=== PATIENT | female | born 1970 | race Caucasian/White ===

== ENCOUNTER 2017-03-18 12:31 | Day surgery (SDC) | payer MEDICARE ==
[~2017-03-18] VITALS: Ht 157.5 cm; Wt 59.1 kg
--- NOTE | ~2017-03-18 | OP ---
PATIENT NAME: SAMPSON SALGADO MEDICAL RECORD: [id number] :70 [facility] AD[facility] DATE: SURGEON: MEI ORTEGA MD DATE OF OPERATION: 03/18/2017 PROCEDURE: Colonoscopy with biopsy. REFERRING PHYSICIAN: Mis Rivera. INDICATIONS: Ms. Salgado is a pleasant 46-year-old woman who has had symptoms of alternating diarrhea, constipation with lower abdominal cramping pain, sometimes relieved by bowel movement. She has not had a colonoscopy in the past. She had an EGD on 10/24/2015 ([place] with findings showing mild gastritis), gastric biopsies were negative for H. pylori, duodenal biopsy showed no significant histopathologic abnormality, and esophageal biopsy showed no significant histopathologic abnormality. She presents for outpatient colonoscopy. PREMEDICATIONS: Total IV anesthesia (history of asthma/COPD), propofol 350 mg. INSTRUMENT: [employer] video colonoscope pediatric. PROCEDURE AND FINDINGS: After receiving informed consent, Ms. Salgado was placed in left lateral decubitus position and sedated as per anesthesia. After achieving adequate level of sedation, digital rectal exam was performed that showed no external hemorrhoidal tags, fissures or fistulas, normal sphincter tone, no palpable rectal masses. The colonoscope was introduced per rectally and advanced to the cecum without difficulty. The cecum, IC valve, and appendiceal orifice were identified. As the colonoscope was withdrawn, careful inspection was made of the lakhani of the colon. Overall mucosa had normal vascular and fold pattern. There was minimal patchy erythema in the ascending colon. Biopsies were obtained to rule out microscopic colitis. There was a small amount of liquid stool present in the colon which was collected for study. In the mid rectum were 2 diminutive polyps adjacent to each other that were cold biopsied. Retroflexion of rectum showed no internal hemorrhoids. A fair to good prep was present. Ms. Salgado tolerated the procedure well, no immediate complications. Withdrawal time was 13 minutes. ASSESSMENT: 1. Minimal nonspecific erythema involving the ascending colon may be prep related, rule out microscopic colitis. 2. Two diminutive rectal polyps status post cold biopsy. 3. Suspect irritable bowel syndrome. RECOMMENDATIONS: 1. Follow up histopathology. 2. NuLev 0.125 mg on the tongue q.4-6 hours p.r.n. abdominal cramping pain. 3. Benefiber or Metamucil daily. 4. Surveillance colonoscopy in 5 years. TRANSINT:[id number] Voice Confirmation ID: [id number] DOCUMENT ID: [id number] OPERATIVE REPORT [id number] NAOMI,MEI REYNA MD CC: [id number] DICTATION DATE: 03/18/17 1444 CNC LATHE PROGRAMMER: 03/18/17 1551 [facility] 03/18/17 [place] [id number]
[2017-03-18] MEDS ORDERED: LUNESTA2 M1 PO (13:20)
[2017-03-18] MEDS ORDERED: BUSPAR5 MG PO (13:22)
[2017-03-18] MEDS ORDERED: XELJANZ 11 MG (13:22)
[2017-03-18] MEDS ORDERED: ADVAIR 100/501 DISK INH (13:23)
[2017-03-18] MEDS ORDERED: LYRICA150 MG PO (13:24)
[2017-03-18] MEDS ORDERED: EFFEXOR XR150 MG (13:24)
[2017-03-18] MEDS ORDERED: EFFEXOR XR75 MG PO (13:24)
[2017-03-18] MEDS ORDERED: ZANAFLEX4 MG PO (13:25)
[2017-03-18] MEDS ORDERED: SINGULAIR10 MG PO (13:25)
[2017-03-18] MEDS ORDERED: OXYCODONE-ACETAMINOP (13:26)
[2017-03-18] MEDS ORDERED: [UNRECOGNIZED DRUG - REMARK] (13:27)
[2017-03-18] MEDS ORDERED: MIRALAX17 GM PO (13:28)
[2017-03-18 13:32] VITALS: BP 104/62; Ht 157.5 cm; Wt 59.1 kg
[2017-03-18 13:58] LABS: BASOPHILS 0.3 % (0-2); EOSINOPHILS 1.3 % (0-7); HEMATOCRIT 37.9 % (36.0-48.0); IMMATURE GRANULOCYTES 0.2 % (0-5); LYMPHOCYTES 29.7 % (15-50); MCH 31.6 pg (26.0-34.0); MCHC 34.3 g/dL (31.0-37.0); MEAN PLATELET VOLUME 9.3 fL (7.4-10.4); MONOCYTES 9.6 % (2-11); NEUTROPHILS 58.9 % (40-80); PLATELET COUNT 328 10x3/uL (130-400); RBC 4.12 10x6/uL (4.00-5.40); WBC 6.3 10x3/uL (4.8-10.8)
[2017-03-18 14:11] LABS: CALC OSMOLALITY 279 mosm/kg (275-300); CHLORIDE - SERUM 104 mmol/L (98-107); CREATININE - SERUM 0.7 mg/dL (0.6-1.3); GLUCOSE 87 mg/dL (74-106); POTASSIUM - SERUM 3.7 mmol/L (3.5-5.1); SODIUM 141 mmol/L (136-145); UREA NITROGEN 12 mg/dL (7-18); eGFR NON AFRICAN AMERICAN > 90 mL/min (90-120)
== END 2017-03-18 15:50 | disposition home or self-care (01) ==
LOC: D.OPS 12:31
PROVIDERS: Anesthesiology
DX: K62.1 Rectal polyp (principal); L53.8 Other specified erythematous conditions; Z01.812 Encounter for preprocedural laboratory examination

== ENCOUNTER → 2017-05-11 09:05 | Outpatient (CLI) | payer MEDICARE ==
[2017-03-18 13:32] VITALS: BMI 23.8
[~2017-05-11 09:05] MED LIST: ADVAIR 100/501 DISK INH; BUSPAR5 MG PO; EFFEXOR XR150 MG; EFFEXOR XR75 MG PO; LUNESTA2 M1 PO; LYRICA150 MG PO; MIRALAX17 GM PO; OXYCODONE-ACETAMINOP; SINGULAIR10 MG PO; XELJANZ 11 MG; ZANAFLEX4 MG PO; [UNRECOGNIZED DRUG - REMARK]
== END | disposition home or self-care (01) ==
LOC: D.US 09:05
DX: R10.11 Right upper quadrant pain (principal)

== ENCOUNTER 2017-07-28 05:35 | Day surgery (SDC) | payer MEDICARE, MEDICAID ==
[2017-07-27 08:17] LABS: HEMATOCRIT 40.5 % (36.0-48.0); HEMOGLOBIN 14.1 g/dL (12-16); MCH 32.3 pg (26.0-34.0); MCHC 34.8 g/dL (31.0-37.0); MCV 92.9 fL (80.0-100.0); MEAN PLATELET VOLUME 9.2 fL (7.4-10.4); RBC 4.36 10x6/uL (4.00-5.40); RDW 12.7 % (11.5-14.5); WBC 12.7 10x3/uL (4.8-10.8)
[~2017-07-28] VITALS: Ht 157.5 cm; Wt 66.7 kg
--- NOTE | ~2017-07-28 | OP ---
PATIENT NAME: SAMPSON SALGADO MEDICAL RECORD: [id number] :70 [facility] ADMISSION DATE: SURGEON: LISSA ABRAMS DPM DATE OF OPERATION: 07/28/2017 PREOPERATIVE DIAGNOSES: 1. Painful hardware, right foot. 2. Arthritis, right first metatarsophalangeal joint. POSTOPERATIVE DIAGNOSES: 1. Painful hardware, right foot. 2. Arthritis, right first metatarsophalangeal joint. PROCEDURES: 1. Removal of hardware, right foot. 2. Fusion, right first metatarsophalangeal joint. ANESTHESIA: Preoperative popliteal block per the anesthesia department with intraoperative general anesthesia. HEMOSTASIS: Right ankle tourniquet at 250 mmHg. PREOPERATIVE DETAILS: The patient was taken to the OR, placed on the operating table in a supine position. This was followed by induction of general anesthesia. The right extremity was then prepped and draped in usual aseptic technique followed by exsanguination of extremity and inflation of tourniquet. PROCEDURE #1: Removal of hardware, right foot. A 15-blade was used to create an incision over the dorsal aspect of the first ray extending to the base of proximal phalanx of the hallux. The incision was deepened down through subcutaneous tissue where a linear periosteal incision was made. The plate was visualized and the plate and the screws were removed. At this time, attention was directed to the first metatarsophalangeal joint. PROCEDURE #2: Fusion, right first metatarsophalangeal joint. The right first MPJ was freed with a McGlamry scoop elevator. There was noted to be significant destruction of the cartilaginous surface with previous partial removal from surgery. At this time, the joint surface of the head of the first metatarsal and base of proximal phalanx were prepared removing all cartilaginous surface. There was noted to be a large cyst in the central aspect of the first met head which was packed with Vitoss bone substitute. At this time, temporary fixation was used to hold the first MPJ in the proper position at which time, a 5-hole plate with 1 hole going through the plate and across the fusion site was placed in an excellent rigid internal fixation technique with excellent alignment of the hallux. The wound was flushed. The deep tissue was closed with 2-0 Vicryl, the subcutaneous tissue with 4-0 Rapide, and the skin was closed with 4-0 Rapide in a subcuticular technique followed by Dermabond. Adaptic, 4 x 4, and Conform were used to dress the wound followed by application of modified Becker compression dressing. Tourniquet was deflated. POSTOPERATIVE DETAILS: The patient tolerated the procedure well and left the OR with vital signs stable and vascular status at preoperative levels. The patient was transported to recovery per anesthesia in stable condition. TRANSINT:[id number] Voice Confirmation ID: [id number] DOCUMENT ID: [id number] OPERATIVE REPORT [id number] SAMPSON SALGADO MCKAY DPM at 0920 CC: [id number] DICTATION DATE: 07/28/17 1033 GLOBAL LOGISTICS ANALYST: 07/28/17 1109 [facility] 07/28/17 [place] [id number] [place] [address]
[~2017-07-28 05:35] MED LIST changes: +ATIVAN1 MG PO; +CYCLOBENZAPRINE10 MG PO; +NICORELIEF4 MG PO; +VENTOLIN HFA18 GM INH
[2017-07-28 06:24] VITALS: BP 106/73; Ht 157.5 cm; Wt 66.7 kg
== END 2017-07-28 12:08 | disposition home or self-care (01) ==
LOC: D.OPS 05:35 → D.PAN 07:40 → D.OPS 08:00
PROVIDERS: Anesthesiology
DX: T84.84XA Pain due to internal orthopedic prosthetic devices, implants and grafts, initial encounter (principal); M19.071 Primary osteoarthritis, right ankle and foot; Z01.812 Encounter for preprocedural laboratory examination

== ENCOUNTER → 2017-09-13 15:26 | Outpatient (CLI) | payer MEDICARE, MEDICAID ==
[2017-07-28 06:24] VITALS: BMI 26.9
[~2017-09-13 15:26] MED LIST changes: -EFFEXOR XR150 MG; +EFFEXOR XR150 MG PO; +FUROSEMIDE20 MG PO; +HYDROCODONE-APA1 TAB PO; +K-TAB10 MEQ PO; +PROTONIX40 MG PO; +ZOFRAN4 MG PO
== END | disposition home or self-care (01) ==
LOC: D.CT 15:26
DX: R10.9 Unspecified abdominal pain (principal)

== ENCOUNTER 2017-10-08 10:10 | Observation (INO) | payer MEDICARE, MEDICAID ==
[~2017-10-08] VITALS: Ht 157.5 cm; Wt 72.1 kg
--- NOTE | ~2017-10-08 | EC ---
PATIENT:SAMPSON SALGADO DATE OF SERVICE: 10/08/17 SEX: F MEDICAL RECORD: [id number] DATE OF : 70 LOCATION:D.M2 D.210 AGE OF PATIENT: 47 ADMISSION DATE: 10/08/17 REFERRING PHYSICIAN: INTERPRETING PHYSICIAN: KERRI TUBBS MD ECHOCARDIOGRAM REPORT ECHO CHARGES 4 ECHO COMPLETE Date: 10/08/17 CLINICAL DIAGNOSIS: CP/EDEMA ECHOCARDIOGRAPHIC MEASUREMENTS (adult normal given) AC root (d.<3.7cm) 3.0 cm LV Septum d (<1.2 cm> 1.2 cm Valve Excursion 1.6 cm LV Septum (systole) 1.8 cm Left Atria (s.<4.0cm> 3.5 cm LVPW d(<1.2cm) 1.1 cm RV (d.<2.3cm) 2.3 cm LVPW (sytole) 2.0 cm LV diastole(<5.6CM) 4.2 cm MV E-F(>70mm/sec) cm LV systole 2.1 cm LVOT Diameter 1.6 cm MV exc.(>10mm) cm Est.ejection fraction (50-75%) % DOPPLER: LVIT cm/sec A 77.0 cm/sec E 100 cm/sec LA cm/sec RVSP 33.2 mmHg LVOT 135 cm/sec AOP1/2T m/s Asc. Ao 149 cm/sec RVOT 69.0 cm/sec RA cm/sec PA 103 cm/sec AV Gradient Peak 8.9 mmHg AV Mean 4.3 mmHg AV Area 1.4 cm MV Gradient Peak 5.4 mmHg MV Mean 2.2 mmHg MV Area cm COMMENTS: Core Stripper: Steven CUBAOE Aircraft Engine Assembler: 1 Dr. Tubbs TAPE# PACS Pericardial Effusion N DATE OF SERVICE: 10/09/2017 FINDINGS: 1. Left ventricular chamber size is within normal limits. Left ventricular systolic function is normal. Overall ejection fraction estimated at 60%. 2. Left atrium, right atrium, and right ventricular chamber sizes are within normal limits. 3. Valvular structures have normal structure and motion. 4. Doppler interrogation reveals mild mitral regurgitation, mild tricuspid regurgitation. No other valvular insufficiency or stenosis. Pulmonary systolic ECHOCARDIOGRAM REPORT [id number] SAMPSON SALGADOLENE pressure is estimated at 33 mmHg. 5. No evidence of pericardial effusion or left ventricular thrombus. TRANSINT:[id number] Voice Confirmation ID: [id number] DOCUMENT ID: [id number] KERRI TUBBS MD at 1950 CC: [id number] DICTATION DATE: 10/09/17 0955 WOOD MILLING MACHINE OPERATOR: 10/09/17 1043 [facility] [place] 10/09/17 [place] [id number] [place] [id number]
--- NOTE | ~2017-10-08 | CN ---
PATIENT NAME:SAMPSON SALGADO MEDICAL RECORD: [id number] : 70 LOCATION:D.M2 D.2103 ADMIT DATE: 10/08/17 ACCOUNT: [id number] CONSULTING PHYSICIAN: KERRI BERNAL MD REFERRING PHYSICIAN: CHARO MEDINA DO DATE OF CONSULTATION: 10/08/2017 CARDIOLOGY CONSULT ADMITTING DIAGNOSES: 1. Chest pain, atypical. 2. Smoking. 3. COPD. 4. Shortness of breath. HISTORY OF PRESENT ILLNESS: Ms. Salgado presents with episodes of chest pain. It is a sharp stabbing chest pain that is mostly under her left breast, somewhat down to her axillary area of her left arm and some under her breast. It is a stabbing, sharp type pain definitely positional, worse when she is lying down and improves when she sits up. Her only other complaint is progressive shortness of breath over the past few months. PHYSICAL EXAMINATION: GENERAL APPEARANCE: Well-nourished, well-developed, appears stated age. Level of distress, comfortable. PSYCHIATRIC: Mental status, alert, normal affect. Orientation, oriented to time, place and person. EYES: Lids and conjunctiva, noninjected. No discharge, no pallor. ENT: Lips, teeth, gums, normal dentition. Oropharynx, no cyanosis, no pallor. NECK: Carotid arteries, bilateral normal upstroke, no bruits, no thrills. JUGULAR VEINS: No jugular venous pressure or distention. CERVICAL LYMPH NODES: Nontender, nonenlarged. THYROID: Not enlarged. Nontender. No nodules. LUNGS: Respiratory effort, unlabored. CHEST: Normal curvature. No thoracic deformity. No chest wall tenderness. Percussion, resonant. Auscultation, clear. No wheezes, no rales, no rhonchi. CARDIOVASCULAR: Precordial exam, nondisplaced. No heaves or pericardial thrills. Rate and rhythm, regular. Heart sounds, normal S1, normal S2. No S3, no gallop, no rub. Systolic murmur, not heard. Diastolic murmur, not heard. EXTREMITIES: No cyanosis, no edema. Peripheral pulses, full and equal in all extremities, except as noted. No bruits appreciated. ABDOMEN: Soft, nondistended. Normal aorta. No bruit. Nontender. No masses. Liver, nontender, no hepatomegaly. Spleen, nontender, no splenomegaly. MUSCULOSKELETAL: No joint tenderness. No joint swelling. No erythema. NEUROLOGICAL: Normal gait, normal strength, normal tone. SKIN: Warm and dry. EKG is with no ST-T abnormalities. Troponin is normal. OVERALL IMPRESSION: Very atypical from a cardiac standpoint, this is most likely musculoskeletal and/or pulmonary in nature. At this time, it does not appear that we will get an echocardiogram secondary to shortness of breath, no other cardiac workup or treatment is necessary. TRANSINT:[id number] Voice Confirmation ID: [id number] DOCUMENT ID: [id number] CONSULT REPORT [id number] SAMPSON SALGADO, KERRI IGLESIAS at 1843 CC: [id number] DICTATION DATE: 10/08/17 1236 CHECK WRITER SALESPERSON: 10/08/17 1243 ADM IN [place] [id number] [place] [id number]
--- NOTE | ~2017-10-08 | DS ---
PATIENT:SAMPSON SALGADO :70 MEDICAL RECORD: [id number] DISCHARGE SUMMARY ADMISSION DATE: 10/08/17 DISCHARGE DATE: 10/09/17 DATE OF ADMISSION: 10/08/2017 DATE OF DISCHARGE: 10/09/2017 ADMISSION DIAGNOSES: Atypical chest pain, edema, elevated D-dimer, shortness of breath. DISCHARGE DIAGNOSES: Atypical chest pain, edema resolved, elevated D-dimer recurrent, shortness of breath with history of chronic obstructive pulmonary disease/asthma. CONSULTS: Cardiology, Arvind Tubbs MD PROCEDURES: CTA of the chest, PE protocol and bilateral lower extremity ultrasound, both of which were negative. Cardiac enzymes were normal. HOSPITAL COURSE: The patient was admitted to the clinic by Dr. Lloyd with edema. She was diuresed. Cardiology consulted. Echocardiogram obtained, which was negative. The patient cleared by cardiology. Cardiac enzymes negative. The patient is feeling much better, edema completely resolved after diuresis. CTA of the chest and lower extremity ultrasound was negative. The patient was discharged home in stable and improved condition. DISCHARGE MEDICATIONS: Per med rec. The patient is anxious to go home. PHYSICAL EXAMINATION: VITAL SIGNS ON DISCHARGE: Temperature 98.2, blood pressure 113/82, heart rate 75, respirations 18, O2 sats 97% on room air. GENERAL: The patient is alert, oriented, no acute distress. HEART: Regular rate and rhythm. LUNGS: Clear to auscultation bilaterally. Breathing is nonlabored. ABDOMEN: Soft. EXTREMITIES: Present times 4. No edema. NEUROLOGIC: Intact. The patient will follow up with Dr. Lloyd next week. See chart for further details. TRANSINT:[id number] Voice Confirmation ID: [id number] DOCUMENT ID: [id number] BAR LUIS DO at 1325 CC: [id number] DICTATION DATE: 10/09/17 1228 FIRE EXTINGUISHER CHARGER: 10/09/17 1306 [facility] [place] 10/09/17 [place] [id number]
[~2017-10-08 10:10] MED LIST changes: -FUROSEMIDE20 MG PO; -HYDROCODONE-APA1 TAB PO; -K-TAB10 MEQ PO; -PROTONIX40 MG PO; -ZOFRAN4 MG PO
[2017-10-08] MEDS ORDERED: HYDROCODONE-APA1 TAB PO (10:40)
[2017-10-08] MEDS ORDERED: K-TAB10 MEQ PO (10:42)
[2017-10-08] MEDS ORDERED: FUROSEMIDE20 MG PO (10:42)
[2017-10-08] MEDS ORDERED: PROTONIX40 MG PO (10:43)
[2017-10-08] MEDS ORDERED: ZOFRAN4 MG PO (10:44)
[2017-10-08 10:50] VITALS: BP 135/85; BMI 29.1
[2017-10-08 11:30] LABS: BASOPHILS 0.3 % (0-2); EOSINOPHILS 1.7 % (0-7); HEMATOCRIT 35.4 % (36.0-48.0); HEMOGLOBIN 12.3 g/dL (12-16); IMMATURE GRANULOCYTES 0.3 % (0-5); LYMPHOCYTES 24.8 % (15-50); MCH 32.5 pg (26.0-34.0); MCHC 34.7 g/dL (31.0-37.0); MCV 93.4 fL (80.0-100.0); MEAN PLATELET VOLUME 8.4 fL (7.4-10.4); MONOCYTES 6.9 % (2-11); PLATELET COUNT 307 10x3/uL (130-400); RBC 3.79 10x6/uL (4.00-5.40); RDW 13.1 % (11.5-14.5); WBC 6.9 10x3/uL (4.8-10.8)
[2017-10-08 11:50] LABS: ALBUMIN 3.2 g/dL (3.4-5.0); ALKALINE PHOSPHATASE 112 U/L (46-116); ALT (SGPT) 32 U/L (10-68); BILIRUBIN - TOTAL 0.19 mg/dL (0.2-1.3); CALC OSMOLALITY 278 mosm/kg (275-300); CALCIUM 8.5 mg/dL (8.5-10.1); CARBON DIOXIDE 28.4 mmol/L (21.0-32.0); CHLORIDE - SERUM 104 mmol/L (98-107); CREATININE - SERUM 0.8 mg/dL (0.6-1.3); GLUCOSE 88 mg/dL (74-106); POTASSIUM - SERUM 3.4 mmol/L (3.5-5.1); PROTEIN - SERUM 6.8 g/dL (6.4-8.2); SODIUM 141 mmol/L (136-145); UREA NITROGEN 9 mg/dL (7-18); eGFR NON AFRICAN AMERICAN 81 mL/min (90-120)
[2017-10-08 11:59] LABS: CKMB 2.5 U/L (0.0-3.6); CREATINE KINASE 154 UL (21-215); MAGNESIUM - SERUM 2.1 mg/dL (1.8-2.4)
[2017-10-08 12:00] LABS: TROPONIN-I < 0.017 ng/mL (0.000-0.060)
[2017-10-08 12:24] LABS: APPEARANCE HAZY (CLEAR); BILIRUBIN NEGATIVE (NEGATIVE); COLOR STRAW (YELLOW); GLUCOSE NEGATIVE (NEGATIVE); KETONE NEGATIVE (NEGATIVE); NITRITE NEGATIVE (NEGATIVE); PROTEIN NEGATIVE (NEGATIVE); SPECIFIC GRAVITY 1.005 (1.005-1.020); UROBILINOGEN NORMAL (NORMAL)
[2017-10-08 16:23] VITALS: BP 132/70
[2017-10-08 17:54] LABS: CKMB 1.5 U/L (0.0-3.6); CREATINE KINASE 132 UL (21-215); TROPONIN-I < 0.017 ng/mL (0.000-0.060)
[2017-10-08 20:16] VITALS: BP 115/58
[2017-10-08 23:42] LABS: CKMB 1.6 U/L (0.0-3.6); CREATINE KINASE 120 UL (21-215); TROPONIN-I < 0.017 ng/mL (0.000-0.060)
[2017-10-09 01:25] VITALS: BP 113/78
[2017-10-09 05:03] VITALS: BP 129/78
[2017-10-09 06:25] LABS: BASOPHILS 0.3 % (0-2); EOSINOPHILS 2.9 % (0-7); HEMATOCRIT 38.2 % (36.0-48.0); HEMOGLOBIN 13.3 g/dL (12-16); IMMATURE GRANULOCYTES 0.2 % (0-5); LYMPHOCYTES 29.3 % (15-50); MCH 32.5 pg (26.0-34.0); MCHC 34.8 g/dL (31.0-37.0); MCV 93.4 fL (80.0-100.0); MEAN PLATELET VOLUME 9.1 fL (7.4-10.4); MONOCYTES 15.5 % (2-11); NEUTROPHILS 51.8 % (40-80); PLATELET COUNT 355 10x3/uL (130-400); RBC 4.09 10x6/uL (4.00-5.40); RDW 13.4 % (11.5-14.5); WBC 6.7 10x3/uL (4.8-10.8)
[2017-10-09 06:27] LABS: ALBUMIN 3.1 g/dL (3.4-5.0); ALKALINE PHOSPHATASE 106 U/L (46-116); ALT (SGPT) 34 U/L (10-68); BILIRUBIN - TOTAL 0.17 mg/dL (0.2-1.3); CALC OSMOLALITY 275 mosm/kg (275-300); CALCIUM 8.9 mg/dL (8.5-10.1); CARBON DIOXIDE 27.6 mmol/L (21.0-32.0); CHLORIDE - SERUM 103 mmol/L (98-107); CREATININE - SERUM 0.8 mg/dL (0.6-1.3); GLUCOSE 90 mg/dL (74-106); POTASSIUM - SERUM 3.9 mmol/L (3.5-5.1); PRO BNP 289 pg/mL (0-125); PROTEIN - SERUM 6.8 g/dL (6.4-8.2); SODIUM 138 mmol/L (136-145); eGFR NON AFRICAN AMERICAN 81 mL/min (90-120)
[2017-10-09 06:30] LABS: UREA NITROGEN 12 mg/dL (7-18)
[2017-10-09 08:41] VITALS: BP 113/82
[2017-10-09 12:39] VITALS: BP 124/79
[2017-10-19] MEDS ORDERED: ATIVAN1 MG PO (12:50)
[2017-10-20 06:35] VITALS: Ht 157.5 cm; Wt 72.1 kg
== END 2017-10-09 13:20 | disposition home or self-care (01) ==
LOC: OBSVTIME 10:10 → D.M2 10:10 → UNDOADMIN 10:10 → D.M2 10:10 → EDSTATUS 11-02 11:24
PROVIDERS: Family Medicine
DX: R07.89 Other chest pain (principal); J44.9 Chronic obstructive pulmonary disease, unspecified; R60.9 Edema, unspecified; K21.9 Gastro-esophageal reflux disease without esophagitis; F41.9 Anxiety disorder, unspecified; F31.9 Bipolar disorder, unspecified; Z72.0 Tobacco use

== ENCOUNTER 2017-10-20 05:30 | Day surgery (SDC) | payer MEDICARE, MEDICAID ==
[2017-10-19 13:19] LABS: BASOPHILS 0.6 % (0-2); EOSINOPHILS 2.1 % (0-7); HEMATOCRIT 40.5 % (36.0-48.0); IMMATURE GRANULOCYTES 0.2 % (0-5); LYMPHOCYTES 29.9 % (15-50); MCH 32.6 pg (26.0-34.0); MCHC 34.6 g/dL (31.0-37.0); MCV 94.2 fL (80.0-100.0); MEAN PLATELET VOLUME 9.3 fL (7.4-10.4); MONOCYTES 6.1 % (2-11); NEUTROPHILS 61.1 % (40-80); WBC 8.7 10x3/uL (4.8-10.8)
[2017-10-19 13:34] LABS: ANION GAP 16.2 mmol/L (8-16); CALCIUM 9.2 mg/dL (8.5-10.1); CARBON DIOXIDE 25.8 mmol/L (21.0-32.0)
[2017-10-19 13:57] LABS: PLATELET COUNT 448 10x3/uL (130-400)
[~2017-10-20] VITALS: Ht 160 cm; Wt 68.5 kg
[~2017-10-20 05:30] MED LIST changes: +FUROSEMIDE20 MG PO; +HYDROCODONE-APA1 TAB PO; +K-TAB10 MEQ PO; +PROTONIX40 MG PO; +ZOFRAN4 MG PO
[2017-10-20 06:35] VITALS: BP 110/78; Ht 160 cm; Wt 68.5 kg
== END 2017-10-20 13:15 | disposition home or self-care (01) ==
LOC: D.OPS 05:30 → D.PAN 07:30 → D.OPS 13:15
PROVIDERS: Obstetrics & Gynecology
DX: N83.02 Follicular cyst of left ovary (principal); N83.01 Follicular cyst of right ovary; N73.6 Female pelvic peritoneal adhesions (postinfective); Z80.41 Family history of malignant neoplasm of ovary; Z01.812 Encounter for preprocedural laboratory examination; Z88.8 Allergy status to other drugs, medicaments and biological substances; Z88.6 Allergy status to analgesic agent; Z88.1 Allergy status to other antibiotic agents; Z88.0 Allergy status to penicillin; Z91.013 Allergy to seafood; Z79.899 Other long term (current) drug therapy

== ENCOUNTER → 2018-04-15 13:39 | Outpatient (CLI) | payer MEDICARE, MEDICAID ==
[2017-10-20 06:35] VITALS: BMI 26.8
== END | disposition home or self-care (01) ==
LOC: D.CT 13:39
PROVIDERS: ATTEND Family Medicine
DX: R41.0 Disorientation, unspecified (principal)

== ENCOUNTER 2018-05-20 16:57 | Inpatient (IN) | payer MEDICARE, MEDICAID ==
[~2018-05-20] VITALS: Ht 157.5 cm; Wt 66.8 kg
[2018-05-20] MEDS ORDERED: K-TAB10 MEQ PO (17:25)
[2018-05-20] MEDS ORDERED: FUROSEMIDE20 MG PO (17:26)
[2018-05-20] MEDS ORDERED: HYDROCODON-ACE1 EA10 PO (17:29)
[2018-05-20] MEDS ORDERED: LAMICTAL25 MG PO (17:33)
[2018-05-20] MEDS ORDERED: VALIUM5 MG PO (17:34)
[2018-05-20 17:55] LABS: BASOPHILS 0.3 % (0-2); EOSINOPHILS 0.1 % (0-7); IMMATURE GRANULOCYTES 0.2 % (0-5); LYMPHOCYTES 14.9 % (15-50); MCHC 34.2 g/dL (31.0-37.0); MCV 90.5 fL (80.0-100.0); MEAN PLATELET VOLUME 8.9 fL (7.4-10.4); MONOCYTES 8.4 % (2-11); NEUTROPHILS 76.1 % (40-80); PLATELET COUNT 424 10x3/uL (130-400); WBC 11.9 10x3/uL (4.8-10.8)
[2018-05-20 18:36] LABS: ALBUMIN 3.9 g/dL (3.4-5.0); ANION GAP 11.9 mmol/L (8-16); BILIRUBIN - TOTAL 0.21 mg/dL (0.2-1.3); CALCIUM 9.6 mg/dL (8.5-10.1); CARBON DIOXIDE 30.3 mmol/L (21.0-32.0); CREATININE - SERUM 1.1 mg/dL (0.6-1.3); POTASSIUM - SERUM 3.2 mmol/L (3.5-5.1); PROTEIN - SERUM 7.9 g/dL (6.4-8.2)
[2018-05-20 20:00] VITALS: BP 118/47
[2018-05-20 21:45] LABS: APPEARANCE CLEAR (CLEAR); BILIRUBIN NEGATIVE (NEGATIVE); COLOR YELLOW (YELLOW); GLUCOSE NEGATIVE (NEGATIVE); KETONE NEGATIVE (NEGATIVE); NITRITE NEGATIVE (NEGATIVE); PROTEIN NEGATIVE (NEGATIVE); UROBILINOGEN NORMAL (NORMAL)
[2018-05-20 22:20] VITALS: BP 118/47; Ht 157.5 cm; Wt 66.8 kg
[2018-05-21] VITALS (7 sets, daily range): BP systolic 88–121; BP diastolic 51–74
[2018-05-21 05:00] LABS: BASOPHILS 0.3 % (0-2); EOSINOPHILS 2.3 % (0-7); HEMATOCRIT 40.2 % (36.0-48.0); HEMOGLOBIN 13.5 g/dL (12-16); IMMATURE GRANULOCYTES 0.1 % (0-5); LYMPHOCYTES 35.1 % (15-50); MCH 30.8 pg (26.0-34.0); MCHC 33.6 g/dL (31.0-37.0); MCV 91.6 fL (80.0-100.0); MONOCYTES 11.5 % (2-11); NEUTROPHILS 50.7 % (40-80); PLATELET COUNT 408 10x3/uL (130-400); RBC 4.39 10x6/uL (4.00-5.40); RDW 13.1 % (11.5-14.5)
[2018-05-21 05:03] LABS: WBC 7.8 10x3/uL (4.8-10.8)
[2018-05-21 05:23] LABS: ALBUMIN 3.7 g/dL (3.4-5.0); ALKALINE PHOSPHATASE 133 U/L (46-116); ALT (SGPT) 65 U/L (10-68); CALC OSMOLALITY 283 mosm/kg (275-300); CALCIUM 9.3 mg/dL (8.5-10.1); CARBON DIOXIDE 28.4 mmol/L (21.0-32.0); CHLORIDE - SERUM 101 mmol/L (98-107); GLUCOSE 97 mg/dL (74-106); POTASSIUM - SERUM 3.2 mmol/L (3.5-5.1); PROTEIN - SERUM 7.7 g/dL (6.4-8.2); SODIUM 139 mmol/L (136-145); UREA NITROGEN 28 mg/dL (7-18); eGFR NON AFRICAN AMERICAN 81 mL/min (90-120)
[2018-05-21 05:24] LABS: CREATININE - SERUM 0.8 mg/dL (0.6-1.3)
[2018-05-22] VITALS: BP 104/67
[2018-05-22 03:00] VITALS: BP 91/56
[2018-05-22 09:08] VITALS: BP 106/64
[2018-05-22] MEDS ORDERED: MIRALAX17 GM PO (10:33)
== END 2018-05-22 11:10 | disposition home or self-care (01) | DRG 392 ==
LOC: D.SDCHOLD 16:57 → D.MS 17:06
PROVIDERS: Family Medicine; ADMIT Internal Medicine Nephrology; ATTEND Internal Medicine Nephrology
DX: K59.00 Constipation, unspecified (principal); E87.6 Hypokalemia; F41.9 Anxiety disorder, unspecified; K21.9 Gastro-esophageal reflux disease without esophagitis; F31.9 Bipolar disorder, unspecified; M79.7 Fibromyalgia; Z87.891 Personal history of nicotine dependence

== ENCOUNTER 2018-06-08 12:15 | Inpatient (IN) | payer MEDICARE, MEDICAID ==
[~2018-06-08 12:15] MED LIST changes: +HYDROCODON-ACE1 EA10 PO; +LAMICTAL25 MG PO; +VALIUM5 MG PO
--- NOTE | 2018-06-08 14:59 | NUR ---
NEW PATIENT DIRECT ADMIT FROM DR BERNAL OFFICE. ADMITTING DIAGNOSIS ABD PAIN AND SOB. PATIENT IS STABLE AND VSS. ADMISSION HISTORY AND ASSESSMENT COMPLETED. IV ACCESS TO RT AC. DUCT LAYER PLACED. URINE SPECIMEN COLLECTED AND TAKEN TO THE LAB. WILL CONTINUE WITH PLAN OF CARE. SR UP X 2 BED IN LOW POSTION AND CALL LIGHT IN REACH.
[2018-06-08] MEDS ORDERED: MINIPRESS 5 MG C5 MG PO (15:13)
[2018-06-08] MEDS ORDERED: REMERON15 MG PO (15:14)
[2018-06-08 15:33] VITALS: BP 103/71; BMI 28.0
[2018-06-08 15:35] LABS: BASOPHILS 0.3 % (0-2); EOSINOPHILS 3.4 % (0-7); HEMATOCRIT 37.2 % (36.0-48.0); HEMOGLOBIN 12.8 g/dL (12-16); LYMPHOCYTES 21.5 % (15-50); MCH 31.2 pg (26.0-34.0); MCHC 34.4 g/dL (31.0-37.0); MCV 90.7 fL (80.0-100.0); MEAN PLATELET VOLUME 9.3 fL (7.4-10.4); MONOCYTES 12.1 % (2-11); NEUTROPHILS 62.7 % (40-80); RDW 12.9 % (11.5-14.5); WBC 7.7 10x3/uL (4.8-10.8)
[2018-06-08 15:38] LABS: PLATELET COUNT 246 10x3/uL (130-400)
[2018-06-08 16:02] LABS: ALBUMIN 3.3 g/dL (3.4-5.0); ANION GAP 14.3 mmol/L (8-16); BILIRUBIN - TOTAL 0.25 mg/dL (0.2-1.3); CALCIUM 8.6 mg/dL (8.5-10.1); CARBON DIOXIDE 28.3 mmol/L (21.0-32.0); CREATININE - SERUM 0.9 mg/dL (0.6-1.3); MAGNESIUM - SERUM 1.6 mg/dL (1.8-2.4); PROTEIN - SERUM 6.5 g/dL (6.4-8.2)
[2018-06-08 16:07] LABS: POTASSIUM - SERUM 2.6 mmol/L (3.5-5.1)
[2018-06-08 16:12] LABS: APPEARANCE CLEAR (CLEAR); BILIRUBIN NEGATIVE (NEGATIVE); COLOR YELLOW (YELLOW); GLUCOSE NEGATIVE (NEGATIVE); KETONE NEGATIVE (NEGATIVE); NITRITE NEGATIVE (NEGATIVE); PROTEIN NEGATIVE (NEGATIVE); UROBILINOGEN NORMAL (NORMAL)
[2018-06-08 21:21] VITALS: BP 112/65
[2018-06-09] VITALS (7 sets, daily range): BP systolic 93–121; BP diastolic 51–78
--- NOTE | 2018-06-09 02:31 | NUR ---
DILAUDID 1 MG GIVEN FOR C/O PAIN TO ABD, RATES PAIN AT AN 8 ON PAIN SCALE.
[2018-06-09 04:41] LABS: BASOPHILS 0.1 % (0-2); HEMATOCRIT 36.5 % (36.0-48.0); HEMOGLOBIN 12.2 g/dL (12-16); IMMATURE GRANULOCYTES 0.1 % (0-5); LYMPHOCYTES 25.3 % (15-50); MCH 30.4 pg (26.0-34.0); MCHC 33.4 g/dL (31.0-37.0); MEAN PLATELET VOLUME 9.2 fL (7.4-10.4); MONOCYTES 14.1 % (2-11); NEUTROPHILS 57.4 % (40-80); PLATELET COUNT 260 10x3/uL (130-400); RBC 4.01 10x6/uL (4.00-5.40); RDW 12.9 % (11.5-14.5); WBC 6.7 10x3/uL (4.8-10.8)
[2018-06-09 05:14] LABS: BILIRUBIN - TOTAL 0.27 mg/dL (0.2-1.3); CALCIUM 8.7 mg/dL (8.5-10.1); CARBON DIOXIDE 31.2 mmol/L (21.0-32.0); PROTEIN - SERUM 6.8 g/dL (6.4-8.2); T4 THYROXIN - FREE 0.72 ng/dL (0.76-1.46); THYROID STIMULATING HORMONE 1.14 uIU/mL (0.36-3.74)
[2018-06-09 05:15] LABS: POTASSIUM - SERUM 3.2 mmol/L (3.5-5.1)
--- NOTE | 2018-06-09 07:24 | NUR ---
MORNING ROUNDS MADE. PT LAYING IN BED. C/O PAIN IN ABD. INFORMED PT THAT I WOULD CHECK AND SEE IF IT WAS TIME FOR PAIN MEDS. A/O X 4. UP AB YARI. R AC IV SL, PATENT. NO REDNESS OR EDEMA NOTED. RM AIR. PT NPO AT THIS TIME FOR CT OF ABD THIS AM. NO EDEMA NOTED. LUNGS CLEAR. FALL PRECAUTIONS IN PLACE. BED LOWERED AND LOCKED. CL IN REACH. WILL CTM
--- NOTE | 2018-06-09 08:29 | NUR ---
PT TOOK MEDS WITHOUT DIFFICULTY. VITALS STABLE. STATES PAIN AT A 10/10 IN ABD. DILAUDID GIVEN 1MG TO R AC IV, PATENT, NS @ 50, NO REDNESS OR EDEMA NOTED. FALL PRECAUTIONS IN PLACE. WILL CTM.
--- NOTE | 2018-06-09 09:58 | NUR ---
I have reviewed this patient and I concur with the Shift Assessment completed by the Licensed Practical Nurse today this shift.
--- NOTE | 2018-06-09 10:37 | NUR ---
PT TO CT VIA WHEELCHAIR
--- NOTE | 2018-06-09 11:32 | NUR ---
D5W STARTED TO IV IN L UPPER ARM. PATENT, NO REDNESS OR EDEMA NOTED. PT RESTING IN BED COMFORTABLY. O2 @ 3L VIA HIGH FLOW. FALL PRECAUTIONS IN PLACE. WILL CTM.
--- NOTE | 2018-06-09 17:20 | NUR ---
PT REPORTS PAIN OF A 10/10 IN ABD. DILAUDID 1MG GIVEN TO IV IN R AC, PATENT, NO REDNESS OR EDEMA NOTED. PT SITTING UP EATING DINNER. FALL PRECAUTIONS IN PLACE. WILL CTM.
--- NOTE | 2018-06-09 20:26 | NUR ---
HS MEDS GIVEN WITH FRESH ICE WATER.
--- NOTE | 2018-06-09 21:17 | NUR ---
DILAUDID 1 MG GIVEN FOR C/O PAIN TO RIGHT UPPER QUADRANT OF ABD, RATES PAIN AT AN 8 ON PAIN SCALE.
[2018-06-10 00:54] VITALS: BP 93/55
--- NOTE | 2018-06-10 03:14 | NUR ---
I have reviewed this patient and I concur with the Shift Assessment completed by the Licensed Practical Nurse today this shift.
--- NOTE | 2018-06-10 03:22 | NUR ---
RESTING WITH EYES CLOSED, RESPERATIONS EVEN, NO S/S DISTRESS NOTED.
[2018-06-10 05:23] VITALS: BP 107/59
[2018-06-10 06:58] LABS: BASOPHILS 0.3 % (0-2); EOSINOPHILS 2.4 % (0-7); HEMATOCRIT 34.7 % (36.0-48.0); HEMOGLOBIN 11.4 g/dL (12-16); IMMATURE GRANULOCYTES 0.2 % (0-5); LYMPHOCYTES 26.7 % (15-50); MCH 30.3 pg (26.0-34.0); MCHC 32.9 g/dL (31.0-37.0); MCV 92.3 fL (80.0-100.0); MEAN PLATELET VOLUME 9.2 fL (7.4-10.4); MONOCYTES 15.1 % (2-11); NEUTROPHILS 55.3 % (40-80); PLATELET COUNT 259 10x3/uL (130-400); RBC 3.76 10x6/uL (4.00-5.40); RDW 13.2 % (11.5-14.5); WBC 6.3 10x3/uL (4.8-10.8)
[2018-06-10 07:17] LABS: ALBUMIN 2.7 g/dL (3.4-5.0); ALKALINE PHOSPHATASE 117 U/L (46-116); ALT (SGPT) 28 U/L (10-68); BILIRUBIN - TOTAL 0.24 mg/dL (0.2-1.3); CALC OSMOLALITY 277 mosm/kg (275-300); CARBON DIOXIDE 30.7 mmol/L (21.0-32.0); CHLORIDE - SERUM 102 mmol/L (98-107); CREATININE - SERUM 0.8 mg/dL (0.6-1.3); GLUCOSE 97 mg/dL (74-106); INR 0.95 (0.85-1.17); POTASSIUM - SERUM 3.7 mmol/L (3.5-5.1); PROTEIN - SERUM 6.4 g/dL (6.4-8.2); PROTIME 12.2 SECONDS (11.6-15.0); SODIUM 140 mmol/L (136-145); UREA NITROGEN 11 mg/dL (7-18); eGFR NON AFRICAN AMERICAN 81 mL/min (90-120)
--- NOTE | 2018-06-10 07:55 | NUR ---
ASSESSMENT DONE DENIES NEEDS.
[2018-06-10 08:49] LABS: ERYTHROCYTE SEDIMENTATION RATE 63 mm/hr (0-20)
[2018-06-10 09:30] VITALS: BP 105/52
[2018-06-10 11:00] VITALS: BP 111/76
[2018-06-10 14:20] VITALS: BMI 28.2
--- NOTE | 2018-06-10 15:54 | NUR ---
I have reviewed this patient and I concur with the Shift Assessment completed by the Licensed Practical Nurse today this shift.
[2018-06-10 16:00] VITALS: BP 132/72
--- NOTE | 2018-06-10 16:48 | [facility]ARE ---
CASE MANAGEMENT DISCHARGE SUMMARY PATIENT: SAMPSON SALGADO UNIT: [id number] ADM DATE: 06/08/18 AGE: 47 : 70 SEX: F [facility] [address] AUTHOR: CHERYL DOTY PHYSICIAN: REFERRING PHYSICIAN: CHARO MEDINA DO DATE OF SERVICE: 06/10/18 Discharge Plan Patient Name: SAMPSON SALGADO Facility: [facility]:[place] : 1970 Planned Disposition: Home Anticipated Discharge Date: 06/10/18 Discharge Date: Expected LOS: 2 Initial Reviewer: [email or web address] Initial Review Date: 06/10/2018 Generated: 06/10/18 5:47 pm Patient Name: SAMPSON SALGADO Page [id number] at 1648 All edits/amendments must be made on the electronic document DICTATION DATE: 06/10/181646 ACUTE SPECIALIST: SHANTI 06/10/181646 RPT#: [id number] DC DATE: STATUS: ADM IN [facility] [address] [place] [address] END OF REPORT
--- NOTE | 2018-06-10 16:57 | MORECARE ---
CASE MANAGEMENT DISCHARGE SUMMARY PATIENT: SAMPSON SALGADO UNIT: [id number] ADM DATE: 06/08/18 AGE: 47 : 70 SEX: F ROOM/BED: D.5745 AUTHOR: CHERYL DOTY PHYSICIAN: REFERRING PHYSICIAN: CHARO MEDINA DO DATE OF SERVICE: 06/10/18 Discharge Plan Patient Name: SAMPSON SALGADO Facility: [facility]:[place] : 1970 Planned Disposition: Home Anticipated Discharge Date: 06/10/18 Discharge Date: Expected LOS: 2 Initial Reviewer: [email or web address] Initial Review Date: 06/10/2018 Generated: 06/10/18 5:57 pm Comments DCP- Discharge Planning Updated by [email or web address]: Darrell Nash on 06/10/18 3:[address] Patient Name: SAMPOSN SALGADO Admission Status: Elective Accout number: [id number] Admission Date: 06-08-2018 : 1970 Admission Diagnosis:UNSPECIFIED ABDOMINAL PAIN Attending: CHARO MEDINA Current LOS: 2 Anticipated DC Date: 06-10-2018 Planned Disposition: Home Primary Insurance: [facility] MEDIC[facility] SOLUTIONS Discharge Planning Comments: CM MET WITH PT AND SPOUSE IN ROOM TO DISCUSS DISCHARGE PLANNING AND NEEDS. SAMPSON SALGADO provided verbal consent to discuss current and ongoing needs with/in the presence of: SPOUSE, BRENDA. PT REPORTS LIVING AT HOME INDEPENDENTLY WITH HER SPOUSE 2 DAYS PER WEEK AND THE OTHER DAYS, HER FRIEND STAYS WITH HER AT HOME. PT HAS A WALKER THAT SHE REPORTS NOT USING MUCH SHE SHOULD. PT HAS NO MEDICAL EQUIPMENT PROVIDER PREFERNECE. PT HAS NO OUTSIDE SERVICES ASSISTING IN THE HOME. PT DENIES DISCHARGE NEEDS, STATES THAT SHE CAME HERE FOR PAIN CONTROL, POINTED TO WHITE BOARD THAT HAD PAIN CONTROL WRITTEN ON IT. PT STATES SHE HAS NOT HAD PAIN CONTROL THIS VISIT AND IS IN PAIN NOW. CM POINTED OUT THE HOUSE SUPERVISORS PHONE CONTACT NUMBER AND DISCUSSED PT'S RIGHT TO COMPLAIN REGARDING HER CARE IN THE HOSPITAL. CM PROVIDED AND DISCUSSED IMPORTANT MESSAGE FROM MEDICARE PROVIDED AND EXPLAINED. PT'S SPOUSE TO TRANPORT HOME AT DISCHARGE. WIND TUNNEL MECHANIC NURSE NOTIFIED. Air Chipper: Darrell Nash DCPIA - Discharge Planning Initial Assessment Updated by [email or web address]: Darrell Nash on 06/10/18 4:50 pm * Is the patient Alert and Oriented? Yes * How many steps to enter\exit or inside your home? 2--I * PCP DR. MEDINA * Pharmacy [facility] * Preadmission Environment Home with Family * ADLs Independent * Equipment Walker * Other Equipment PT REPORTS NOT USING WALKER MUCH SHE SHOULD NO MEDICAL EQUIPMENT PROVIDER PREFERENCE. * List name and contact numbers for known caregivers / representatives who currently or will assist patient after discharge: BRENDA SALGADO, SPOUSE, CHRIS WALDRON, MOTHER, * Verbal permission to speak to the caregivers and representatives has been obtained from the patient. Yes * Community resources currently utilized None * Please name any agencies selected above. NONE * Additional services required to return to the preadmission environment? No * Can the patient safely return to the preadmission environment? Yes * Has this patient been hospitalized within the prior 30 days at any hospital? Yes Patient Name: NAOMISAMPSON Page [id number] at 1657 All edits/amendments must be made on the electronic document DICTATION DATE: 06/10/181656 DIRECTORY CARRIER: SHANTI 06/10/181656 RPT#: [id number] DC DATE: STATUS: [facility]M [facility] [address] [place] [address] END OF REPORT
--- NOTE | 2018-06-10 17:00 | NUR ---
DC GIVEN TO PT
--- NOTE | 2018-06-10 17:02 | NUR ---
DC HOME PER PERSONAL CAR
[2018-06-13 11:10] LABS: OVA + PARASITE EXAM Final report (())
--- NOTE | 2018-06-13 13:02 | EC ---
PATIENT:SAMPSON SALGADO DATE OF SERVICE: 06/08/18 SEX: F MEDICAL RECORD: [id number] DATE OF : 70 LOCATION:D.M2 D.212 AGE OF PATIENT: 47 ADMISSION DATE: 06/08/18 REFERRING PHYSICIAN: INTERPRETING PHYSICIAN: AUSTEN ARELLANO MD ECHOCARDIOGRAM REPORT ECHO CHARGES 4 ECHO COMPLETE Date: 06/09/18 CLINICAL DIAGNOSIS: SOB/EDEMA ECHOCARDIOGRAPHIC MEASUREMENTS (adult normal given) AC root (d.<3.7cm) 3.3 cm LV Septum d (<1.2 cm> 1.2 cm Valve Excursion 1.6 cm LV Septum (systole) 1.5 cm Left Atria (s.<4.0cm> 3.0 cm LVPW d(<1.2cm) 1.3 cm RV (d.<2.3cm) 3.0 cm LVPW (sytole) 1.7 cm LV diastole(<5.6CM) 3.3 cm MV E-F(>70mm/sec) cm LV systole 1.5 cm LVOT Diameter 1.6 cm MV exc.(>10mm) 1.4 cm Est.ejection fraction (50-75%) % DOPPLER: LVIT cm/sec A 72.0 cm/sec E 60.0 cm/sec LA cm/sec RVSP 19 mmHg LVOT 95 cm/sec AOP1/2T m/s Asc. Ao 144 cm/sec RVOT 108 cm/sec RA cm/sec PA 124 cm/sec AV Gradient Peak 8.29 mmHg AV Mean 4.29 mmHg AV Area 1.5 cm MV Gradient Peak 2.59 mmHg MV Mean 1.51 mmHg MV Area cm COMMENTS: Internal Medicine Doctor: 2 LAMAR DONOHUE Patient Service Coordinator: 3 Dr. Duffy TAPE# PACS Pericardial Effusion N DATE OF SERVICE: Adequate 2D, color flow, spectral Doppler, and M-Mode. No LVH. LV internal dimensions are normal. Wall motion is normal. EF is greater than or equal to 55%. Aortic valve is tricuspid. No evidence of stenosis on Doppler interrogation. Left atrium is normal at 3.0 cm. Mitral valve shows no prolapse. Trace MR. Right-sided chambers grossly normal. Trace TR. TRANSINT:[id number] Voice Confirmation ID: [id number] DOCUMENT ID: [id number] ECHOCARDIOGRAM REPORT [id number] NAOMI,SAMPSON ARELLANO,AUSTEN Hoover MD at 1302 CC: [id number] DICTATION DATE: 06/10/18828 FIRE SPRINKLER INSTALLER: 06/10/18 105 DIS IN 06/10/18 [facility] [address] [place] [id number]
[2018-06-13 15:10] LABS: ANA REFLEX - DIRECT Negative (Negative)
== END 2018-06-10 17:02 | disposition home or self-care (01) | DRG 392 ==
LOC: D.SDCHOLD 12:15 → D.M2 12:15
PROVIDERS: Family Medicine Adult Medicine; Internal Medicine Gastroenterology; ADMIT Family Medicine; ATTEND Family Medicine
DX: K58.0 Irritable bowel syndrome with diarrhea (principal); F31.30 Bipolar disorder, current episode depressed, mild or moderate severity, unspecified; R60.0 Localized edema; M06.9 Rheumatoid arthritis, unspecified; M79.7 Fibromyalgia; K76.0 Fatty (change of) liver, not elsewhere classified; N32.89 Other specified disorders of bladder; Z87.891 Personal history of nicotine dependence

== ENCOUNTER 2018-07-04 18:39 | Emergency (ER) | payer MEDICARE, MEDICAID ==
[~2018-07-04] VITALS: Ht 157.5 cm; Wt 71.4 kg
[~2018-07-04 18:39] MED LIST changes: +MINIPRESS 5 MG C5 MG PO; +REMERON15 MG PO
[2018-07-04 18:58] VITALS: Ht 157.5 cm; Wt 71.4 kg
[2018-07-04 19:19] LABS: BASOPHILS 0.5 % (0-2); EOSINOPHILS 2.2 % (0-7); HEMATOCRIT 32.8 % (36.0-48.0); HEMOGLOBIN 10.9 g/dL (12-16); IMMATURE GRANULOCYTES 0.2 % (0-5); LYMPHOCYTES 30.4 % (15-50); MCH 30.7 pg (26.0-34.0); MCHC 33.2 g/dL (31.0-37.0); MCV 92.4 fL (80.0-100.0); MEAN PLATELET VOLUME 9.1 fL (7.4-10.4); MONOCYTES 10.3 % (2-11); NEUTROPHILS 56.4 % (40-80); RBC 3.55 10x6/uL (4.00-5.40); WBC 8.7 10x3/uL (4.8-10.8)
--- NOTE | 2018-07-04 19:22 | NUR ---
PT IS A LOW RISK FOR SUICIDE AND RESOURCES GIVEN FOR HELP AFTER DISCHARGE. PT HAD A THOUGHT OF SUCIDE 20 YEARS BUT NO THOUGHTS SINCE AND ONLY 1 TIME. NO ATTEMPTS. CHARGE NURSE AND ATTENDING NOTIFIED.
[2018-07-04 19:41] LABS: PLATELET COUNT 335 10x3/uL (130-400)
[2018-07-04 19:42] LABS: ALBUMIN 3.4 g/dL (3.4-5.0); ALKALINE PHOSPHATASE 103 U/L (46-116); ALT (SGPT) 20 U/L (10-68); BILIRUBIN - TOTAL 0.26 mg/dL (0.2-1.3); CALC OSMOLALITY 284 mosm/kg (275-300); CALCIUM 8.5 mg/dL (8.5-10.1); CARBON DIOXIDE 28.1 mmol/L (21.0-32.0); CHLORIDE - SERUM 101 mmol/L (98-107); CREATININE - SERUM 1.1 mg/dL (0.6-1.3); GLUCOSE 99 mg/dL (74-106); POTASSIUM - SERUM 3.5 mmol/L (3.5-5.1); PROTEIN - SERUM 6.6 g/dL (6.4-8.2); SODIUM 139 mmol/L (136-145); UREA NITROGEN 31 mg/dL (7-18); eGFR NON AFRICAN AMERICAN 56 mL/min (90-120)
[2018-07-04 19:47] LABS: AMYLASE - SERUM 56 U/L (25-115); LIPASE 143 U/L (73-393)
[2018-07-04 19:49] LABS: TROPONIN-I < 0.017 ng/mL (0.000-0.060)
[2018-07-04 20:08] LABS: APPEARANCE CLEAR (CLEAR); BILIRUBIN NEGATIVE (NEGATIVE); COLOR YELLOW (YELLOW); GLUCOSE NEGATIVE (NEGATIVE); KETONE NEGATIVE (NEGATIVE); NITRITE NEGATIVE (NEGATIVE); PROTEIN NEGATIVE (NEGATIVE); SPECIFIC GRAVITY 1.015 (1.005-1.020); UROBILINOGEN NORMAL (NORMAL)
[2018-07-04 20:09] LABS: HCG URINE NEGATIVE (NEGATIVE)
[2018-07-04 21:18] VITALS: BP 118/79
== END 2018-07-04 21:18 | disposition home or self-care (01) ==
LOC: D.ER 18:39
PROVIDERS: Family Medicine
DX: R60.9 Edema, unspecified (principal); R10.9 Unspecified abdominal pain

== ENCOUNTER → 2018-07-29 09:54 | Outpatient (CLI) | payer MEDICARE, MEDICAID ==
[2018-07-04 18:58] VITALS: BMI 28.8
== END | disposition home or self-care (01) ==
LOC: D.CT 09:54
PROVIDERS: ATTEND Family Medicine
DX: R10.11 Right upper quadrant pain (principal); R10.31 Right lower quadrant pain

== ENCOUNTER 2018-08-15 16:33 | Emergency (ER) | payer MEDICARE, MEDICAID ==
[~2018-08-15] VITALS: Ht 157.5 cm; Wt 73.5 kg
[2018-08-15 16:38] VITALS: Ht 157.5 cm; Wt 73.5 kg
[2018-08-15] MEDS ORDERED: KLOR-CON 1010 MEQ PO (16:44)
[2018-08-15] MEDS ORDERED: LASIX40 MG PO (16:45)
[2018-08-15 17:20] LABS: BASOPHILS 0.1 % (0-2); EOSINOPHILS 0.2 % (0-7); HEMATOCRIT 40.4 % (36.0-48.0); HEMOGLOBIN 13.9 g/dL (12-16); IMMATURE GRANULOCYTES 0.7 % (0-5); LYMPHOCYTES 12.3 % (15-50); MCH 32.7 pg (26.0-34.0); MCHC 34.4 g/dL (31.0-37.0); MCV 95.1 fL (80.0-100.0); MEAN PLATELET VOLUME 9.2 fL (7.4-10.4); MONOCYTES 6.7 % (2-11); PLATELET COUNT 328 10x3/uL (130-400); RBC 4.25 10x6/uL (4.00-5.40); RDW 14.7 % (11.5-14.5); WBC 13.2 10x3/uL (4.8-10.8)
[2018-08-15 17:35] LABS: APTT 20.8 SECONDS (22.8-39.4); INR 0.88 (0.85-1.17); PROTIME 11.5 SECONDS (11.6-15.0)
[2018-08-15 18:01] LABS: ALBUMIN 4.1 g/dL (3.4-5.0); ALKALINE PHOSPHATASE 97 U/L (46-116); ALT (SGPT) 48 U/L (10-68); CALC OSMOLALITY 289 mosm/kg (275-300); CALCIUM 9.7 mg/dL (8.5-10.1); CARBON DIOXIDE 26.7 mmol/L (21.0-32.0); CHLORIDE - SERUM 103 mmol/L (98-107); CREATININE - SERUM 1.1 mg/dL (0.6-1.3); GLUCOSE 121 mg/dL (74-106); POTASSIUM - SERUM 3.7 mmol/L (3.5-5.1); PROTEIN - SERUM 7.3 g/dL (6.4-8.2); SODIUM 142 mmol/L (136-145); UREA NITROGEN 30 mg/dL (7-18); eGFR NON AFRICAN AMERICAN 56 mL/min (90-120)
[2018-08-15 18:11] LABS: CREATINE KINASE 143 UL (21-215); LIPASE 225 U/L (73-393); MAGNESIUM - SERUM 2.1 mg/dL (1.8-2.4); PRO BNP 135 pg/mL (0-125); THYROID STIMULATING HORMONE 0.16 uIU/mL (0.36-3.74); TROPONIN-I < 0.017 ng/mL (0.000-0.060)
[2018-08-15 19:16] LABS: APPEARANCE CLEAR (CLEAR); BILIRUBIN NEGATIVE (NEGATIVE); COLOR YELLOW (YELLOW); GLUCOSE NEGATIVE (NEGATIVE); KETONE NEGATIVE (NEGATIVE); NITRITE NEGATIVE (NEGATIVE); PROTEIN NEGATIVE (NEGATIVE); SPECIFIC GRAVITY 1.015 (1.005-1.020); UROBILINOGEN NORMAL (NORMAL)
[2018-08-15] MEDS ORDERED: LEVAQUIN750 MG PO (19:49)
[2018-08-15 19:53] LABS: UDS - AMPHET NEGATIVE QUAL (NEGATIVE); UDS - BARB NEGATIVE QUAL (NEGATIVE); UDS - BENZO POSITIVE QUAL (NEGATIVE); UDS - COCAINE NEGATIVE QUAL (NEGATIVE); UDS - OPIATE NEGATIVE QUAL (NEGATIVE); UDS - PCP NEGATIVE QUAL (NEGATIVE); UDS - THC NEGATIVE QUAL (NEGATIVE)
[2018-08-15 19:57] VITALS: BP 134/88
== END 2018-08-15 19:57 | disposition home or self-care (01) ==
LOC: D.ER 16:33
PROVIDERS: Family Medicine
DX: R63.5 Abnormal weight gain (principal); R22.9 Localized swelling, mass and lump, unspecified; E07.89 Other specified disorders of thyroid; K08.89 Other specified disorders of teeth and supporting structures; R06.02 Shortness of breath; J01.90 Acute sinusitis, unspecified

== ENCOUNTER → 2018-10-13 12:24 | Outpatient (CLI) | payer MEDICARE, MEDICAID ==
[2018-08-15 16:38] VITALS: BMI 28.8
[~2018-10-13 12:24] MED LIST changes: +KLOR-CON 1010 MEQ PO; +LASIX40 MG PO; +LEVAQUIN750 MG PO
== END | disposition home or self-care (01) ==
LOC: D.MRI 08-04 10:00
PROVIDERS: ATTEND Family Medicine
DX: M62.81 Muscle weakness (generalized) (principal)

== ENCOUNTER → 2019-02-22 07:39 | Outpatient (CLI) | payer MEDICARE, MEDICAID ==
[2018-08-15 16:38] VITALS: BMI 28.8
== END | disposition home or self-care (01) ==
LOC: D.HCCARDIO 07:39
PROVIDERS: ATTEND Internal Medicine Cardiovascular Disease
DX: I20.9 Angina pectoris, unspecified (principal)

== ENCOUNTER → 2019-03-02 14:35 | Outpatient (CLI) | payer MEDICARE, MEDICAID ==
[2018-08-15 16:38] VITALS: BMI 28.8
== END | disposition home or self-care (01) ==
LOC: D.RT 14:35
PROVIDERS: ATTEND Internal Medicine Pulmonary Disease
DX: J44.9 Chronic obstructive pulmonary disease, unspecified (principal); J84.10 Pulmonary fibrosis, unspecified

== ENCOUNTER 2019-03-30 17:48 | Inpatient (IN) | payer MEDICARE, MEDICAID ==
[~2019-03-30] VITALS: Ht 157.5 cm; Wt 75.0 kg
[~2019-03-30 17:48] MED LIST changes: +TRELEGY ELLIPT1 EACH INH
--- NOTE | 2019-03-30 18:50 | NUR ---
PT SITTING UP IN BED. ALERT AWAKE AND ORIENTED x4. NO SIGNS OR SYMPTOMS OF DISTRESS NOTED. RESPIRATIONS EVEN AND UNLABORED. CHIARA MENDOZA APRN AT BEDSIDE. CALL LIGHT WITHI N REACH AND BED IS IN LOWEST POSITION. WILL CONTINUE TO MONITOR.
[2019-03-30] MEDS ORDERED: PERCOCET 10-321 EAC1 PO (19:21)
--- NOTE | 2019-03-30 19:22 | NUR ---
PATIENT ARRIVED HERE FROM DR OFFICE. SHE IS ALERT AND ORIENTED. SHE HAS SOB, WHEEZING, AND NON PRODUCTIVE COUGH.
[2019-03-30 19:23] LABS: BASOPHILS 0.3 % (0-2); EOSINOPHILS 1.8 % (0-7); HEMATOCRIT 35.9 % (36.0-48.0); IMMATURE GRANULOCYTES 0.2 % (0-5); MCH 33.4 pg (26.0-34.0); MCHC 33.4 g/dL (31.0-37.0); MONOCYTES 8.4 % (2-11); NEUTROPHILS 45.3 % (40-80); PLATELET COUNT 275 10x3/uL (130-400); RBC 3.59 10x6/uL (4.00-5.40); RDW 13.5 % (11.5-14.5); WBC 6.5 10x3/uL (4.8-10.8)
[2019-03-30 19:47] LABS: ANION GAP 11.3 mmol/L (8-16); CALCIUM 9.1 mg/dL (8.5-10.1); CARBON DIOXIDE 29.6 mmol/L (21.0-32.0); CREATININE - SERUM 1.1 mg/dL (0.6-1.3); POTASSIUM - SERUM 3.9 mmol/L (3.5-5.1)
[2019-03-30 19:52] LABS: ALBUMIN 3.5 g/dL (3.4-5.0); BILIRUBIN - TOTAL 0.18 mg/dL (0.2-1.3); PROTEIN - SERUM 6.5 g/dL (6.4-8.2)
[2019-03-31] VITALS (7 sets, daily range): BP systolic 112–125; BP diastolic 65–88; Ht 157.5 cm; Wt 75.0 kg
--- NOTE | 2019-03-31 04:29 | NUR ---
PT LYING IN BED AWAKE ALERT AND ORIENTED x4. NO SIGNS OR SYMPTOMS OF DISTRESS NOTED. RESPIRATIONS EVEN AND UNLABORED. PT COMPLAINS OF PAIN. EMILY JENSEN APRN NOTIFIED. PERCOSET 10-325 BID PRN ORDERED. PT ENCOURAGED TO CALL FOR HELP WHEN NEEDED. CALL LIGHT WITHI NI REACH AND BED IS IN LOWEST POSITON WILL CONTINUE TO MONITOR
--- NOTE | 2019-03-31 05:24 | NUR ---
P TLYING IN BED RESTING EASILY AWAKEN WITH VOPICE STIMULATION. NO COMPLAINT OF PAIN AT THIS TIME. CALL LIGHT WITH IN REACH AND BED IS IN LOWEST POSITION. NO SIGNS OR SYMPTOMS OF DISTRESS NOTED. WILL CONTINUE TO MONITOR
[2019-03-31 06:05] LABS: BASOPHILS 0.3 % (0-2); EOSINOPHILS 2.1 % (0-7); HEMATOCRIT 35.5 % (36.0-48.0); HEMOGLOBIN 11.5 g/dL (12-16); IMMATURE GRANULOCYTES 0.3 % (0-5); LYMPHOCYTES 36.8 % (15-50); MCH 32.6 pg (26.0-34.0); MCHC 32.4 g/dL (31.0-37.0); MCV 100.6 fL (80.0-100.0); MONOCYTES 10.3 % (2-11); NEUTROPHILS 50.2 % (40-80); PLATELET COUNT 258 10x3/uL (130-400); RBC 3.53 10x6/uL (4.00-5.40); RDW 13.7 % (11.5-14.5); WBC 6.1 10x3/uL (4.8-10.8)
[2019-03-31 06:23] LABS: ALBUMIN 2.9 g/dL (3.4-5.0); ANION GAP 8.9 mmol/L (8-16); BILIRUBIN - TOTAL 0.11 mg/dL (0.2-1.3); CALCIUM 9.3 mg/dL (8.5-10.1); CARBON DIOXIDE 30.7 mmol/L (21.0-32.0); CREATININE - SERUM 1.2 mg/dL (0.6-1.3); POTASSIUM - SERUM 3.6 mmol/L (3.5-5.1); PROTEIN - SERUM 6.2 g/dL (6.4-8.2)
--- NOTE | 2019-03-31 07:10 | NUR ---
REPORT RECEIVED FROM QUALITY CONTROL CHECKER AND PATIENT CARE ASSUMED. PATIENT LAYING IN BED ON BACK AWAKE, ALERT AND ORIENTED X 4. PATIENT DENIES ANY NEEDS OR PAIN. WILL CONTINUE WITH PLAN OF CARE. SR UP X 2 BED IN LOW POSITION AND CALL LIGHT IN REACH.
--- NOTE | 2019-03-31 15:26 | NUR ---
PATIENT IS STABLE AND VSS. PATIENT UP TO SHOWER. COMPLETE LINEN CHANGE COMPLETED. PATIENT DENIES ANY NEEDS OR PAIN. WILL CONTINUE WITH PLAN OF CARE. SR UP X 2 BED IN LOW POSITION AND CALL LIGHT IN REACH.
--- NOTE | 2019-03-31 19:42 | NUR ---
RECEIVED REPORT, WILL ASSUME CARE OF PT, SLEEPING, NO DISTRESS NOTICED AT THIS TIME, BED IS LOW, SRX2, CALL LIGHT IN REACH, WILL CONTINUE PLAN OF CARE
[2019-04-01] VITALS: BP 128/78
[2019-04-01 01:08] LABS: GLUCOSE NEGATIVE (NEGATIVE); KETONE NEGATIVE (NEGATIVE); NITRITE NEGATIVE (NEGATIVE); UROBILINOGEN NORMAL (NORMAL)
[2019-04-01 01:09] LABS: BILIRUBIN NEGATIVE (NEGATIVE)
[2019-04-01 04:00] VITALS: BP 135/94
[2019-04-01 05:37] LABS: BASOPHILS 0.3 % (0-2); EOSINOPHILS 2.2 % (0-7); HEMATOCRIT 37.5 % (36.0-48.0); HEMOGLOBIN 12.3 g/dL (12-16); IMMATURE GRANULOCYTES 0.3 % (0-5); LYMPHOCYTES 29.5 % (15-50); MCH 33.2 pg (26.0-34.0); MCHC 32.8 g/dL (31.0-37.0); MCV 101.1 fL (80.0-100.0); MONOCYTES 12.3 % (2-11); NEUTROPHILS 55.4 % (40-80); PLATELET COUNT 263 10x3/uL (130-400); RBC 3.71 10x6/uL (4.00-5.40); RDW 13.7 % (11.5-14.5)
[2019-04-01 06:03] LABS: ANION GAP 12.2 mmol/L (8-16); CALCIUM 9.2 mg/dL (8.5-10.1); CARBON DIOXIDE 29.5 mmol/L (21.0-32.0); CREATININE - SERUM 1.1 mg/dL (0.6-1.3); MAGNESIUM - SERUM 1.9 mg/dL (1.8-2.4); POTASSIUM - SERUM 3.7 mmol/L (3.5-5.1)
--- NOTE | 2019-04-01 06:51 | NUR ---
I have reviewed this patient and I concur with the Shift Assessment completed by the Licensed Practical Nurse today this shift.
--- NOTE | 2019-04-01 07:10 | NUR ---
REPORT RECEIVED FROM FURNITURE SALESPERSON AND PATIENT CARE ASSUMED.PATIENT LAYING IN BED AWAKE, ALERT AND ORIENTED X 4. PATIENT DENIES ANY NEEDS OR PAIN. WILL CONTINUE TO MONITOR. SR UP X 2 BED IN LOW POSITION AND CALL LIGHT IN REACH.
[2019-04-01 09:52] VITALS: BP 112/80
[2019-04-01 12:00] VITALS: BP 115/80
--- NOTE | 2019-04-01 13:35 | NUR ---
PATIENT STABLE AND UNCHANGED. AT BS. WILL CONTINUE TO MONITOR. SR UP X 2 BED IN LOW POSTION AND CALL LIGHT IN REACH.
[2019-04-01 17:04] VITALS: BP 126/63
--- NOTE | 2019-04-01 19:30 | NUR ---
RECEIVED REPORT, WILL ASSUME CARE OF PT, WALKING IN [place] WITH FAMILY, WILL CONTINUE PLAN OF CARE
[2019-04-01 20:00] VITALS: BP 136/85
[2019-04-02] VITALS: BP 113/66
[2019-04-02 04:00] VITALS: BP 117/86
--- NOTE | 2019-04-02 04:38 | NUR ---
I have reviewed this patient and I concur with the Shift Assessment completed by the Licensed Practical Nurse today this shift.
[2019-04-02 05:25] LABS: BASOPHILS 0.1 % (0-2); EOSINOPHILS 0 % (0-7); HEMATOCRIT 36.4 % (36.0-48.0); HEMOGLOBIN 12.4 g/dL (12-16); IMMATURE GRANULOCYTES 0.5 % (0-5); LYMPHOCYTES 8.8 % (15-50); MCH 33.6 pg (26.0-34.0); MCHC 34.1 g/dL (31.0-37.0); MCV 98.6 fL (80.0-100.0); MEAN PLATELET VOLUME 8.9 fL (7.4-10.4); MONOCYTES 9.2 % (2-11); NEUTROPHILS 81.4 % (40-80); PLATELET COUNT 282 10x3/uL (130-400); RBC 3.69 10x6/uL (4.00-5.40); RDW 13.5 % (11.5-14.5); WBC 13.5 10x3/uL (4.8-10.8)
[2019-04-02 06:05] LABS: CALCIUM 9.4 mg/dL (8.5-10.1); CARBON DIOXIDE 26.8 mmol/L (21.0-32.0); CREATININE - SERUM 0.9 mg/dL (0.6-1.3); POTASSIUM - SERUM 3.8 mmol/L (3.5-5.1)
--- NOTE | 2019-04-02 07:16 | NUR ---
NO TX GIVEN PT IN SHOWER
--- NOTE | 2019-04-02 07:20 | NUR ---
RECIEVE REPORT. ALERT AND ORIENTED X4. UP IN IN SHOWER. DENIES ANY NEEDS. CONTINUE PLAN OF CARE AND SAFETY PRECAUTIONS.
[2019-04-02 08:36] VITALS: BP 131/86
[2019-04-02] MEDS ORDERED: IPRAT-ALBUT 0.5-3 ML UPD (12:16)
[2019-04-02] MEDS ORDERED: LEVOFLOXACIN500 MG PO (12:16)
[2019-04-02] MEDS ORDERED: FLUTICASONE PRO16 GM NASAL (12:18)
[2019-04-02] MEDS ORDERED: SINGULAIR10 MG PO (12:19)
[2019-04-02] MEDS ORDERED: PREDNISONE10 MG PO (12:19)
[2019-04-02] MEDS ORDERED: TESSALON PERLE100 MG PO (12:20)
[2019-04-02] MEDS ORDERED: MUCINEX DM ER1 EAC1 PO (12:21)
--- NOTE | 2019-04-02 13:28 | MORECARE ---
CASE MANAGEMENT DISCHARGE SUMMARY PATIENT: SAMPSON SALGADO UNIT: [id number] ADM DATE: 03/30/19 AGE: 48 : 70 SEX: F [facility]ED: [facility] AUTHOR: CHERYL DOTY PHYSICIAN: REFERRING PHYSICIAN: CHARO MEDINA DO DATE OF SERVICE: 04/02/19 Discharge Plan Patient Name: SAMPSON SALGADO Facility: [facility]:[place] : 1970 Planned Disposition: Home Anticipated Discharge Date: Discharge Date: Expected LOS: Initial Reviewer: [id number] Initial Review Date: 04/02/2019 Generated: 04/02/19 2:27 pm Patient Name: SAMPSON SALGADO Page 19628 at 1328 All edits/amendments must be made on the electronic document DICTATION DATE: 04/02/19 1327 ELECTRICAL MACHINIST: SHANTI 04/02/19 1327 RPT#: [id number] DC DATE: STATUS: ADM IN [facility] [address] [place] [address] END OF REPORT
--- NOTE | 2019-04-02 13:35 | MORECARE ---
CASE MANAGEMENT DISCHARGE SUMMARY PATIENT: SAMPSON SALGADO UNIT: [id number] ADM DATE: 03/30/19 AGE: 48 : 70 SEX: F ROOM/BED: D.[facility] AUTHOR: CHERYL DOTY PHYSICIAN: REFERRING PHYSICIAN: CHARO MEDINA DO DATE OF SERVICE: 04/02/19 Discharge Plan Patient Name: SAMPSON SALGADO Facility: [facility]:[place] : 1970 Planned Disposition: Home Anticipated Discharge Date: Discharge Date: Expected LOS: Initial Reviewer: [id number] Initial Review Date: 04/02/2019 Generated: 04/02/19 2:35 pm Comments DCP- Discharge Planning Updated by [email or web address]: Erlinda Bailey on 04/02/19 12:[address] Patient Name: SAMPSON SALGADO Admission Status: Elective Accout number: [id number] Admission Date: 03-30-2019 : 1970 Admission Diagnosis: Attending: CHARO MEDINA Current LOS: 3 Anticipated DC Date: Planned Disposition: Home Primary Insurance: [facility] MEDICARE SOLUTIONS Discharge Planning Comments: CM MET WITH PATIENT TO DISCUSS DC PLANNING/NEEDS AFTER OBTAINING VERBAL CONSENT. PLANS TO DC TO HOME TODAY. NEEDS NEBULIZER. WALK TEST DONE AND DOES NOT QUALIFY FOR FOR [facility]. [facility] CONTACTED, WAITING FOR CALL BACK. IMM SIGNED. CM TO FOLLOW AND ASSIST NEEDED. Population Health Manager: Erlinda Bailey External Providers [facility] Next Contact Date: Service Request Date: Service Type: Resolution: Reviewer: Comments: Coverage Notice Reviewer: [id number] Bill Bailey Notice Issued Date-Time: 04/02/2019 13:28 Notice Type: Patient Choice Letter Notice Delivered To: Relationship to Patient: Internal Combustion Engineer Name: Delivery Method: HAND - Hand Delivered Rimma Days: Prior Verbal Notification: Recipient Understood Notice: Yes Recipient Signature: Yes Med Rec Note Co-signed by Attending: Coverage Notice Comment: HAI Reviewer: [id number] Bill Bailey Notice Issued Date-Time: 04/02/2019 13:28 Notice Type: IM Discharge Notice Notice Delivered To: Relationship to Patient: Internal Combustion Engineer Name: Delivery Method: HAND - Hand Delivered Rimma Days: Prior Verbal Notification: Recipient Understood Notice: Yes Recipient Signature: Yes Med Rec Note Co-signed by Attending: Coverage Notice Comment: Last DP export: 04/02/19 12:28 p Patient Name: SAMPSON SALGADO Page 85042 at 1335 All edits/amendments must be made on the electronic document DICTATION DATE: 04/02/191334 QUALITY AND RELIABILITY ENGINEER: SHANTI 04/02/19 1335 RPT#: [id number] DC DATE: STATUS: ADM IN [facility] [address] [place] [address] END OF REPORT
--- NOTE | 2019-04-02 13:42 | MORECARE ---
CASE MANAGEMENT DISCHARGE SUMMARY PATIENT: SAMPSON SALGADO UNIT: [id number] ADM DATE: 03/30/19 AGE: 48 : 70 SEX: F ROOM/BED: D.[facility] AUTHOR: CHERYL DOTY PHYSICIAN: REFERRING PHYSICIAN: CHARO MEDINA DO DATE OF SERVICE: 04/02/19 Discharge Plan Patient Name: SAMPSON SALGADO Facility: [facility]:[place] : 1970 Planned Disposition: Home Anticipated Discharge Date: Discharge Date: Expected LOS: Initial Reviewer: [id number] Initial Review Date: 04/02/2019 Generated: 04/02/19 2:42 pm Comments DCP- Discharge Planning Updated by [email or web address]: Erlinda Bailey on 04/02/19 12:[address] Patient Name: SAMPSON SALGADO Admission Status: Elective Accout number: [id number] Admission Date: 03-30-2019 : 1970 Admission Diagnosis: Attending: CHARO MEDINA Current LOS: 3 Anticipated DC Date: Planned Disposition: Home Primary Insurance: [facility] MEDICARE SOLUTIONS Discharge Planning Comments: CM MET WITH PATIENT TO DISCUSS DC PLANNING/NEEDS AFTER OBTAINING VERBAL CONSENT. PLANS TO DC TO HOME TODAY. NEEDS NEBULIZER. WALK TEST DONE AND DOES NOT QUALIFY FOR FOR [facility]. [facility] CONTACTED, WAITING FOR CALL BACK. IMM SIGNED. CM TO FOLLOW AND ASSIST NEEDED. Cobbler Apprentice: Erlinda Bailey Appended by Erlinda Bailey on 04/02/2019 13:37 LOCKER ATTENDANT: OSIRIS WITH [facility] CALLED AND THEY WILL DELIVER HER NEBULIZER TO HER HOUSE. Coverage Notice Reviewer: [id number] Bill Bailey Notice Issued Date-Time: 04/02/2019 13:28 Notice Type: Patient Choice Letter Notice Delivered To: Relationship to Patient: Seismic Engineer Name: Delivery Method: HAND - Hand Delivered Rimma Days: Prior Verbal Notification: Recipient Understood Notice: Yes Recipient Signature: Yes Med Rec Note Co-signed by Attending: Coverage Notice Comment: HAI Reviewer: [id number] Bill Bailey Notice Issued Date-Time: 04/02/2019 13:28 Notice Type: IM Discharge Notice Notice Delivered To: Relationship to Patient: Seismic Engineer Name: Delivery Method: HAND - Hand Delivered Rimma Days: Prior Verbal Notification: Recipient Understood Notice: Yes Recipient Signature: Yes Med Rec Note Co-signed by Attending: Coverage Notice Comment: Last DP export: 04/02/19 12:35 p Patient Name: SAMPSON SALGADO Page 98789 at 1342 All edits/amendments must be made on the electronic document DICTATION DATE: 04/02/19 1342 CLOTH SHEARING SUPERVISOR: SHANTI 04/02/19 1342 RPT#: [id number] DC DATE: STATUS: ADM IN [facility] [address] [place] [address] END OF REPORT
--- NOTE | 2019-04-02 14:41 | NUR ---
ALERT AND ORIENTED X4. DC RT FA IV TIP INTACT. DISCHARGE INSTRUCTIONS GIVEN VERBALLY AND WRITTEN. DISCHARGE PAPERS SIGNED ON CHART. ESCORT TO RIDE VIA WHEELCHAIR. REMAINS FREE FROM INJURY.
--- NOTE | 2019-04-03 09:56 | MORECARE ---
CASE MANAGEMENT DISCHARGE SUMMARY PATIENT: SAMPSON SALGADO UNIT: [id number] ADM DATE: 03/30/19 AGE: 48 : 70 SEX: F ROOM/BED: D.[facility] AUTHOR: CHERYL DOTY PHYSICIAN: REFERRING PHYSICIAN: CHARO MEDINA DO DATE OF SERVICE: 04/03/19 Discharge Plan Patient Name: SAMPSON SALGADO Facility: [facility]:[place] : 1970 Planned Disposition: Home Anticipated Discharge Date: 04/02/19 Discharge Date: 04/02/2019 Expected LOS: 3 Initial Reviewer: [id number] Initial Review Date: 04/02/2019 Generated: 04/03/19 10:56 am Comments DCP- Discharge Planning Updated by [email or web address]: Erlinda Bailey on 04/02/19 12:[address] Patient Name: SAMPSON SALGADO Admission Status: Elective Accout number: [id number] Admission Date: 03-30-2019 : 1970 Admission Diagnosis: Attending: CHARO MEDINA Current LOS: 3 Anticipated DC Date: Planned Disposition: Home Primary Insurance: [facility] MEDICARE SOLUTIONS Discharge Planning Comments: CM MET WITH PATIENT TO DISCUSS DC PLANNING/NEEDS AFTER OBTAINING VERBAL CONSENT. PLANS TO DC TO HOME TODAY. NEEDS NEBULIZER. WALK TEST DONE AND DOES NOT QUALIFY FOR FOR [facility]. [facility] CONTACTED, WAITING FOR CALL BACK. IMM SIGNED. CM TO FOLLOW AND ASSIST NEEDED. Open Hearth Melter: Erlinda Bailey Appended by Erlinda Bailey on 04/02/2019 13:37 HAT BODY SORTER: OSIRIS WITH [facility] CALLED AND THEY WILL DELIVER HER NEBULIZER TO HER HOUSE. Coverage Notice Reviewer: [id number] Bill Bailey Notice Issued Date-Time: 04/02/2019 13:28 Notice Type: Patient Choice Letter Notice Delivered To: Relationship to Patient: Flight Attendant Inflight Services Name: Delivery Method: HAND - Hand Delivered Rimma Days: Prior Verbal Notification: Recipient Understood Notice: Yes Recipient Signature: Yes Med Rec Note Co-signed by Attending: Coverage Notice Comment: HAI Reviewer: [id number] Bill Bailey Notice Issued Date-Time: 04/02/2019 13:28 Notice Type: IM Discharge Notice Notice Delivered To: Relationship to Patient: Flight Attendant Inflight Services Name: Delivery Method: HAND - Hand Delivered Rimma Days: Prior Verbal Notification: Recipient Understood Notice: Yes Recipient Signature: Yes Med Rec Note Co-signed by Attending: Coverage Notice Comment: Last DP export: 04/02/19 12:42 p Patient Name: SAMPSON SALGADO Page 22447 at 0956 All edits/amendments must be made on the electronic document DICTATION DATE: 04/03/19955 METEOROLOGIST IN CHARGE: SHANTI 04/03/1956 RPT#: [id number] DC DATE:04/02/19 STATUS: DIS IN [facility] [address] [place] [address] END OF REPORT
--- NOTE | 2019-04-03 10:04 | MORECARE ---
CASE MANAGEMENT DISCHARGE SUMMARY PATIENT: SAMPSON SALGADO UNIT: [id number] ADM DATE: 03/30/19 AGE: 48 : 70 SEX: F ROOM/BED: D.[facility] AUTHOR: CHERYL DOTY PHYSICIAN: REFERRING PHYSICIAN: CHARO MEDINA DO DATE OF SERVICE: 04/03/19 Discharge Plan Patient Name: SAMPSON SALGADO Facility: [facility]:[place] : 1970 Planned Disposition: Home Anticipated Discharge Date: 04/02/19 Discharge Date: 04/02/2019 Expected LOS: 3 Initial Reviewer: [email or web address] Initial Review Date: 04/02/2019 Generated: 04/03/19 11:04 am Comments DCP- Discharge Planning Updated by [id number]: Erlinda Bailey on 04/02/19 12:[address] Patient Name: SAMPSON SALGADO Admission Status: Elective Accout number: [id number] Admission Date: 03-30-2019 : 1970 Admission Diagnosis: Attending: CHARO MEDINA Current LOS: 3 Anticipated DC Date: Planned Disposition: Home Primary Insurance: [facility] MEDICARE SOLUTIONS Discharge Planning Comments: CM MET WITH PATIENT TO DISCUSS DC PLANNING/NEEDS AFTER OBTAINING VERBAL CONSENT. PLANS TO DC TO HOME TODAY. NEEDS NEBULIZER. WALK TEST DONE AND DOES NOT QUALIFY FOR FOR [facility]. [facility]I CONTACTED, WAITING FOR CALL BACK. IMM SIGNED. CM TO FOLLOW AND ASSIST NEEDED. Inspection Supervisor: Erlinda Bailey Appended by Erlinda Bailey on 04/02/2019 13:37 UNDERWATER TRAPPER: OSIRIS WITH [facility] CALLED AND THEY WILL DELIVER HER NEBULIZER TO HER HOUSE. Coverage Notice Reviewer: [id number] Bill Bailey Notice Issued Date-Time: 04/02/2019 13:28 Notice Type: Patient Choice Letter Notice Delivered To: Relationship to Patient: Dairy Associate Name: Delivery Method: HAND - Hand Delivered Rimma Days: Prior Verbal Notification: Recipient Understood Notice: Yes Recipient Signature: Yes Med Rec Note Co-signed by Attending: Coverage Notice Comment: HAI Reviewer: [id number] Bill Bailey Notice Issued Date-Time: 04/02/2019 13:28 Notice Type: IM Discharge Notice Notice Delivered To: Relationship to Patient: Dairy Associate Name: Delivery Method: HAND - Hand Delivered Rimma Days: Prior Verbal Notification: Recipient Understood Notice: Yes Recipient Signature: Yes Med Rec Note Co-signed by Attending: Coverage Notice Comment: Last DP export: 04/02/19 12:42 p Patient Name: SAMPSON SALGADO Page 38914 at 1004 All edits/amendments must be made on the electronic document DICTATION DATE: 04/03/19 1004 PAD MACHINE FEEDER: SHANTI 04/03/19 1004 RPT#: [id number] DC DATE:04/02/19 STATUS: DIS IN [facility] [address] [place] [address] END OF REPORT
[2019-04-04 12:09] LABS: IMMUNOGLOBULIN A 206 mg/dL (87-352); IMMUNOGLOBULIN G 597 mg/dL (700-1600)
[2019-04-06 06:09] LABS: IGG SUBCLASS 1 328 mg/dL (248-810); IGG SUBCLASS 2 162 mg/dL (130-555); IGG SUBCLASS 3 50 mg/dL (15-102); IGG SUBCLASS 4 39 mg/dL (2-96); IGGS - IGG SERUM 601 mg/dL (700-1600)
[2019-04-06 10:10] LABS: IMMUNOGLOBULIN E 65 IU/mL (6-495)
== END 2019-04-02 15:14 | disposition home or self-care (01) | DRG 193 ==
LOC: D.M2 17:48
PROVIDERS: Internal Medicine Pulmonary Disease; ADMIT Family Medicine; ATTEND Family Medicine
DX: J18.9 Pneumonia, unspecified organism (principal); J96.01 Acute respiratory failure with hypoxia; F17.213 Nicotine dependence, cigarettes, with withdrawal; M06.9 Rheumatoid arthritis, unspecified; K21.9 Gastro-esophageal reflux disease without esophagitis; F41.8 Other specified anxiety disorders; F31.9 Bipolar disorder, unspecified; K58.9 Irritable bowel syndrome, unspecified; J20.9 Acute bronchitis, unspecified; D50.9 Iron deficiency anemia, unspecified

== ENCOUNTER 2019-04-22 08:17 | Inpatient (IN) | payer MEDICARE, MEDICAID ==
[~2019-04-22] VITALS: Ht 157.5 cm; Wt 71.9 kg
[~2019-04-22 08:17] MED LIST changes: +FLUTICASONE PRO16 GM NASAL; +IPRAT-ALBUT 0.5-3 ML UPD; +LEVOFLOXACIN500 MG PO; +MUCINEX DM ER1 EAC1 PO; +PERCOCET 10-321 EAC1 PO; +PREDNISONE10 MG PO; +TESSALON PERLE100 MG PO
[2019-04-22 08:49] LABS: BASOPHILS 0.1 % (0-2); EOSINOPHILS 1.9 % (0-7); HEMATOCRIT 40.4 % (36.0-48.0); HEMOGLOBIN 13.8 g/dL (12-16); IMMATURE GRANULOCYTES 0.2 % (0-5); LYMPHOCYTES 20.8 % (15-50); MCH 33.2 pg (26.0-34.0); MCHC 34.2 g/dL (31.0-37.0); MCV 97.1 fL (80.0-100.0); MONOCYTES 12.8 % (2-11); NEUTROPHILS 64.2 % (40-80); PLATELET COUNT 298 10x3/uL (130-400); RBC 4.16 10x6/uL (4.00-5.40); RDW 13.5 % (11.5-14.5); WBC 8.3 10x3/uL (4.8-10.8)
--- NOTE | 2019-04-22 08:50 | NUR ---
PATIENT IN WITH C/O SOB, STATES SHE WOKE UP WITH SOB, WAS DIAGNOSED WITH PNEUMONA LAST WEEK. PATIENT IS WITHOUT DISTRESS AT TIS TIME, SPOUSE AT BEDSIDE.
[2019-04-22 08:54] VITALS: BP 137/90
[2019-04-22 08:54] LABS: CALC OSMOLALITY 281 mosm/kg (275-300); CALCIUM 11.3 mg/dL (8.5-10.1); CARBON DIOXIDE 25.2 mmol/L (21.0-32.0); CHLORIDE - SERUM 103 mmol/L (98-107); CREATININE - SERUM 1.1 mg/dL (0.6-1.3); GLUCOSE 108 mg/dL (74-106); POTASSIUM - SERUM 3.8 mmol/L (3.5-5.1); SODIUM 139 mmol/L (136-145); UREA NITROGEN 22 mg/dL (7-18); eGFR NON AFRICAN AMERICAN 56 mL/min (90-120)
[2019-04-22 08:57] LABS: APTT 26.6 SECONDS (22.8-39.4); INR 0.89 (0.85-1.17)
[2019-04-22 09:11] LABS: ALBUMIN 3.6 g/dL (3.4-5.0); ALKALINE PHOSPHATASE 89 U/L (30-120); ALT (SGPT) 34 U/L (10-68); CKMB 4.5 U/L (0.0-3.6); CREATINE KINASE 149 UL (21-215); PRO BNP 175 pg/mL (0-125); PROTEIN - SERUM 7.2 g/dL (6.4-8.2)
[2019-04-22 09:13] LABS: TROPONIN-I < 0.017 ng/mL (0.000-0.060)
[2019-04-22 11:50] VITALS: BP 136/92
--- NOTE | 2019-04-22 12:05 | NUR ---
PT ARRIVES TO ROOM VIA WHEELCHAIR ESCORTED BY ER STAFF. PT IS AAO X 4. SPOUSE IS AT BEDSIDE. INCENTIVE SPIROMETER AT BEDSIDE AND EDUCATION GIVEN PERTAINING TO USE AND IMPORTANCE OF USE. PT VERBALIZES UNDERSTANDING AND STATES "ROMA USED ONE OF THOSE MANY TIMES". NON SKID FOOTWEAR AVAILABLE FOR PT IF PT WOULD LIKE. PT IS REFUSING REDE ALARM. SEE NURSE NOTE. RESPIRATIONS ARE EVEN AND UNLABORED. PT DENIES PRESENCE OF N/V. PT STATES "MY MAIN CONCERN RIGHT NOW IS THAT THEY GET ME MY MEDICINES THAT I HAVE TO HAVE EVERY DAY." PT REPORTS A HX OF BIPOLAR/DEPRESSION/PTSD. PT REPORTS THAT SHE HAS ATTEMPTED SUICIDE "3 YEARS AGO" AND DENIES ANY CURRENT FEELINGS OF SUICIDE. DENIES HAVING A PLAN IN PLACE. PT STATES "THATS WHY THEY GIVE ME MY MEDICINE. IT MAKES ME HAPPY". PT ORIENTED TO ROOM AND HOSPITAL POLICY ON ADMISSION. ADMISSION ASSESSMENT COMPLETE.
[2019-04-22 12:30] VITALS: BP 105/69; BMI 29.0
--- NOTE | 2019-04-22 13:08 | NUR ---
CATHODE RAY TUBE SALVAGE PROCESSOR NOTIFIED OF PT SUICIDE RISK ASSESSMENT. WILL WAIT FOR FURTHER EVALUATION.
--- NOTE | 2019-04-22 13:12 | NUR ---
PT REFUSING FALL PRECAUTIONS/BED ALARM AT THIS TIME. RELEASE OF RESPONSIBILITY SIGNED BY PT. PT IS AAOX 4 AND INFORMED OF SAFETY AND PRECAUTIONS FOR FALL RISKS. PT ALSO REFUSES SCDS AT THIS TIME. PT INFORMED OF RISK FOR DVT AND PT VERBALIZES UNDERSTADNING AND DENIES FURTHER QUESTIONS/CONCERNS/NEEDS AT THIS TIME. BED IS IN THE LOWEST POSITION. CALL LIGHT AND BEDSIDE TABLE ARE WITIHN REACH. SIDE RAILS X 2. SPOUSE AT BEDSIDE. WILL CONT TO MONITOR. SIGNED WAIVER PLACED IN PT CHART.
--- NOTE | 2019-04-22 14:38 | NUR ---
SITTING UP IN BED RESPIRATORY TREATMENT IN PROGRESS. PT IS SWAYING BACK AND STATING "I HAVE TO HAVE MY MEDICINES. MY ANXIETY IS REALLY HIGH AND I NEED MY MEDICINE". PAGE PLACED TO CHIARA MENDOZA APRN TO NOTIFY. WILL AWAIT FURTHER INSTRUCTION.
--- NOTE | 2019-04-22 14:52 | NUR ---
PT GIVEN MEDICATIONS PER ORDER. SEE EMAR. PT WITH CONTINUED COMPLAINTS OF "ANXIETY" AND STATES "MY LAMICTAL DOSE IS NOT RIGHT! THEY HAVE TO FIX THAT RIGHT NOW! OR ELSE I WILL HAVE TO START ALL OVER AND BE LIKE THIS FOR ANOTHER WEEK" PAGE PLACED TO CHIARA MENDOZA APRN TO NOTIFY. WILL AWAIT FURTHER INSTRUCTION.
--- NOTE | 2019-04-22 15:01 | NUR ---
CHIARA MENDOZA APRN RETURNED PAGE. TELEPHONE ORDERS RECD TO ADJUST DOSE OF LAMICATL TO CURRENT DOES OF 200MG. WILL PLACE ORDER.
[2019-04-22] MEDS ORDERED: LYRICA75 MG PO (15:10)
--- NOTE | 2019-04-22 16:16 | NUR ---
PT IS A MODERATE RISK PER ASSESSMENT. DR. TAYLOR NOTIFIED AND NO SITTER NEEDED. PT HAS A HX OF BIPOLAR, SEVERE ANXIETY, AND PTSD. PT DENIES SI AT THIS TIME. PT EXPRESSES APPROPRIATE COPING SKILLS AND HAS A GREAT SUPPORT GROUP. RESOURCES GIVEN AND PT VERBALIZED UNDERSTANDING.
[2019-04-22 16:45] VITALS: BP 124/85
--- NOTE | 2019-04-22 17:43 | NUR ---
TAKE UP SUPERVISOR NOTIFIED OF NEED FOR OVERRIDE ON NICOTINE PATCH.
[2019-04-22 20:00] VITALS: BP 123/77
--- NOTE | 2019-04-22 20:45 | NUR ---
UP AD YARI IN ROOM. RESP EVEN AND UNALBORED. NO DISTRESS NOTED.SL TO LFA WIHTOUT REDNESS OR EDEMA NOTED. NO COMPLAINTS VOICED. CL IN REACH
[2019-04-23] VITALS: BP 128/87
[2019-04-23 04:00] VITALS: BP 121/86
[2019-04-23 06:08] LABS: BASOPHILS 0 % (0-2); EOSINOPHILS 0 % (0-7); HEMATOCRIT 39.4 % (36.0-48.0); HEMOGLOBIN 13.6 g/dL (12-16); IMMATURE GRANULOCYTES 0.3 % (0-5); LYMPHOCYTES 9.8 % (15-50); MCH 33.2 pg (26.0-34.0); MCHC 34.5 g/dL (31.0-37.0); MCV 96.1 fL (80.0-100.0); MEAN PLATELET VOLUME 9.3 fL (7.4-10.4); MONOCYTES 2.7 % (2-11); NEUTROPHILS 87.2 % (40-80); RDW 13.5 % (11.5-14.5)
[2019-04-23 06:21] LABS: ALBUMIN 3.6 g/dL (3.4-5.0); ANION GAP 16.4 mmol/L (8-16); BILIRUBIN - TOTAL 0.27 mg/dL (0.2-1.3); CALCIUM 9.9 mg/dL (8.5-10.1); CARBON DIOXIDE 24.2 mmol/L (21.0-32.0); CREATININE - SERUM 1.1 mg/dL (0.6-1.3); MAGNESIUM - SERUM 1.7 mg/dL (1.8-2.4); POTASSIUM - SERUM 3.6 mmol/L (3.5-5.1); PROTEIN - SERUM 7.5 g/dL (6.4-8.2)
[2019-04-23 06:30] LABS: PLATELET COUNT 360 10x3/uL (130-400); WBC 10.5 10x3/uL (4.8-10.8)
--- NOTE | 2019-04-23 07:04 | NUR ---
I have reviewed this patient and I concur with the Shift Assessment completed by the Licensed Practical Nurse today this shift.
--- NOTE | 2019-04-23 07:05 | NUR ---
PATIENT A/O AT THIS TIME. SHIFT REPORT GIVEN. CL IN REACH. NO CONCERNS AT THIS TIME. WCTM
[2019-04-23 07:39] VITALS: BP 116/79
--- NOTE | 2019-04-23 08:37 | NUR ---
0819: RAPID RESPONSE NOTED AT THIS TIME, PT C/O CHEST PAIN WHICH RADIATES TO RT SHOULDER. PT ALSO C/O FACE/LIPS/TONGUE NUMB WITH SLIGHT SLUR SPEECH. ALL OTHER NEURO CHECKS NOTED WNL FOR PT. EYES PERRLA, SMILE/TONGUE SYMMETRICAL. AFTER A FEW MOMENTS PT SPEECH CLEAR. THROUGHOUT ENTIRE TIME PT NOTED TO BE COMPLETLY ALERT AND ORIENTED AND GOOD HISTORIAN TO STATUS AND MEDICAL HISTORY. ALSO NOTED THAT PT PUPILS ARE SIZE 5 AND REACTIVE. 0830: PT STATES PAIN SUBSIDED. DR MCQUEEN NOTIFIED OF THIS, STATED THIS PAIN IS SYMPTOMATIC OF HER PE WHICH SHE IS RECIEVING TREATMENT FOR. PER DR MCQUEEN ORDER ABG AND URINE DRUG SCREEN. HE STATED TO NOT OBTAIN CT HEAD OR ANY FURTHER TESTING. VSS: 137/82, 97 SINUS PER EKG, 96% ON 3L NC, RR 22. DR MCQUEEN STATED HE WILL SEE PT LATER TO FURTHERLY ASSESS.
[2019-04-23 09:50] LABS: CKMB 2.6 U/L (0.0-3.6); CREATINE KINASE 72 UL (21-215); TROPONIN-I < 0.017 ng/mL (0.000-0.060)
--- NOTE | 2019-04-23 10:49 | NUR ---
FAMILY IN ROOM. PATIENT STATES CAITLIN HAMPTON WENT OVER MEDS YESTERDAY AND THEY ARE STILL NOT RIGHT. WILL NOTIFY PRIMARY WHEN I SEE THEM. 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 WILL NOTIFY PRIMARY. STATED SHE HAD THE LE FACE AND WEIGHT GAIN AND THE BUFFALO HUMP. CL IN REACH. TM
[2019-04-23 11:47] VITALS: BP 122/83
[2019-04-23 11:51] LABS: UDS - AMPHET NEGATIVE QUAL (NEGATIVE); UDS - BARB NEGATIVE QUAL (NEGATIVE); UDS - BENZO POSITIVE QUAL (NEGATIVE); UDS - COCAINE NEGATIVE QUAL (NEGATIVE); UDS - OPIATE NEGATIVE QUAL (NEGATIVE); UDS - PCP NEGATIVE QUAL (NEGATIVE); UDS - THC NEGATIVE QUAL (NEGATIVE)
--- NOTE | 2019-04-23 12:15 | NUR ---
FAMILY IN ROOM. PATIENT STATES SHE NEEDS A YEAST INFECTION MEDICATION. WILL NOTIFY DR WHEN THEY ROUND. CL IN REACH. LAURATM
--- NOTE | 2019-04-23 14:57 | MORECARE ---
CASE MANAGEMENT DISCHARGE SUMMARY PATIENT: SAMPSON SALGADO UNIT: [id number] ADM DATE: 04/22/19 AGE: 48 : 70 SEX: F ROOM/BED: D.2205 AUTHOR: CHERYL DOTY PHYSICIAN: REFERRING PHYSICIAN: RENNY MCQUEEN MD DATE OF SERVICE: 04/23/19 Discharge Plan Patient Name: SAMPSON SALGADO Facility: [facility]:[place] : 1970 Planned Disposition: Anticipated Discharge Date: Discharge Date: Expected LOS: Initial Reviewer: [email or web address] Initial Review Date: 04/23/2019 Generated: 04/23/19 3:56 pm Comments DCP- Discharge Planning Updated by [email or web address]: Erlinda Bailey on 04/23/19 1:[address] Patient Name: SAMPSON SALGADO Admission Status: ER Accout number: [id number] Admission Date: 04-22-2019 : 1970 Admission Diagnosis: Attending: RENNY MCQUEEN Current LOS: 1 Anticipated DC Date: Planned Disposition: Primary Insurance: [facility] MEDICARE SOLUTIONS Discharge Planning Comments: CM GAVE PATIENT ADVANCED DIRECTIVE PACKET REQUESTED BY HER. SHE WILL CONTACT CM OR HER NURSE WHEN IT IS COMPLETE. Linux Devops Engineer: Erlinda Lynn Patient Name: SAMPSON SALGADO Page 32780 at 1457 All edits/amendments must be made on the electronic document DICTATION DATE: 04/23/191455 SITE SAFETY MANAGER: DM 04/23/19 1456 RPT#: [id number] DC DATE: STATUS: ADM IN [facility] [address] [place] [address] END OF REPORT
[2019-04-23 15:19] VITALS: BP 123/78
[2019-04-23] MEDS ORDERED: KLOR-CON 1010 MEQ PO (15:28)
--- NOTE | 2019-04-23 16:26 | NUR ---
PATIENT PLACED PORTABLE OXYGEN ON HERSELF AND IS WHEELING HER AROUND THE HOSPITAL. WILL NOTIFY ME WHEN BACK IN ROOM FOR SOLU-MEDROL.
[2019-04-23 20:00] VITALS: BP 131/83
--- NOTE | 2019-04-23 21:22 | NUR ---
AWAKE ALERT.NO COMPALITNS VOICED AT PRESENT. SL TO LAC INTACT WITHOUT REDNESS OR EDEMA NOTED. O2 @ 3L PER NC ON. CL IN REACH. FAMILY AT BEDSIDE.
--- NOTE | 2019-04-24 02:51 | NUR ---
I have reviewed this patient and I concur with the Shift Assessment completed by the Licensed Practical Nurse today this shift.
[2019-04-24 04:00] VITALS: BP 127/80
[2019-04-24 05:21] LABS: BASOPHILS 0 % (0-2); EOSINOPHILS 0.1 % (0-7); HEMATOCRIT 37.1 % (36.0-48.0); HEMOGLOBIN 12.5 g/dL (12-16); IMMATURE GRANULOCYTES 0.3 % (0-5); LYMPHOCYTES 11.1 % (15-50); MCH 33.3 pg (26.0-34.0); MCHC 33.7 g/dL (31.0-37.0); MEAN PLATELET VOLUME 9.4 fL (7.4-10.4); MONOCYTES 9.6 % (2-11); NEUTROPHILS 78.9 % (40-80); PLATELET COUNT 367 10x3/uL (130-400); RBC 3.75 10x6/uL (4.00-5.40); RDW 13.6 % (11.5-14.5)
[2019-04-24 05:29] LABS: MCV 98.9 fL (80.0-100.0); WBC 13.6 10x3/uL (4.8-10.8)
[2019-04-24 05:38] LABS: ANION GAP 13.4 mmol/L (8-16); CALCIUM 9.4 mg/dL (8.5-10.1); CARBON DIOXIDE 27.2 mmol/L (21.0-32.0); CREATININE - SERUM 0.9 mg/dL (0.6-1.3); MAGNESIUM - SERUM 2.3 mg/dL (1.8-2.4); POTASSIUM - SERUM 3.6 mmol/L (3.5-5.1)
--- NOTE | 2019-04-24 07:40 | NUR ---
PT RESTING IN BED QUIETLY WITH EYES CLOSED. PT AWAKENS STAFF ENTERS ROOM. RESP EVEN AND UNLABORED. IV TO RIGHT WRIST WITH NS @ 100ML/HR INFUSING VIA PUMP. SITE WITHOUT REDNESS OR EDEMA. FAMILY AT BEDSIDE. DENIES FURTHER NEEDS AT THIS TIME. CL WITHIN REACH. ENCOURAGED TO CALL WITH NEEDS.
--- NOTE | 2019-04-24 08:37 | NUR ---
PT RESTING IN BED WITH SO AT BEDSIDE. RESP SHALLOW WITH EXERTION. O2 @ [address] IV TO LEFT AC SALINE LOC. DENIES FURTHER NEEDS AT THIS TIME. CL WITHIN REACH. ENCOURAGED TO CALL WITH NEEDS. CONTINUE POC
[2019-04-24 08:58] VITALS: BP 104/59
[2019-04-24 13:49] VITALS: BP 109/57
[2019-04-24 14:40] VITALS: BMI 29.0
[2019-04-24 16:39] VITALS: BP 109/71
--- NOTE | 2019-04-24 17:56 | NUR ---
OT NOTE: PT COMPLETED SUPINE TO SIT WITH SPV. PT COMPLETED SIT TO STAND WITH SPV. PT COMPLETED ADL MOB WITH CGA. PT COMPLETED UE AROM AXS AT EOB. PT COMPLETED LENCHO SOCKS WITH SPV. PT DOING VERY WELL. [phone] THANK YOU,SHAD BULL
[2019-04-24 20:00] VITALS: BP 115/62
[2019-04-25] VITALS: BP 107/55
--- NOTE | 2019-04-25 01:11 | NUR ---
EKD PER ORDER SHOWED NORMAL SINUS RHYTHM LOW VOLTAGE QRS T WAVE ABNORMALITY, CONSIDER ANTERIOR ISCHEMIA ABNORMAL EKG
[2019-04-25 06:02] LABS: BASOPHILS 0.3 % (0-2); HEMATOCRIT 38.2 % (36.0-48.0); HEMOGLOBIN 12.2 g/dL (12-16); IMMATURE GRANULOCYTES 0.3 % (0-5); LYMPHOCYTES 37.7 % (15-50); MCH 32.7 pg (26.0-34.0); MCHC 31.9 g/dL (31.0-37.0); MEAN PLATELET VOLUME 9.3 fL (7.4-10.4); MONOCYTES 15.6 % (2-11); NEUTROPHILS 45.1 % (40-80); PLATELET COUNT 314 10x3/uL (130-400); RBC 3.73 10x6/uL (4.00-5.40); RDW 13.8 % (11.5-14.5)
[2019-04-25 06:13] LABS: MCV 102.4 fL (80.0-100.0); WBC 6.9 10x3/uL (4.8-10.8)
[2019-04-25 06:36] LABS: ANION GAP 12.4 mmol/L (8-16); CARBON DIOXIDE 27.6 mmol/L (21.0-32.0); MAGNESIUM - SERUM 2.2 mg/dL (1.8-2.4)
--- NOTE | 2019-04-25 08:08 | NUR ---
PT RESTING IN BED WITH EYES CLOSED. RESP EVEN AND UNLABORED. O2 @ 3L NC. PT AROUSES WITH NAME CALLED, BUT TURNS, LOOKS AT STAFF AND CLOSES EYES. IV TO LEFT AC SALINE LOC. CL WITHIN REACH. ENCOURAGED TO CALL WITH NEEDS. CONTINUE POC
[2019-04-25 08:10] VITALS: BP 107/64
[2019-04-25 09:06] VITALS: Ht 157.5 cm; Wt 71.9 kg
[2019-04-25 11:09] LABS: ACLA - IGG AB <9 GPL U/mL (0-14); ACLA - IGM AB <9 MPL U/mL (0-12)
[2019-04-25 12:24] VITALS: BP 120/83
--- NOTE | 2019-04-25 14:53 | EC ---
PATIENT:SAMPSON SALGADO DATE OF SERVICE: 04/22/19 SEX: F MEDICAL RECORD: [id number] DATE OF : [birth year] LOCATION:[facility] AGE OF PATIENT: 48 ADMISSION DATE: 04/22/19 REFERRING PHYSICIAN: INTERPRETING PHYSICIAN: AUSTEN ARELLANO MD ECHOCARDIOGRAM REPORT ECHO CHARGES 4 ECHO COMPLETE Date: 04/24/19 CLINICAL DIAGNOSIS: DYSPNEA ECHOCARDIOGRAPHIC MEASUREMENTS (adult normal given) AC root (d.<3.7cm) 2.7 cm LV Septum d (<1.2 cm> 0.9 cm Valve Excursion 1.7 cm LV Septum (systole) 1.1 cm Left Atria (s.<4.0cm> 2.5 cm LVPW d(<1.2cm) 1.2 cm RV (d.<2.3cm) 2.5 cm LVPW (sytole) 1.3 cm LV diastole(<5.6CM) 3.4 cm MV E-F(>70mm/sec) cm LV systole 2.6 cm LVOT Diameter 1.7 cm MV exc.(>10mm) cm Est.ejection fraction (50-75%) % DOPPLER: LVIT cm/sec A 58 cm/sec E 54 cm/sec LA cm/sec RVSP 15.6 mmHg LVOT 87 cm/sec AOP1/2T m/s Asc. Ao 132 cm/sec RVOT 61 cm/sec RA cm/sec PA 92 cm/sec AV Gradient Peak 7.0 mmHg AV Mean 3.7 mmHg AV Area 1.7 cm MV Gradient Peak 4.2 mmHg MV Mean 1.9 mmHg MV Area cm COMMENTS: Fixture Repairer Fabricator: La ROBISON Plastic Panel Installer: 3 Dr. Duffy TAPE# PACS Pericardial Effusion N DATE OF SERVICE: Adequate 2D, color flow, spectral Doppler, and M-Mode. No LVH. LV internal dimension is normal, wall motion is normal, EF is greater than or equal to 55%. Aortic valve is tricuspid. No evidence of stenosis by Doppler interrogation. Left atrium is again normal at 2.5 cm. Mitral valve shows no prolapse. Trivial MR. Right-sided chambers grossly normal. Trivial TR. ECHOCARDIOGRAM REPORT [id number] SAMPSON SALGADO TRANSINT:[id number] Voice Confirmation ID: [id number] DOCUMENT ID: [id number] AUSTEN ARELLANO MD at 1453 CC: [id number] DICTATION DATE: 04/25/19825 COOLER OPERATOR: 04/25/[address] [facility] [address] [place] [id number]
--- NOTE | 2019-04-25 15:38 | NUR ---
OT NOTE: PT UP AND AMB IN ROOM; REPORTS NO ISSUES. WILL DC OT AT THIS TIME SHE IS INDEP IN ROOM. SAVANAH POWELL, OTR/L
[2019-04-25 15:51] VITALS: BP 114/86
--- NOTE | 2019-04-25 19:33 | NUR ---
ON O2 AT 3L VIA N/C IN PLACE, IV TO LEFT AC IN PLACE SL. ALERT AND ORENTED ABLE TO VOICE NEEDS AND WANTS TO STAFF.
[2019-04-25 20:00] VITALS: BP 110/67
[2019-04-26] VITALS: BP 122/70
--- NOTE | 2019-04-26 03:04 | NUR ---
EKG SINUS RHYTHM WITH OCCASIONAL PREMATURE VENTRICULAR COMPLEXES
[2019-04-26 04:00] VITALS: BP 106/69
[2019-04-26 05:28] LABS: BASOPHILS 0.2 % (0-2); EOSINOPHILS 1.7 % (0-7); HEMATOCRIT 38.3 % (36.0-48.0); HEMOGLOBIN 12.4 g/dL (12-16); IMMATURE GRANULOCYTES 0.5 % (0-5); LYMPHOCYTES 39.9 % (15-50); MCH 33.1 pg (26.0-34.0); MCHC 32.4 g/dL (31.0-37.0); MCV 102.1 fL (80.0-100.0); MEAN PLATELET VOLUME 9.3 fL (7.4-10.4); MONOCYTES 13.1 % (2-11); NEUTROPHILS 44.6 % (40-80); PLATELET COUNT 314 10x3/uL (130-400); RBC 3.75 10x6/uL (4.00-5.40); RDW 13.6 % (11.5-14.5); WBC 6.7 10x3/uL (4.8-10.8)
[2019-04-26 05:55] LABS: ANION GAP 10.8 mmol/L (8-16); CALCIUM 9.2 mg/dL (8.5-10.1); CARBON DIOXIDE 29.5 mmol/L (21.0-32.0); POTASSIUM - SERUM 4.3 mmol/L (3.5-5.1)
--- NOTE | 2019-04-26 08:44 | NUR ---
SHE IS SLEEPING HARD THIS MORNING. I WOKE HER UP TO TAKE HER MEDICATIONS. NO NEW ISSUES. O2 AT 3 LITERS NC.
[2019-04-26 08:54] VITALS: BP 100/66
--- NOTE | 2019-04-26 10:44 | MORECARE ---
CASE MANAGEMENT DISCHARGE SUMMARY PATIENT: SAMPSON SALGADO UNIT: [id number] ADM DATE: 04/22/19 AGE: 48 : 70 SEX: F ROOM/BED: D.2206 AUTHOR: CHERYL DOTY PHYSICIAN: REFERRING PHYSICIAN: RENNY MCQUEEN MD DATE OF SERVICE: 04/26/19 Discharge Plan Patient Name: SAMPSON SALGADO Facility: [facility]:[place] : 1970 Planned Disposition: Home with Home Health Anticipated Discharge Date: Discharge Date: Expected LOS: Initial Reviewer: [id number] Initial Review Date: 04/23/2019 Generated: 04/26/19 11:43 am DCP- Discharge Planning Updated by [email or web address]: Erlinda Bailey on 04/23/19 1:[address] Patient Name: SAMPSON SALGADO Admission Status: ER Accout number: [id number] Admission Date: 04-22-2019 : 1970 Admission Diagnosis: Attending: RENNY MCQUEEN Current LOS: 1 Anticipated DC Date: Planned Disposition: Primary Insurance: [facility] MEDICARE SOLUTIONS Discharge Planning Comments: CM GAVE PATIENT ADVANCED DIRECTIVE PACKET REQUESTED BY HER. SHE WILL CONTACT CM OR HER NURSE WHEN IT IS COMPLETE. Counter Waitress/Waiter: Erlinda Bailey DCPIA - Discharge Planning Initial Assessment Updated by [email or web address]: Taty Su on 04/26/19 10:43 am * Is the patient Alert and Oriented? Yes * How many steps to enter\exit or inside your home? 19 * PCP [facility] * Pharmacy [facility] * Preadmission Environment Home with Family * ADLs Independent * Equipment Cane Nebulizer Oxygen Walker Wheelchair * List name and contact numbers for known caregivers / representatives who currently or will assist patient after discharge: KAVITHA (SON) [phone] * Verbal permission to speak to the caregivers and representatives has been obtained from the patient. N/A * Community resources currently utilized None * Additional services required to return to the preadmission environment? Yes * Can the patient safely return to the preadmission environment? Yes * Has this patient been hospitalized within the prior 30 days at any hospital? Yes Coverage Notice Reviewer: [id number] - Taty Su Notice Issued Date-Time: 04/26/2019 10:00 Notice Type: IM Discharge Notice Notice Delivered To: Patient Relationship to Patient: All Source Intelligence Analyst Name: Delivery Method: HAND - Hand Delivered Rimma Days: Prior Verbal Notification: Recipient Understood Notice: Yes Recipient Signature: Yes Med Rec Note Co-signed by Attending: Coverage Notice Comment: imm served and explained Reviewer: [id number] Bill Su Notice Issued Date-Time: 04/26/2019 10:00 Notice Type: Patient Choice Letter Notice Delivered To: Patient Relationship to Patient: All Source Intelligence Analyst Name: Delivery Method: HAND - Hand Delivered Rimma Days: Prior Verbal Notification: Recipient Understood Notice: Yes Recipient Signature: Yes Med Rec Note Co-signed by Attending: Coverage Notice Comment: [facility] Last DP export: 04/23/19 1:57 p Patient Name: SAMPSON SALGADO Page [id number] at 1044 All edits/amendments must be made on the electronic document DICTATION DATE: 04/26/19 1043 AIRBORNE MISSIONS SYSTEMS: SHANTI 04/26/19 1043 RPT#: [id number] DC DATE: STATUS: ADM IN [facility] [address] [place] [address] END OF REPORT
--- NOTE | 2019-04-26 10:53 | MORECARE ---
CASE MANAGEMENT DISCHARGE SUMMARY PATIENT: SAMPSON SALGADO UNIT: [id number] ADM DATE: 04/22/19 AGE: 48 : 70 SEX: F ROOM/BED: D.2205 AUTHOR: CHERYL DOTY PHYSICIAN: REFERRING PHYSICIAN: RENNY MCQUEEN MD DATE OF SERVICE: 04/26/19 Discharge Plan Patient Name: SAMPSON SALGADO Facility: [facility]:[place] : 1970 Planned Disposition: Home with Home Health Anticipated Discharge Date: Discharge Date: Expected LOS: Initial Reviewer: [id number] Initial Review Date: 04/23/2019 Generated: 04/26/19 11:52 am Comments DCP- Discharge Planning Updated by [email or web address]: Taty Su on 04/26/19 9:[address] Patient Name: SAMPSON SALGADO Admission Status: ER Accout number: [id number] Admission Date: 04-22-2019 : 1970 Admission Diagnosis: Attending: RENNY MCQUEEN Current LOS: 4 Anticipated DC Date: Planned Disposition: Home with Home Health Primary Insurance: [facility] MEDICARE SOLUTIONS Discharge Planning Comments: CM met with patient to complete initial dc planning assessment. CM educated patient on the CM role and verbal consent given by patient to complete assessment. Patient lives at home with her spouse and son where they help her with whatever she needs help with. At discharge patient plans to return home and feels this is a safe discharge. Her will be her nascar driver home. CM discussed availability of home health, rehab services, and medical equipment. She has a nebulizer and home O2 with [facility] and she would like to have home health this time. JIMI with [employer]. I have contacted Benjamin to let him know. IMM served and explained. Patient denied known discharge needs at this time. CM will continue to follow and will assist as needed with dc plans/needs. Head Silverman: Taty Su DCP- Discharge Planning Updated by [id number]: Erlinda Bailey on 04/23/19 1:[address] Patient Name: SAMPSON SALGADO Admission Status: ER Accout number: [id number] Admission Date: 04-22-2019 : 1970 Admission Diagnosis: Attending: RENNY MCQUEEN Current LOS: 1 Anticipated DC Date: Planned Disposition: Primary Insurance: [facility] MEDICARE SOLUTIONS Discharge Planning Comments: CM GAVE PATIENT ADVANCED DIRECTIVE PACKET REQUESTED BY HER. SHE WILL CONTACT CM OR HER NURSE WHEN IT IS COMPLETE. Head Silverman: Erlinda Bailey DCPIA - Discharge Planning Initial Assessment Updated by [email or web address]: Taty Su on 04/26/19 10:43 am * Is the patient Alert and Oriented? Yes * How many steps to enter\exit or inside your home? 19 * PCP [facility] * Pharmacy [facility] * Preadmission Environment Home with Family * ADLs Independent * Equipment Cane Nebulizer Oxygen Walker Wheelchair * List name and contact numbers for known caregivers / representatives who currently or will assist patient after discharge: KAVITHA (SON) [phone] * Verbal permission to speak to the caregivers and representatives has been obtained from the patient. N/A * Community resources currently utilized None * Additional services required to return to the preadmission environment? Yes * Can the patient safely return to the preadmission environment? Yes * Has this patient been hospitalized within the prior 30 days at any hospital? Yes Coverage Notice Reviewer: [id number] Bill Su Notice Issued Date-Time: 04/26/2019 10:00 Notice Type: IM Discharge Notice Notice Delivered To: Patient Relationship to Patient: Intelligence Manager Name: Delivery Method: HAND - Hand Delivered Rimma Days: Prior Verbal Notification: Recipient Understood Notice: Yes Recipient Signature: Yes Med Rec Note Co-signed by Attending: Coverage Notice Comment: imm served and explained Reviewer: [id number] Bill Su Notice Issued Date-Time: 04/26/2019 10:00 Notice Type: Patient Choice Letter Notice Delivered To: Patient Relationship to Patient: Intelligence Manager Name: Delivery Method: HAND - Hand Delivered Rimma Days: Prior Verbal Notification: Recipient Understood Notice: Yes Recipient Signature: Yes Med Rec Note Co-signed by Attending: Coverage Notice Comment: [facility] for [employer] [facility] Last DP export: 04/26/19 9:44 a Patient Name: SAMPSON SALGADO Page [phone] at 1053 All edits/amendments must be made on the electronic document DICTATION DATE: 04/26/19 1052 THERMODYNAMICS ENGINEER: SHANTI 04/26/19 1052 RPT#: [id number] DC DATE: STATUS: ADM IN [facility] [address] [place] [address] END OF REPORT
[2019-04-26] MEDS ORDERED: VIBRAMYCIN 100100 MG PO (11:49)
[2019-04-26] MEDS ORDERED: PROTONIX40 MG PO (11:50)
[2019-04-26] MEDS ORDERED: FLORAJEN3 CAPS460 MG PO (11:50)
[2019-04-26] MEDS ORDERED: ELIQUIS5 MG PO (11:51)
[2019-04-26 12:32] VITALS: BP 116/85
--- NOTE | 2019-04-26 12:34 | MORECARE ---
CASE MANAGEMENT DISCHARGE SUMMARY PATIENT: SAMPSON SALGADO UNIT: [id number] ADM DATE: 04/22/19 AGE: 48 : 70 SEX: F ROOM/BED: D.2204 AUTHOR: CHERYL DOTY PHYSICIAN: REFERRING PHYSICIAN: RENNY MCQUEEN MD DATE OF SERVICE: 04/26/19 Discharge Plan Patient Name: SAMPSON SALGADO Facility: [facility]:[place] : 1970 Planned Disposition: Home with Home Health Anticipated Discharge Date: Discharge Date: Expected LOS: Initial Reviewer: [email or web address] Initial Review Date: 04/23/2019 Generated: 04/26/19 1:33 pm Comments DCP- Discharge Planning Updated by [email or web address]: Taty Su on 04/26/19 11:[address] I HAVE FAXED CLINICAL TO [facility] AND LET THEM KNOW OF HER DISCHARGE CM TO FOLLOW AND ASSIST NEEDED DCP- Discharge Planning Updated by [id number]: Taty Su on 04/26/19 9:[address] Patient Name: SAMPSON SALGADO Admission Status: ER Accout number: [id number] Admission Date: 04-22-2019 : 1970 Admission Diagnosis: Attending: RENNY MCQUEEN Current LOS: 4 Anticipated DC Date: Planned Disposition: Home with Home Health Primary Insurance: [facility] MEDICARE SOLUTIONS Discharge Planning Comments: CM met with patient to complete initial dc planning assessment. CM educated patient on the CM role and verbal consent given by patient to complete assessment. Patient lives at home with her spouse and son where they help her with whatever she needs help with. At discharge patient plans to return home and feels this is a safe discharge. Her will be her regional tanker truck driver home. CM discussed availability of home health, rehab services, and medical equipment. She has a nebulizer and home O2 with [facility] and she would like to have home health this time. ELINA with [employer]. I have contacted Ray to let him know. IMM served and explained. Patient denied known discharge needs at this time. CM will continue to follow and will assist as needed with dc plans/needs. Pearl Diver: Taty Su DCP- Discharge Planning Updated by [id number]: Erlinda Bailey on 04/23/19 1:[address] Patient Name: SAMPSON SALGADO Admission Status: ER Accout number: [id number] Admission Date: 04-22-2019 : 1970 Admission Diagnosis: Attending: RENNY MCQUEEN Current LOS: 1 Anticipated DC Date: Planned Disposition: Primary Insurance: [facility] MEDICARE SOLUTIONS Discharge Planning Comments: CM GAVE PATIENT ADVANCED DIRECTIVE PACKET REQUESTED BY HER. SHE WILL CONTACT CM OR HER NURSE WHEN IT IS COMPLETE. Pearl Diver: Erlinda Lynn DCPIA - Discharge Planning Initial Assessment Updated by [id number]: Taty Su on 04/26/19 10:43 am * Is the patient Alert and Oriented? Yes * How many steps to enter\exit or inside your home? 19 * PCP [facility] * Pharmacy [facility] * Preadmission Environment Home with Family * ADLs Independent * Equipment Cane Nebulizer Oxygen Walker Wheelchair * List name and contact numbers for known caregivers / representatives who currently or will assist patient after discharge: KAVITHA (SON) [phone] * Verbal permission to speak to the caregivers and representatives has been obtained from the patient. N/A * Community resources currently utilized None * Additional services required to return to the preadmission environment? Yes * Can the patient safely return to the preadmission environment? Yes * Has this patient been hospitalized within the prior 30 days at any hospital? Yes External Providers External Provider: KENDRICKShirley Mae[facility] Next Contact Date: Service Request Date: Service Type: Resolution: Reviewer: Comments: Coverage Notice Reviewer: [id number] Su Notice Issued Date-Time: 04/26/2019 10:00 Notice Type: IM Discharge Notice Notice Delivered To: Patient Relationship to Patient: Plastics Bench Mechanic Name: Delivery Method: HAND - Hand Delivered Rimma Days: Prior Verbal Notification: Recipient Understood Notice: Yes Recipient Signature: Yes Med Rec Note Co-signed by Attending: Coverage Notice Comment: imm served and explained Reviewer: [id number] Su Notice Issued Date-Time: 04/26/2019 10:00 Notice Type: Patient Choice Letter Notice Delivered To: Patient Relationship to Patient: Plastics Bench Mechanic Name: Delivery Method: HAND - Hand Delivered Rimma Days: Prior Verbal Notification: Recipient Understood Notice: Yes Recipient Signature: Yes Med Rec Note Co-signed by Attending: Coverage Notice Comment: [facility] Last DP export: 04/26/19 9:53 a Patient Name: SAMPSON SALGADO Page [phone] at 1234 All edits/amendments must be made on the electronic document DICTATION DATE: 04/26/19 1233 MICROBIOLOGY COORDINATOR: SHANTI 04/26/19 1233 RPT#: [id number] DC DATE: STATUS: ADM IN [facility] [address] [place] [address] END OF REPORT
--- NOTE | 2019-04-26 13:33 | MORECARE ---
CASE MANAGEMENT DISCHARGE SUMMARY PATIENT: SAMPSON SALGADO UNIT: [id number] ADM DATE: 04/22/19 AGE: 48 : 70 SEX: F ROOM/BED: D.220 AUTHOR: CHERYL DOTY PHYSICIAN: REFERRING PHYSICIAN: RENNY MCQUEEN MD DATE OF SERVICE: 04/26/19 Discharge Plan Patient Name: SAMPSON SALGADO Facility: [facility]:[place] : 1970 Planned Disposition: Home with Home Health Anticipated Discharge Date: Discharge Date: Expected LOS: Initial Reviewer: [id number] Initial Review Date: 04/23/2019 Generated: 04/26/19 2:32 pm Comments DCP- Discharge Planning Updated by [email or web address]: Taty Su on 04/26/19 12:[address] ROJAS HAS HELD HER DISCHARGE I ANTICIPATE DISCHARGE TOMORROW . I HAVE TOLD [facility] TO LET THEM KNOW. THEY WILL NEED THE NEW DC MED REC CM TO FOLLOW AND ASSIST NEEDED DCP- Discharge Planning Updated by [email or web address]: Taty Su on 04/26/19 11:[address] I HAVE FAXED CLINICAL TO [facility] AND LET THEM KNOW OF HER DISCHARGE CM TO FOLLOW AND ASSIST NEEDED DCP- Discharge Planning Updated by [email or web address]: Taty Su on 04/26/19 9:[address] Patient Name: SAMPSON SALGADO Admission Status: ER Accout number: [id number] Admission Date: 04-22-2019 : 1970 Admission Diagnosis: Attending: RENNY MCQUEEN Current LOS: 4 Anticipated DC Date: Planned Disposition: Home with Home Health Primary Insurance: [facility] MEDICARE SOLUTIONS Discharge Planning Comments: CM met with patient to complete initial dc planning assessment. CM educated patient on the CM role and verbal consent given by patient to complete assessment. Patient lives at home with her spouse and son where they help her with whatever she needs help with. At discharge patient plans to return home and feels this is a safe discharge. Her will be her chair car driver home. CM discussed availability of home health, rehab services, and medical equipment. She has a nebulizer and home O2 with [facility] and she would like to have home health this time. JIMI with [facility]. I have contacted Benjamin to let him know. IMM served and explained. Patient denied known discharge needs at this time. CM will continue to follow and will assist as needed with dc plans/needs. Global Cto: Taty Su DCP- Discharge Planning Updated by [id number]: Erlinda Bailey on 04/23/19 1:[address] Patient Name: SAMPSON SALGAOD Admission Status: ER Accout number: [id number] Admission Date: 04-22-2019 : 1970 Admission Diagnosis: Attending: RENNY MCQUEEN Current LOS: 1 Anticipated DC Date: Planned Disposition: Primary Insurance: [facility] MEDICARE SOLUTIONS Discharge Planning Comments: CM GAVE PATIENT ADVANCED DIRECTIVE PACKET REQUESTED BY HER. SHE WILL CONTACT CM OR HER NURSE WHEN IT IS COMPLETE. Global Cto: Erlinda Bailey DCPIA - Discharge Planning Initial Assessment Updated by [email or web address]: Taty Su on 04/26/19 10:43 am * Is the patient Alert and Oriented? Yes * How many steps to enter\exit or inside your home? 19 * PCP [facility] * Pharmacy [facility] * Preadmission Environment Home with Family * ADLs Independent * Equipment Cane Nebulizer Oxygen Walker Wheelchair * List name and contact numbers for known caregivers / representatives who currently or will assist patient after discharge: KAVITHA (SON) [phone] * Verbal permission to speak to the caregivers and representatives has been obtained from the patient. N/A * Community resources currently utilized None * Additional services required to return to the preadmission environment? Yes * Can the patient safely return to the preadmission environment? Yes * Has this patient been hospitalized within the prior 30 days at any hospital? Yes Coverage Notice Reviewer: [id number] Bill Su Notice Issued Date-Time: 04/26/2019 10:00 Notice Type: IM Discharge Notice Notice Delivered To: Patient Relationship to Patient: Stationary Equipment Mechanic Name: Delivery Method: HAND - Hand Delivered Rimma Days: Prior Verbal Notification: Recipient Understood Notice: Yes Recipient Signature: Yes Med Rec Note Co-signed by Attending: Coverage Notice Comment: imm served and explained Reviewer: [id number] Bill Su Notice Issued Date-Time: 04/26/2019 10:00 Notice Type: Patient Choice Letter Notice Delivered To: Patient Relationship to Patient: Stationary Equipment Mechanic Name: Delivery Method: HAND - Hand Delivered Rimma Days: Prior Verbal Notification: Recipient Understood Notice: Yes Recipient Signature: Yes Med Rec Note Co-signed by Attending: Coverage Notice Comment: [facility] Last DP export: 04/26/19 11:34 a Patient Name: SAMPSON SALGADO Page 03630 at 1333 All edits/amendments must be made on the electronic document DICTATION DATE: 04/26/191331 PUBLIC INFORMATION SPECIALIST: SHANTI 04/26/19 1332 RPT#: [id number] DC DATE: STATUS: ADM IN [facility] [address] [place] [address] END OF REPORT
--- NOTE | 2019-04-26 14:13 | NUR ---
OT NOTE; PT COMPLETED SUPINE TO SIT WITH SPV. PT COMPLETED ADL MOB WITH CGA. PT COMPLETED SIT TO STAND WITH SBA. PT COMPLETED LENCHO/DOFF SOCKS /SLIPPER WITH SPV. PT COMPLETED UE AROM EXS AT EOB WITH SPV. PT DOING WELL. [id number] THANK YOU,SHAD BULL
[2019-04-26 16:44] VITALS: BP 114/69
[2019-04-26 20:43] VITALS: BP 117/72
[2019-04-27 00:20] VITALS: BP 118/83
--- NOTE | 2019-04-27 01:06 | NUR ---
EKG RAN PER ORDERS NORMAL SINUS RHYTYM
--- NOTE | 2019-04-27 03:45 | NUR ---
RESTING IN BED ASLEEP WITH IV TO LEFT AC NO REDNESS NOTED. O2 AT 3 L VIA N/C IN PLACE. TELEMERTY IN PLACE RUNNING 97 SINUS RUTHEM. NO NEEDS NOTED NO S/S OF DISTRESS
[2019-04-27 05:52] LABS: BASOPHILS 0.3 % (0-2); EOSINOPHILS 2.8 % (0-7); HEMATOCRIT 38.8 % (36.0-48.0); HEMOGLOBIN 12.5 g/dL (12-16); IMMATURE GRANULOCYTES 0.5 % (0-5); LYMPHOCYTES 32.2 % (15-50); MCH 32.4 pg (26.0-34.0); MCHC 32.2 g/dL (31.0-37.0); MCV 100.5 fL (80.0-100.0); MEAN PLATELET VOLUME 9.3 fL (7.4-10.4); MONOCYTES 14.6 % (2-11); NEUTROPHILS 49.6 % (40-80); PLATELET COUNT 318 10x3/uL (130-400); RBC 3.86 10x6/uL (4.00-5.40); RDW 13.2 % (11.5-14.5); WBC 6.4 10x3/uL (4.8-10.8)
[2019-04-27 06:17] VITALS: BP 105/66
[2019-04-27 06:27] LABS: ANION GAP 12.7 mmol/L (8-16); CALCIUM 9.2 mg/dL (8.5-10.1); CARBON DIOXIDE 29.5 mmol/L (21.0-32.0); MAGNESIUM - SERUM 2.1 mg/dL (1.8-2.4); POTASSIUM - SERUM 4.2 mmol/L (3.5-5.1)
--- NOTE | 2019-04-27 07:22 | NUR ---
ASKING FOR PAIN MED, PRN GIVEN. WEARING 3 LITERS NC, LOOKING FORWARD TO GOING HOME TODAY.
[2019-04-27 08:09] LABS: CA125 73.2 U/mL (0.0-38.1); CEA 7.2 ng/mL (0.0-4.7)
[2019-04-27 08:58] VITALS: BP 138/94
[2019-04-27 10:09] LABS: CA 27-29 28.4 U/mL (0.0-38.6)
[2019-04-27 12:26] VITALS: BP 96/72
[2019-04-27 17:15] VITALS: BP 95/67
[2019-04-27 20:00] VITALS: BP 108/68
[2019-04-27 20:07] LABS: FACTOR II DNA ANALYSIS Negative (())
[2019-04-28] VITALS: BP 170/69
--- NOTE | 2019-04-28 01:39 | NUR ---
rec'd. radhage of shift walking rounds.very verbal because meds and dosages, frequency not like she takes at home.informed sometimes there's a reason sometimes dr. moore chge or not continue some of the meds you where taking at home that we are not aware of.when they make round in am discuss it with him
--- NOTE | 2019-04-28 03:41 | NUR ---
I have reviewed this patient and I concur with the Shift Assessment completed by the Licensed Practical Nurse today this shift.
[2019-04-28 04:00] VITALS: BP 110/69
[2019-04-28 05:55] LABS: BASOPHILS 0.4 % (0-2); EOSINOPHILS 2.2 % (0-7); HEMATOCRIT 40.2 % (36.0-48.0); HEMOGLOBIN 13.2 g/dL (12-16); IMMATURE GRANULOCYTES 0.5 % (0-5); LYMPHOCYTES 30.1 % (15-50); MCH 32.8 pg (26.0-34.0); MCHC 32.8 g/dL (31.0-37.0); MEAN PLATELET VOLUME 9.1 fL (7.4-10.4); MONOCYTES 8.7 % (2-11); NEUTROPHILS 58.1 % (40-80); PLATELET COUNT 351 10x3/uL (130-400); RBC 4.02 10x6/uL (4.00-5.40); RDW 13.2 % (11.5-14.5)
[2019-04-28 05:57] LABS: WBC 8.1 10x3/uL (4.8-10.8)
[2019-04-28 06:27] LABS: ALBUMIN 3.4 g/dL (3.4-5.0); ANION GAP 13.5 mmol/L (8-16); BILIRUBIN - TOTAL 0.15 mg/dL (0.2-1.3); CALCIUM 8.9 mg/dL (8.5-10.1); CARBON DIOXIDE 29.8 mmol/L (21.0-32.0); CREATININE - SERUM 1.1 mg/dL (0.6-1.3); POTASSIUM - SERUM 4.3 mmol/L (3.5-5.1); PROTEIN - SERUM 6.7 g/dL (6.4-8.2)
[2019-04-28 07:11] LABS: LUPUS - INTERPRETATION Comment: (()); LUPUS - THROMBIN TIME 21.6 sec (0.0-23.0); LUPUS - dRVVT 47.2 sec (0.0-47.0)
--- NOTE | 2019-04-28 09:00 | NUR ---
AWAKE AND LETHARGIC BUT AROUSES AND FOLLOWS COMMANDS. LUNGS DIMINISHED X4 ANTERIOR. EKG OBTAINED AND DENIES ANY CHEST PAIN OR DISCOMFORT WITH HRRR. NO PERIPHERAL EDEMA NOTED AND AMBULATES ADLIB. ISOLATION DISCONTINUED DUE TO RESULTS.IV S/L TO RIGHT F/A. ENCOURAGED TO USE CALL LIGHT FOR ASSSIT.
[2019-04-28 09:39] VITALS: BP 106/74
--- NOTE | 2019-04-28 10:19 | MORECARE ---
CASE MANAGEMENT DISCHARGE SUMMARY PATIENT: SAMPSON SALGADO UNIT: [id number] ADM DATE: 04/22/19 AGE: 48 : 70 SEX: F ROOM/BED: D.2204 AUTHOR: CHERYL DOTY PHYSICIAN: REFERRING PHYSICIAN: RENNY MCQUEEN MD DATE OF SERVICE: 04/28/19 Discharge Plan Patient Name: SAMPSON SALGADO Facility: [facility]:[place] : 1970 Planned Disposition: Home with Home Health Anticipated Discharge Date: Discharge Date: Expected LOS: Initial Reviewer: [email or web address] Initial Review Date: 04/23/2019 Generated: 04/28/19 11:18 am DCP- Discharge Planning Updated by [email or web address]: Taty Su on 04/26/19 12:[address] ROJAS HAS HELD HER DISCHARGE I ANTICIPATE DISCHARGE TOMORROW . I HAVE TOLD [facility] TO LET THEM KNOW. THEY WILL NEED THE NEW DC MED REC CM TO FOLLOW AND ASSIST NEEDED DCP- Discharge Planning Updated by [id number]: Taty Su on 04/26/19 11:[address] I HAVE FAXED CLINICAL TO [facility] AND LET THEM KNOW OF HER DISCHARGE CM TO FOLLOW AND ASSIST NEEDED DCP- Discharge Planning Updated by [id number]: Taty Su on 04/26/19 9:[address] Patient Name: SAMPSON SALGADO Admission Status: ER Accout number: [id number] Admission Date: 04-22-2019 : 1970 Admission Diagnosis: Attending: RENNY MCQUEEN Current LOS: 4 Anticipated DC Date: Planned Disposition: Home with Home Health Primary Insurance: [facility] MEDICARE SOLUTIONS Discharge Planning Comments: CM met with patient to complete initial dc planning assessment. CM educated patient on the CM role and verbal consent given by patient to complete assessment. Patient lives at home with her spouse and son where they help her with whatever she needs help with. At discharge patient plans to return home and feels this is a safe discharge. Her will be her regional dedicated truck driver home. CM discussed availability of home health, rehab services, and medical equipment. She has a nebulizer and home O2 with [facility] and she would like to have home health this time. JIMI with [employer]. I have contacted Benjamin to let him know. IMM served and explained. Patient denied known discharge needs at this time. CM will continue to follow and will assist as needed with dc plans/needs. Mortgage Funder: Taty Su DCP- Discharge Planning Updated by [email or web address]: Erlinda Bailey on 04/23/19 1:[address] Patient Name: SAMPSON SALGADO Admission Status: ER Accout number: [id number] Admission Date: 04-22-2019 : 1970 Admission Diagnosis: Attending: RENNY MCQUEEN Current LOS: 1 Anticipated DC Date: Planned Disposition: Primary Insurance: [facility] MEDICARE SOLUTIONS Discharge Planning Comments: CM GAVE PATIENT ADVANCED DIRECTIVE PACKET REQUESTED BY HER. SHE WILL CONTACT CM OR HER NURSE WHEN IT IS COMPLETE. Mortgage Funder: Erlinda Bailey DCPIA - Discharge Planning Initial Assessment Updated by [id number]: Taty Su on 04/26/19 10:43 am * Is the patient Alert and Oriented? Yes * How many steps to enter\exit or inside your home? 19 * PCP [facility] * Pharmacy [facility] * Preadmission Environment Home with Family * ADLs Independent * Equipment Cane Nebulizer Oxygen Walker Wheelchair * List name and contact numbers for known caregivers / representatives who currently or will assist patient after discharge: KAVITHA (SON) [phone] * Verbal permission to speak to the caregivers and representatives has been obtained from the patient. N/A * Community resources currently utilized None * Additional services required to return to the preadmission environment? Yes * Can the patient safely return to the preadmission environment? Yes * Has this patient been hospitalized within the prior 30 days at any hospital? Yes Coverage Notice Reviewer: [id number] Bill Su Notice Issued Date-Time: 04/26/2019 10:00 Notice Type: IM Discharge Notice Notice Delivered To: Patient Relationship to Patient: Reinspector Name: Delivery Method: HAND - Hand Delivered Rimma Days: Prior Verbal Notification: Recipient Understood Notice: Yes Recipient Signature: Yes Med Rec Note Co-signed by Attending: Coverage Notice Comment: imm served and explained Reviewer: [id number] Bill Su Notice Issued Date-Time: 04/26/2019 10:00 Notice Type: Patient Choice Letter Notice Delivered To: Patient Relationship to Patient: Reinspector Name: Delivery Method: HAND - Hand Delivered Rimma Days: Prior Verbal Notification: Recipient Understood Notice: Yes Recipient Signature: Yes Med Rec Note Co-signed by Attending: Coverage Notice Comment: [facility] Reviewer: [id number] Bill Godinez Notice Issued Date-Time: 04/28/2019 10:17 Notice Type: IM Discharge Notice Notice Delivered To: Patient Relationship to Patient: Reinspector Name: Delivery Method: - Rmima Days: Prior Verbal Notification: Recipient Understood Notice: Yes Recipient Signature: Yes Med Rec Note Co-signed by Attending: Coverage Notice Comment: Last DP export: 04/26/19 12:33 p Patient Name: SAMPSON SALGADO Page [phone] at 1019 All edits/amendments must be made on the electronic document DICTATION DATE: 04/28/19 1018 AIR CREW OFFICER: SHANTI 04/28/19 1018 RPT#: [id number] DC DATE: STATUS: ADM IN [facility] [address] [place] [address] END OF REPORT
--- NOTE | 2019-04-28 10:26 | MORECARE ---
CASE MANAGEMENT DISCHARGE SUMMARY PATIENT: SAMPSON SALGADO UNIT: [id number] ADM DATE: 04/22/19 AGE: 48 : 70 SEX: F ROOM/BED: D.2205 AUTHOR: CHERYL DOTY PHYSICIAN: REFERRING PHYSICIAN: RENNY MCQUEEN MD DATE OF SERVICE: 04/28/19 Discharge Plan Patient Name: SAMPSON SALGADO Facility: [facility]:[place] : 1970 Planned Disposition: Home with Home Health Anticipated Discharge Date: Discharge Date: Expected LOS: Initial Reviewer: [id number] Initial Review Date: 04/23/2019 Generated: 04/28/19 11:25 am Comments DCP- Discharge Planning Updated by [email or web address]: Beatriz Godinez on 04/28/19 9:[address] DC PLAN: DISCHARGING HOME TODAY WITH [facility]. CM MET WITH JACK AND SHE DENIED FURTHER DC NEEDS. SENT DISCHARGE NOTIFICATION HAS BEEN SENT TO [facility]. BEATRIZ GODINEZ RN,CCM. DCP- Discharge Planning Updated by [id number]: Taty Su on 04/26/19 12:[address] ROJAS HAS HELD HER DISCHARGE I ANTICIPATE DISCHARGE TOMORROW . I HAVE TOLD [facility] TO LET THEM KNOW. THEY WILL NEED THE NEW DC MED REC CM TO FOLLOW AND ASSIST NEEDED DCP- Discharge Planning Updated by [email or web address]: Taty Su on 04/26/19 11:[address] I HAVE FAXED CLINICAL TO [facility] AND LET THEM KNOW OF HER DISCHARGE CM TO FOLLOW AND ASSIST NEEDED DCP- Discharge Planning Updated by [email or web address]: Taty Su on 04/26/19 9:[address] Patient Name: SAMPSON SALGADO Admission Status: ER Accout number: [id number] Admission Date: 04-22-2019 : 1970 Admission Diagnosis: Attending: RENNY MCQUEEN Current LOS: 4 Anticipated DC Date: Planned Disposition: Home with Home Health Primary Insurance: [facility] MEDICARE SOLUTIONS Discharge Planning Comments: CM met with patient to complete initial dc planning assessment. CM educated patient on the CM role and verbal consent given by patient to complete assessment. Patient lives at home with her spouse and son where they help her with whatever she needs help with. At discharge patient plans to return home and feels this is a safe discharge. Her will be her petroleum transport driver home. CM discussed availability of home health, rehab services, and medical equipment. She has a nebulizer and home O2 with [facility] and she would like to have home health this time. JIMI with [email or web address]. I have contacted Benjamin to let him know. IMM served and explained. Patient denied known discharge needs at this time. CM will continue to follow and will assist as needed with dc plans/needs. Database Marketing Specialist: Taty Su DCP- Discharge Planning Updated by [id number]: Erlinda Bailey on 04/23/19 1:[address] Patient Name: SAMPSON Hammonds NAOMI Admission Status: ER Accout number: [id number] Admission Date: 04-22-2019 : 1970 Admission Diagnosis: Attending: RENNY MCQUEEN Current LOS: 1 Anticipated DC Date: Planned Disposition: Primary Insurance: [facility] MEDICARE SOLUTIONS Discharge Planning Comments: CM GAVE PATIENT ADVANCED DIRECTIVE PACKET REQUESTED BY HER. SHE WILL CONTACT CM OR HER NURSE WHEN IT IS COMPLETE. Database Marketing Specialist: Erlinda Bailey DCPIA - Discharge Planning Initial Assessment Updated by [id number]: Taty Su on 04/26/19 10:43 am * Is the patient Alert and Oriented? Yes * How many steps to enter\exit or inside your home? 19 * PCP [facility] * Pharmacy [facility] * Preadmission Environment Home with Family * ADLs Independent * Equipment Cane Nebulizer Oxygen Walker Wheelchair * List name and contact numbers for known caregivers / representatives who currently or will assist patient after discharge: KAVITHA (SON) [phone] * Verbal permission to speak to the caregivers and representatives has been obtained from the patient. N/A * Community resources currently utilized None * Additional services required to return to the preadmission environment? Yes * Can the patient safely return to the preadmission environment? Yes * Has this patient been hospitalized within the prior 30 days at any hospital? Yes Coverage Notice Reviewer: [id number] - Taty Su Notice Issued Date-Time: 04/26/2019 10:00 Notice Type: Patient Choice Letter Notice Delivered To: Patient Relationship to Patient: Energy Rater Name: Delivery Method: HAND - Hand Delivered Rimma Days: Prior Verbal Notification: Recipient Understood Notice: Yes Recipient Signature: Yes Med Rec Note Co-signed by Attending: Coverage Notice Comment: [facility] Reviewer: [id number] - Beatriz Godinez Notice Issued Date-Time: 04/28/2019 10:17 Notice Type: IM Discharge Notice Notice Delivered To: Patient Relationship to Patient: Energy Rater Name: Delivery Method: - Rimma Days: Prior Verbal Notification: Recipient Understood Notice: Yes Recipient Signature: Yes Med Rec Note Co-signed by Attending: Coverage Notice Comment: Reviewer: [id number] - Taty Su Notice Issued Date-Time: 04/26/2019 10:00 Notice Type: IM Discharge Notice Notice Delivered To: Patient Relationship to Patient: Energy Rater Name: Delivery Method: HAND - Hand Delivered Rimma Days: Prior Verbal Notification: Recipient Understood Notice: Yes Recipient Signature: Yes Med Rec Note Co-signed by Attending: Coverage Notice Comment: imm served and explained Last DP export: 04/28/19 9:19 a Patient Name: SAMPSON SALGADO Page [phone] at 1026 All edits/amendments must be made on the electronic document DICTATION DATE: 04/28/19 1025 BAR HOSTESS: SHANTI 04/28/19 1025 RPT#: [id number] DC DATE: STATUS: ADM IN [facility] [address] [place] [address] END OF REPORT
--- NOTE | 2019-04-28 12:50 | NUR ---
IV DISCONTINUED AND VERBALIZED UNDERSTANDING OF DISCHARGE INSTRUCTIONS. STABLE AT TIME OF DEPARTURE.
--- NOTE | 2019-04-29 12:50 | MORECARE ---
CASE MANAGEMENT DISCHARGE SUMMARY PATIENT: SAMPSON SALGADO UNIT: [id number] ADM DATE: 04/22/19 AGE: 48 : 70 SEX: F ROOM/BED: D.2205 AUTHOR: CHERYL DOTY PHYSICIAN: REFERRING PHYSICIAN: RENNY MCQUEEN MD DATE OF SERVICE: 04/29/19 Discharge Plan Patient Name: SAMPSON SALGADO Facility: [facility]:[place] : 1970 Planned Disposition: Home with Home Health Anticipated Discharge Date: Discharge Date: 04/28/2019 Expected LOS: Initial Reviewer: [id number] Initial Review Date: 04/23/2019 Generated: 04/29/19 1:49 pm Comments DCP- Discharge Planning Updated by [email or web address]: Beatriz Godinez on 04/28/19 9:[address] DC PLAN: DISCHARGING HOME TODAY WITH [facility]. CM MET WITH JACK AND SHE DENIED FURTHER DC NEEDS. SENT DISCHARGE NOTIFICATION HAS BEEN SENT TO [facility]. BEATRIZ GODINEZ RN,CCM. DCP- Discharge Planning Updated by [id number]: Taty Su on 04/26/19 12:[address] ROJAS HAS HELD HER DISCHARGE I ANTICIPATE DISCHARGE TOMORROW . I HAVE TOLD [facility] TO LET THEM KNOW. THEY WILL NEED THE NEW DC MED REC CM TO FOLLOW AND ASSIST NEEDED DCP- Discharge Planning Updated by [id number]: Taty Su on 04/26/19 11:[address] I HAVE FAXED CLINICAL TO [facility] AND LET THEM KNOW OF HER DISCHARGE CM TO FOLLOW AND ASSIST NEEDED DCP- Discharge Planning Updated by [email or web address]: Taty Su on 04/26/19 9:[address] Patient Name: SAMPSON SALGADO Admission Status: ER Accout number: [id number] Admission Date: 04-22-2019 : 1970 Admission Diagnosis: Attending: RENNY MCQUEEN Current LOS: 4 Anticipated DC Date: Planned Disposition: Home with Home Health Primary Insurance: [facility] MEDICARE SOLUTIONS Discharge Planning Comments: CM met with patient to complete initial dc planning assessment. CM educated patient on the CM role and verbal consent given by patient to complete assessment. Patient lives at home with her spouse and son where they help her with whatever she needs help with. At discharge patient plans to return home and feels this is a safe discharge. Her will be her motor bus driver home. CM discussed availability of home health, rehab services, and medical equipment. She has a nebulizer and home O2 with [facility] and she would like to have home health this time. JIMI with [employer]. I have contacted Benjamin to let him know. IMM served and explained. Patient denied known discharge needs at this time. CM will continue to follow and will assist as needed with dc plans/needs. Salt Operator: Taty Su DCP- Discharge Planning Updated by [email or web address]: Erlinda Bailey on 04/23/19 1:[address] Patient Name: SAMPSON SALGADO Admission Status: ER Accout number: [id number] Admission Date: 04-22-2019 : 1970 Admission Diagnosis: Attending: RENNY MCQUEEN Current LOS: 1 Anticipated DC Date: Planned Disposition: Primary Insurance: [facility] MEDICARE SOLUTIONS Discharge Planning Comments: CM GAVE PATIENT ADVANCED DIRECTIVE PACKET REQUESTED BY HER. SHE WILL CONTACT CM OR HER NURSE WHEN IT IS COMPLETE. Salt Operator: Erlinda Bailey DCPIA - Discharge Planning Initial Assessment Updated by [id number]: Taty Su on 04/26/19 10:43 am * Is the patient Alert and Oriented? Yes * How many steps to enter\exit or inside your home? 19 * [facility] * [facility]acy [facility] * Preadmission Environment Home with Family * ADLs Independent * Equipment Cane Nebulizer Oxygen Walker Wheelchair * List name and contact numbers for known caregivers / representatives who currently or will assist patient after discharge: KAVITHA (SON) [phone] * Verbal permission to speak to the caregivers and representatives has been obtained from the patient. N/A * Community resources currently utilized None * Additional services required to return to the preadmission environment? Yes * Can the patient safely return to the preadmission environment? Yes * Has this patient been hospitalized within the prior 30 days at any hospital? Yes Coverage Notice Reviewer: [id number] - Taty Su Notice Issued Date-Time: 04/26/2019 10:00 Notice Type: IM Discharge Notice Notice Delivered To: Patient Relationship to Patient: Inbound Call Center Agent Name: Delivery Method: HAND - Hand Delivered Rimma Days: Prior Verbal Notification: Recipient Understood Notice: Yes Recipient Signature: Yes Med Rec Note Co-signed by Attending: Coverage Notice Comment: imm served and explained Reviewer: [id number] Bill Su Notice Issued Date-Time: 04/26/2019 10:00 Notice Type: Patient Choice Letter Notice Delivered To: Patient Relationship to Patient: Inbound Call Center Agent Name: Delivery Method: HAND - Hand Delivered Rimma Days: Prior Verbal Notification: Recipient Understood Notice: Yes Recipient Signature: Yes Med Rec Note Co-signed by Attending: Coverage Notice Comment: [facility] Reviewer: [id number] Bill Godinez Notice Issued Date-Time: 04/28/2019 10:17 Notice Type: IM Discharge Notice Notice Delivered To: Patient Relationship to Patient: Inbound Call Center Agent Name: Delivery Method: - Rimma Days: Prior Verbal Notification: Recipient Understood Notice: Yes Recipient Signature: Yes Med Rec Note Co-signed by Attending: Coverage Notice Comment: Last DP export: 04/28/19 9:26 a Patient Name: SAMPSON SALGADO Page [id number] at 1250 All edits/amendments must be made on the electronic document DICTATION DATE: 04/29/19 1249 BRIEF WRITER: DM 04/29/19 1249 RPT#: [id number] DC DATE:04/28/19 STATUS: DIS IN [facility] [address] [place] [address] END OF REPORT
--- NOTE | 2019-04-29 12:58 | MORECARE ---
CASE MANAGEMENT DISCHARGE SUMMARY PATIENT: SAMPSON SALGADO UNIT: [id number] ADM DATE: 04/22/19 AGE: 48 : 70 SEX: F ROOM/BED: D.2205 AUTHOR: CHERYL DOTY PHYSICIAN: REFERRING PHYSICIAN: RENNY MCQUEEN MD DATE OF SERVICE: 04/29/19 Discharge Plan Patient Name: SAMPSON SALGADO Facility: [facility]:[place] : 1970 Planned Disposition: Home with Home Health Anticipated Discharge Date: Discharge Date: 04/28/2019 Expected LOS: Initial Reviewer: [id number] Initial Review Date: 04/23/2019 Generated: 04/29/19 1:57 pm Comments DCP- Discharge Planning Updated by [id number]: Beatriz Godinez on 04/28/19 9:[address] DC PLAN: DISCHARGING HOME TODAY WITH [facility]. CM MET WITH JACK AND SHE DENIED FURTHER DC NEEDS. SENT DISCHARGE NOTIFICATION HAS BEEN SENT TO [facility]. BEATRIZ GODINEZ RN,CCM. DCP- Discharge Planning Updated by [email or web address]: Taty Su on 04/26/19 12:[address] ROJAS HAS HELD HER DISCHARGE I ANTICIPATE DISCHARGE TOMORROW . I HAVE TOLD [facility] TO LET THEM KNOW. THEY WILL NEED THE NEW DC MED REC CM TO FOLLOW AND ASSIST NEEDED DCP- Discharge Planning Updated by [id number]: Taty Su on 04/26/19 11:[address] I HAVE FAXED CLINICAL TO [facility] AND LET THEM KNOW OF HER DISCHARGE CM TO FOLLOW AND ASSIST NEEDED DCP- Discharge Planning Updated by [email or web address]: Taty Su on 04/26/19 9:[address] Patient Name: SAMPSON SALGADO Admission Status: ER Accout number: [id number] Admission Date: 04-22-2019 : 1970 Admission Diagnosis: Attending: RENNY MCQUEEN Current LOS: 4 Anticipated DC Date: Planned Disposition: Home with Home Health Primary Insurance: [facility] MEDICARE SOLUTIONS Discharge Planning Comments: CM met with patient to complete initial dc planning assessment. CM educated patient on the CM role and verbal consent given by patient to complete assessment. Patient lives at home with her spouse and son where they help her with whatever she needs help with. At discharge patient plans to return home and feels this is a safe discharge. Her will be her otr flatbed driver home. CM discussed availability of home health, rehab services, and medical equipment. She has a nebulizer and home O2 with [facility] and she would like to have home health this time. JIMI with [employer]. I have contacted Benjamin to let him know. IMM served and explained. Patient denied known discharge needs at this time. CM will continue to follow and will assist as needed with dc plans/needs. Eyeglass Fitter: Taty Su DCP- Discharge Planning Updated by [id number]: Erlinda Bailey on 04/23/19 1:[address] Patient Name: SAMPSON SALGADO Admission Status: ER Accout number: [id number] Admission Date: 04-22-2019 : 1970 Admission Diagnosis: Attending: RENNY MCQUEEN Current LOS: 1 Anticipated DC Date: Planned Disposition: Primary Insurance: [facility] MEDICARE SOLUTIONS Discharge Planning Comments: CM GAVE PATIENT ADVANCED DIRECTIVE PACKET REQUESTED BY HER. SHE WILL CONTACT CM OR HER NURSE WHEN IT IS COMPLETE. Eyeglass Fitter: Erlinda Bailey DCPIA - Discharge Planning Initial Assessment Updated by [id number]: Taty Su on 04/26/19 10:43 am * Is the patient Alert and Oriented? Yes * How many steps to enter\exit or inside your home? 19 * PCP [facility] * Pharmacy [facility] * Preadmission Environment Home with Family * ADLs Independent * Equipment Cane Nebulizer Oxygen Walker Wheelchair * List name and contact numbers for known caregivers / representatives who currently or will assist patient after discharge: KAVITHA (SON) [phone] * Verbal permission to speak to the caregivers and representatives has been obtained from the patient. N/A * Community resources currently utilized None * Additional services required to return to the preadmission environment? Yes * Can the patient safely return to the preadmission environment? Yes * Has this patient been hospitalized within the prior 30 days at any hospital? Yes Coverage Notice Reviewer: [id number] - Taty Su Notice Issued Date-Time: 04/26/2019 10:00 Notice Type: IM Discharge Notice Notice Delivered To: Patient Relationship to Patient: Order Packer Name: Delivery Method: HAND - Hand Delivered Rimma Days: Prior Verbal Notification: Recipient Understood Notice: Yes Recipient Signature: Yes Med Rec Note Co-signed by Attending: Coverage Notice Comment: imm served and explained Reviewer: [id number] Bill Su Notice Issued Date-Time: 04/26/2019 10:00 Notice Type: Patient Choice Letter Notice Delivered To: Patient Relationship to Patient: Order Packer Name: Delivery Method: HAND - Hand Delivered Rimma Days: Prior Verbal Notification: Recipient Understood Notice: Yes Recipient Signature: Yes Med Rec Note Co-signed by Attending: Coverage Notice Comment: [facility] Reviewer: [id number] Bill Godinez Notice Issued Date-Time: 04/28/2019 10:17 Notice Type: IM Discharge Notice Notice Delivered To: Patient Relationship to Patient: Order Packer Name: Delivery Method: - Rimma Days: Prior Verbal Notification: Recipient Understood Notice: Yes Recipient Signature: Yes Med Rec Note Co-signed by Attending: Coverage Notice Comment: Last DP export: 04/29/19 11:50 a Patient Name: SAMPSON SALGADO Page [phone] at 1258 All edits/amendments must be made on the electronic document DICTATION DATE: 04/29/19 1257 WOOD HEEL ATTACHER: DM 04/29/19 1257 RPT#: [id number] DC DATE:04/28/19 STATUS: DIS IN [facility] [address] [place] [address] END OF REPORT
== END 2019-04-28 12:50 | disposition home health service (06) | DRG 175 ==
LOC: D.ER 08:17 → D.MS 10:34
PROVIDERS: Family Medicine; Internal Medicine Hematology & Oncology; ADMIT Internal Medicine Nephrology; ATTEND Internal Medicine Nephrology
DX: I26.99 Other pulmonary embolism without acute cor pulmonale (principal); J96.01 Acute respiratory failure with hypoxia; J44.1 Chronic obstructive pulmonary disease with (acute) exacerbation; F17.203 Nicotine dependence unspecified, with withdrawal; M06.9 Rheumatoid arthritis, unspecified; K21.9 Gastro-esophageal reflux disease without esophagitis; F41.8 Other specified anxiety disorders; F31.9 Bipolar disorder, unspecified; K57.90 Diverticulosis of intestine, part unspecified, without perforation or abscess without bleeding; K58.9 Irritable bowel syndrome, unspecified

== ENCOUNTER 2019-06-02 11:29 | Emergency (ER) | payer MEDICARE, MEDICAID ==
[~2019-06-02] VITALS: Ht 157.5 cm; Wt 70.5 kg
[~2019-06-02 11:29] MED LIST changes: +ELIQUIS5 MG PO; +FLORAJEN3 CAPS460 MG PO; +LYRICA75 MG PO; +VIBRAMYCIN 100100 MG PO
[2019-06-02 11:47] VITALS: Ht 157.5 cm; Wt 70.5 kg
[2019-06-02 12:19] LABS: BASOPHILS 0.1 % (0-2); EOSINOPHILS 0.8 % (0-7); HEMATOCRIT 36.2 % (36.0-48.0); IMMATURE GRANULOCYTES 0.3 % (0-5); LYMPHOCYTES 18.3 % (15-50); MCH 31.3 pg (26.0-34.0); MCHC 33.1 g/dL (31.0-37.0); MCV 94.5 fL (80.0-100.0); MEAN PLATELET VOLUME 9.4 fL (7.4-10.4); MONOCYTES 6.8 % (2-11); NEUTROPHILS 73.7 % (40-80); PLATELET COUNT 293 10x3/uL (130-400); RBC 3.83 10x6/uL (4.00-5.40); WBC 15.7 10x3/uL (4.8-10.8)
[2019-06-02 12:25] LABS: INR 1.16 (0.85-1.17); PROTIME 14.7 SECONDS (11.6-15.0)
[2019-06-02 12:36] LABS: ALBUMIN 3.6 g/dL (3.4-5.0); BILIRUBIN - TOTAL 0.38 mg/dL (0.2-1.3); CALCIUM 8.5 mg/dL (8.5-10.1); CARBON DIOXIDE 30.5 mmol/L (21.0-32.0); PROTEIN - SERUM 6.6 g/dL (6.4-8.2)
[2019-06-02 12:42] LABS: POTASSIUM - SERUM 2.5 mmol/L (3.5-5.1)
[2019-06-02] MEDS ORDERED: BUTALB-APAP-CA1 EACH PO (14:13)
[2019-06-02] MEDS ORDERED: LEVOFLOXACIN500 MG PO (14:13)
[2019-06-02] MEDS ORDERED: KLOR-CON 1010 MEQ PO (14:18)
[2019-06-02 14:53] VITALS: BP 132/74
== END 2019-06-02 14:54 | disposition home or self-care (01) ==
LOC: D.ER 11:29
PROVIDERS: Emergency Medicine
DX: G43.909 Migraine, unspecified, not intractable, without status migrainosus (principal); J44.9 Chronic obstructive pulmonary disease, unspecified; Z20.828 Contact with and (suspected) exposure to other viral communicable diseases; E07.9 Disorder of thyroid, unspecified; K21.9 Gastro-esophageal reflux disease without esophagitis; R91.8 Other nonspecific abnormal finding of lung field

== ENCOUNTER 2019-06-06 09:06 | Inpatient (IN) | payer MEDICARE, MEDICAID ==
[~2019-06-06] VITALS: Ht 157.5 cm; Wt 77.6 kg
[~2019-06-06 09:06] MED LIST changes: +BUTALB-APAP-CA1 EACH PO
--- NOTE | 2019-06-06 09:51 | NUR ---
RECEIVED PT TO ROOM 2110, VIA WHEELCHAIR, PT A/O X4, RESP EVEN AND UNLABORED ON RA. VITALS SIGNS STABLE. ORIENTED PT TO ROOM AND CALL LIGHT, WILL ASSESS PT AND START PLAN OF CARE.
[2019-06-06 10:23] LABS: BASOPHILS 0.2 % (0-2); EOSINOPHILS 3.6 % (0-7); HEMATOCRIT 36.9 % (36.0-48.0); HEMOGLOBIN 12.1 g/dL (12-16); IMMATURE GRANULOCYTES 0.2 % (0-5); LYMPHOCYTES 29.9 % (15-50); MCH 31.5 pg (26.0-34.0); MCHC 32.8 g/dL (31.0-37.0); MCV 96.1 fL (80.0-100.0); MEAN PLATELET VOLUME 9.2 fL (7.4-10.4); MONOCYTES 7.3 % (2-11); NEUTROPHILS 58.8 % (40-80); RBC 3.84 10x6/uL (4.00-5.40); RDW 13.1 % (11.5-14.5); WBC 9.2 10x3/uL (4.8-10.8)
[2019-06-06 10:28] LABS: ALBUMIN 3.3 g/dL (3.4-5.0); ANION GAP 8.7 mmol/L (8-16); BILIRUBIN - TOTAL 0.16 mg/dL (0.2-1.3); CALCIUM 9.2 mg/dL (8.5-10.1); CREATININE - SERUM 1.1 mg/dL (0.6-1.3); PROTEIN - SERUM 6.8 g/dL (6.4-8.2)
[2019-06-06 10:32] VITALS: BP 123/79; BMI 28.4
[2019-06-06 10:32] LABS: POTASSIUM - SERUM 2.7 mmol/L (3.5-5.1)
[2019-06-06 10:33] LABS: PLATELET COUNT 373 10x3/uL (130-400)
[2019-06-06 12:27] VITALS: BP 109/58
--- NOTE | 2019-06-06 15:33 | NUR ---
PERCOCET GIVEN FOR PAIN LEVEL OF 9/10. PT DENIES ANY OTHER NEEDS AT THIS TIME. CALL LIGHT IN REACH,NAD NOTED, WILL CONITNUE TO MONITOR.
[2019-06-06 16:10] VITALS: BP 97/63
--- NOTE | 2019-06-06 17:40 | NUR ---
10MG OF VALIUM GIVEN PER PT REQUEST. PT DENIES ANY OTHER NEEDS AT THIS TIME. CALL LIGHT IN REACH, NAD NOTED.
--- NOTE | 2019-06-06 19:14 | NUR ---
PATIENT IS ALERT AND ORIENTED, RESTING COMFORTABLY IN BED. RESPIRATIONS ARE EVEN AND UNLABORED. NO S/S OF DISTRESS. NO C/O PAIN. CALL LIGHT WITHIN REACH. WILL CPOC.
[2019-06-06 22:16] VITALS: BP 104/63
[2019-06-07 00:40] VITALS: BP 109/70
[2019-06-07 05:29] VITALS: BP 104/69
[2019-06-07 05:50] LABS: BASOPHILS 0.1 % (0-2); EOSINOPHILS 0.1 % (0-7); HEMATOCRIT 37.5 % (36.0-48.0); HEMOGLOBIN 12.3 g/dL (12-16); IMMATURE GRANULOCYTES 0.2 % (0-5); MCH 31.1 pg (26.0-34.0); MCHC 32.8 g/dL (31.0-37.0); MCV 94.7 fL (80.0-100.0); MEAN PLATELET VOLUME 9.1 fL (7.4-10.4); MONOCYTES 8.1 % (2-11); NEUTROPHILS 82.5 % (40-80); PLATELET COUNT 377 10x3/uL (130-400); RBC 3.96 10x6/uL (4.00-5.40); RDW 12.9 % (11.5-14.5); WBC 11.1 10x3/uL (4.8-10.8)
[2019-06-07 06:32] LABS: ALBUMIN 3.2 g/dL (3.4-5.0); ANION GAP 13.4 mmol/L (8-16); BILIRUBIN - TOTAL 0.2 mg/dL (0.2-1.3); C-REACTIVE PROTEIN 4.7 mg/dL (0.0-0.9); CALCIUM 8.9 mg/dL (8.5-10.1); CARBON DIOXIDE 29.8 mmol/L (21.0-32.0); MAGNESIUM - SERUM 1.6 mg/dL (1.8-2.4); PHOSPHOROUS 3.1 mg/dL (2.5-4.9); POTASSIUM - SERUM 4.2 mmol/L (3.5-5.1); PROTEIN - SERUM 6.5 g/dL (6.4-8.2)
[2019-06-07 08:40] VITALS: BP 111/57
[2019-06-07 11:29] VITALS: BP 129/75
[2019-06-07 13:26] VITALS: Ht 157.5 cm; Wt 77.6 kg
[2019-06-07 15:56] VITALS: BP 106/59
--- NOTE | 2019-06-07 19:28 | NUR ---
RECEIVED BEDSIDE REPORT. PATIENT IS ALERT AND ORIENTED, RESTING COMFORTABLY IN BED. RESPIRATIONS ARE EVEN AND UNLABORED. NO S/S OF DISTRESS. NO C/O PAIN. CALL LIGHT WITHIN REACH. WILL CPOC.
[2019-06-07 20:00] VITALS: BP 107/54
[2019-06-08] VITALS: BP 107/68
[2019-06-08 04:00] VITALS: BP 103/64
[2019-06-08 04:48] LABS: BASOPHILS 0.1 % (0-2); EOSINOPHILS 0 % (0-7); HEMATOCRIT 38.7 % (36.0-48.0); HEMOGLOBIN 12.4 g/dL (12-16); IMMATURE GRANULOCYTES 0.7 % (0-5); LYMPHOCYTES 8.8 % (15-50); MCH 31.2 pg (26.0-34.0); MEAN PLATELET VOLUME 9.1 fL (7.4-10.4); MONOCYTES 6.6 % (2-11); NEUTROPHILS 83.8 % (40-80); PLATELET COUNT 422 10x3/uL (130-400); RBC 3.98 10x6/uL (4.00-5.40); RDW 13.2 % (11.5-14.5)
[2019-06-08 04:52] LABS: MCV 97.2 fL (80.0-100.0); WBC 17.2 10x3/uL (4.8-10.8)
[2019-06-08 05:12] LABS: ALBUMIN 3.5 g/dL (3.4-5.0); ANION GAP 11.3 mmol/L (8-16); BILIRUBIN - TOTAL 0.3 mg/dL (0.2-1.3); CALCIUM 9.5 mg/dL (8.5-10.1); CARBON DIOXIDE 30.6 mmol/L (21.0-32.0); POTASSIUM - SERUM 3.9 mmol/L (3.5-5.1); PROTEIN - SERUM 7.5 g/dL (6.4-8.2)
[2019-06-08 11:09] VITALS: BP 100/66
--- NOTE | 2019-06-08 11:47 | NUR ---
I have reviewed this patient and I concur with the Shift Assessment completed by the Licensed Practical Nurse today this shift.
[2019-06-08 13:55] VITALS: BP 122/86
[2019-06-08 18:31] VITALS: BP 103/56
[2019-06-08 20:00] VITALS: BP 96/86
[2019-06-09 04:00] VITALS: BP 124/82
[2019-06-09 04:23] LABS: BASOPHILS 0 % (0-2); EOSINOPHILS 0 % (0-7); HEMATOCRIT 40.8 % (36.0-48.0); HEMOGLOBIN 13.1 g/dL (12-16); IMMATURE GRANULOCYTES 1.6 % (0-5); LYMPHOCYTES 10.5 % (15-50); MCH 31.4 pg (26.0-34.0); MCHC 32.1 g/dL (31.0-37.0); MCV 97.8 fL (80.0-100.0); MEAN PLATELET VOLUME 9.1 fL (7.4-10.4); MONOCYTES 5.5 % (2-11); NEUTROPHILS 82.4 % (40-80); PLATELET COUNT 405 10x3/uL (130-400); RBC 4.17 10x6/uL (4.00-5.40); RDW 13.4 % (11.5-14.5)
[2019-06-09 04:50] LABS: WBC 12.2 10x3/uL (4.8-10.8)
[2019-06-09 04:56] LABS: ALBUMIN 3.6 g/dL (3.4-5.0); ANION GAP 11.9 mmol/L (8-16); BILIRUBIN - TOTAL 0.23 mg/dL (0.2-1.3); CALCIUM 9.4 mg/dL (8.5-10.1); CARBON DIOXIDE 29.1 mmol/L (21.0-32.0); MAGNESIUM - SERUM 2.1 mg/dL (1.8-2.4); PROTEIN - SERUM 7.6 g/dL (6.4-8.2)
[2019-06-09 09:14] VITALS: BP 98/72
--- NOTE | 2019-06-09 11:54 | NUR ---
PT ASSISTED TO CHAIR ON RA. O2 SATS ARE 96% ON RA. WILL CTM.
[2019-06-09 12:09] VITALS: BP 115/72
--- NOTE | 2019-06-09 12:44 | NUR ---
Nutrition Follow-up: Good appetite/PO intake. Diet: Cardiac PO intake: 75-100% Wt: 167# (06/07); 170.8# (06/06) Last BM: 06/08 Labs noted: Glu 163 Meds noted: Prednisone, NS @ 30, Protonix, Lasix, KDur, electrolyte protocol -Monitor wt; noted daily wts ordered. -RD following.
[2019-06-09 17:15] VITALS: BP 121/73
--- NOTE | 2019-06-09 17:25 | NUR ---
I have reviewed this patient and I concur with the Shift Assessment completed by the Licensed Practical Nurse today this shift.
[2019-06-09 21:21] VITALS: BP 102/66
[2019-06-10] VITALS: BP 105/61
[2019-06-10 04:49] VITALS: BP 93/61
[2019-06-10 05:06] LABS: BASOPHILS 0.1 % (0-2); EOSINOPHILS 0.6 % (0-7); HEMATOCRIT 38.1 % (36.0-48.0); HEMOGLOBIN 12.2 g/dL (12-16); IMMATURE GRANULOCYTES 2.1 % (0-5); LYMPHOCYTES 29.8 % (15-50); MCH 31.2 pg (26.0-34.0); MCV 97.4 fL (80.0-100.0); MEAN PLATELET VOLUME 9.1 fL (7.4-10.4); MONOCYTES 13.6 % (2-11); NEUTROPHILS 53.8 % (40-80); PLATELET COUNT 360 10x3/uL (130-400); RBC 3.91 10x6/uL (4.00-5.40); RDW 13.6 % (11.5-14.5); WBC 9.3 10x3/uL (4.8-10.8)
[2019-06-10 06:25] LABS: ALBUMIN 3.2 g/dL (3.4-5.0); ANION GAP 13.7 mmol/L (8-16); BILIRUBIN - TOTAL 0.16 mg/dL (0.2-1.3); CALCIUM 9.2 mg/dL (8.5-10.1); CARBON DIOXIDE 25.3 mmol/L (21.0-32.0); CREATININE - SERUM 0.9 mg/dL (0.6-1.3); MAGNESIUM - SERUM 2.3 mg/dL (1.8-2.4); PROTEIN - SERUM 6.6 g/dL (6.4-8.2)
--- NOTE | 2019-06-10 09:54 | NUR ---
UP THIS AM WITH ASSIST, UNSTEADY, IV INFUSING, CONT TO MONITOR
[2019-06-10 10:44] VITALS: BP 102/64
[2019-06-10 12:59] VITALS: BP 111/80
[2019-06-10 16:00] VITALS: BP 112/63
--- NOTE | 2019-06-10 19:21 | NUR ---
RECEIVED REPORT, WILL ASSUME CARE OF PT, ASKING ABOUT PAIN MEDS INCLUDING FLEXERIL, WILL GIVE WHEN DUE, BED IS LOW, CALL LIGHT IN REACH,WILL CONTINUE PLAN OF CARE
[2019-06-10 20:00] VITALS: BP 100/64
[2019-06-11] VITALS: BP 105/68
[2019-06-11 04:00] VITALS: BP 100/66
[2019-06-11 05:36] LABS: BASOPHILS 0.1 % (0-2); EOSINOPHILS 0.8 % (0-7); HEMATOCRIT 36.9 % (36.0-48.0); IMMATURE GRANULOCYTES 1.4 % (0-5); LYMPHOCYTES 24.4 % (15-50); MCH 31.4 pg (26.0-34.0); MCHC 32.5 g/dL (31.0-37.0); MCV 96.6 fL (80.0-100.0); MONOCYTES 12.2 % (2-11); NEUTROPHILS 61.1 % (40-80); PLATELET COUNT 370 10x3/uL (130-400); RBC 3.82 10x6/uL (4.00-5.40); RDW 13.5 % (11.5-14.5); WBC 9.3 10x3/uL (4.8-10.8)
[2019-06-11 06:04] LABS: BILIRUBIN - TOTAL 0.2 mg/dL (0.2-1.3); CALCIUM 8.6 mg/dL (8.5-10.1); CARBON DIOXIDE 26.7 mmol/L (21.0-32.0); CREATININE - SERUM 0.9 mg/dL (0.6-1.3); MAGNESIUM - SERUM 2.2 mg/dL (1.8-2.4); POTASSIUM - SERUM 3.7 mmol/L (3.5-5.1); PROTEIN - SERUM 6.3 g/dL (6.4-8.2)
[2019-06-11 09:18] VITALS: BP 115/64
--- NOTE | 2019-06-11 09:45 | NUR ---
RESTING IN BED, NO DISTRESS NOTED, UP AND ABOUT IN ROOM, C/O PAIN THIS AM, TELE IN PLACE
[2019-06-11 12:56] VITALS: BP 97/61
[2019-06-11] MEDS ORDERED: FUROSEMIDE20 MG PO (14:15)
[2019-06-11] MEDS ORDERED: PREDNISONE10 MG PO (14:16)
[2019-06-11] MEDS ORDERED: FLUTICASONE PRO16 GM NASAL (14:16)
[2019-06-11] MEDS ORDERED: MUCINEX600 MG PO (14:16)
[2019-06-11] MEDS ORDERED: TESSALON PERLE100 MG PO (14:16)
--- NOTE | 2019-06-11 15:00 | NUR ---
IV REMOVED, TIP INTACT, TO DC HOME
--- NOTE | 2019-06-11 15:31 | NUR ---
TAKEN TO PRIVATE VEHICLE PER W/C, REVIEWED DC PAPERS WITH PT, VOICED NO CONCERNS
--- NOTE | 2019-06-11 18:22 | MORECARE ---
CASE MANAGEMENT DISCHARGE SUMMARY PATIENT: SAMPSON SALGADO UNIT: [id number] ADM DATE: 06/06/19 AGE: 48 : 70 SEX: F RO[place] [place] [facility] [place] AUTHOR: CHERYL DOTY PHYSICIAN: REFERRING PHYSICIAN: CHARO MEDINA DO DATE OF SERVICE: 06/11/19 Discharge Plan Patient Name: SAMPSON SALGADO Facility: [facility]:[place] : 1970 Planned Disposition: Home with Home Health Anticipated Discharge Date: Discharge Date: 06/11/2019 Expected LOS: Initial Reviewer: [email or web address] Initial Review Date: 06/06/2019 Generated: 06/11/19 7:22 pm Patient Name: SAMPSON SALGADO Page [id number] at 1822 All edits/amendments must be made on the electronic document DICTATION DATE: 06/11/191821 NURSE OUTREACH CASE MANAGER: SHANTI 06/11/191821 RPT#: [id number] DC DATE:06/11/19 STATUS: DIS IN [facility] [address] [place] [address] END OF REPORT
--- NOTE | 2019-06-11 18:29 | MORECARE ---
CASE MANAGEMENT DISCHARGE SUMMARY PATIENT: SAMPSON SALGADO UNIT: [id number] ADM DATE: 06/06/19 AGE: 48 : 70 SEX: F ROOM/BED: D.6826 AUTHOR: CHERYL DOTY PHYSICIAN: REFERRING PHYSICIAN: CHRAO MEDINA DO DATE OF SERVICE: 06/11/19 Discharge Plan Patient Name: SAMPSON SALGADO Facility: [facility]:[place] : 1970 Planned Disposition: Home with Home Health Anticipated Discharge Date: Discharge Date: 06/11/2019 Expected LOS: Initial Reviewer: [email or web address] Initial Review Date: 06/06/2019 Generated: 06/11/19 7:29 pm Comments DCP- Discharge Planning Updated by [email or web address]: Shabnam German on 06/11/19 5:[address] Patient Name: SMAPSON SALGADO Admission Status: Elective Accout number: [id number] Admission Date: 06-06-2019 : 1970 Admission Diagnosis:CHRONIC OBSTRUCTIVE PULMONARY DISEASE W (ACUTE) EXACERB Attending: CHARO MEDINA Current LOS: 5 Anticipated DC Date: Planned Disposition: Home with Home Health Primary Insurance: [facility] MEDICARE SOLUTIONS Discharge Planning Comments: CM met with patient to complete initial dc planning assessment. CM educated patient on the CM role and verbal consent given by patient to complete assessment. Patient lives at home with her son where she is independent with her care. At discharge patient plans to return home and feels this is a safe discharge. CM discussed availability of home health, rehab services, and medical equipment. Her son will be her straddle truck driver home. Patient has a nebulizer and home o2 ( [employer] ) Patient states that she has [facility] and wants to resume care with them. JIMI signed. d/c IMM signed Patient denied known discharge needs at this time. CM will continue to follow and will assist as needed with dc plans/needs. Male Infertility Specialist: Shabnam German DCPIA - Discharge Planning Initial Assessment Updated by [email or web address]: Shabnam German on 06/11/19 6:25 pm * Is the patient Alert and Oriented? Yes * How many steps to enter\exit or inside your home? * PCP [facility] * Pharmacy [facility] * Preadmission Environment Home with Family * ADLs Independent * Other Equipment WALKER, W/C, CANE, NEBULIZER, [facility] * List name and contact numbers for known caregivers / representatives who currently or will assist patient after discharge: KAVITHA CESPEDES - SON - [phone] BRENDA NAOMI - SPOUSE - [phone] * Verbal permission to speak to the caregivers and representatives has been obtained from the patient. Yes * Community resources currently utilized Home Health * Please name any agencies selected above. [facility] * Additional services required to return to the preadmission environment? No * Can the patient safely return to the preadmission environment? Yes * Has this patient been hospitalized within the prior 30 days at any hospital? No Last DP export: 06/11/19 5:22 pm Patient Name: SAMPSON SALGADO Page [id number] at 6762 All edits/amendments must be made on the electronic document DICTATION DATE: 06/11/191828 PORCELAIN ENAMELING SUPERVISOR: SHANTI 06/11/191828 RPT#: [id number] DC DATE:06/11/19 STATUS: DIS IN [facility] [address] [facility] [place] [address] END OF REPORT
--- NOTE | 2019-06-11 18:36 | MORECARE ---
CASE MANAGEMENT DISCHARGE SUMMARY PATIENT: SAMPSON SALGADO UNIT: [id number] ADM DATE: 06/06/19 AGE: 48 : 70 SEX: F ROOM/BED: D.6678 AUTHOR: CHERYL DOTY PHYSICIAN: REFERRING PHYSICIAN: CHARO MEDINA DO DATE OF SERVICE: 06/11/19 Discharge Plan Patient Name: SAMPSON SALGADO Facility: [facility]:[place] : 1970 Planned Disposition: Home with Home Health Anticipated Discharge Date: Discharge Date: 06/11/2019 Expected LOS: Initial Reviewer: [email or web address] Initial Review Date: 06/06/2019 Generated: 06/11/19 7:36 pm Comments DCP- Discharge Planning Updated by [id number]: Shabnam German on 06/11/19 5:[address] Patient Name: SAMPSON SALGADO Admission Status: Elective Accout number: [id number] Admission Date: 06-06-2019 : 1970 Admission Diagnosis:CHRONIC OBSTRUCTIVE PULMONARY DISEASE W (ACUTE) EXACERB Attending: CHARO MEDINA Current LOS: 5 Anticipated DC Date: Planned Disposition: Home with Home Health Primary Insurance: [facility] MEDICARE SOLUTIONS Discharge Planning Comments: CM met with patient to complete initial dc planning assessment. CM educated patient on the CM role and verbal consent given by patient to complete assessment. Patient lives at home with her son where she is independent with her care. At discharge patient plans to return home and feels this is a safe discharge. CM discussed availability of home health, rehab services, and medical equipment. Her son will be her regional truck driver home. [facility] Patient states that she has [facility] and wants to resume care with them. JIMI signed. d/c IMM signed Patient denied known discharge needs at this time. CM will continue to follow and will assist as needed with dc plans/needs. Ash Kier Boiler: Shabnam German Appended by Shabnam German on 06/11/2019 18:29 CDT: CM faxed d/c records to [facility] for resumption of care. DCPIA - Discharge Planning Initial Assessment Updated by [email or web address]: Shabnam German on 06/11/19 6:25 pm * Is the patient Alert and Oriented? Yes * How many steps to enter\exit or inside your home? * PCP CAROL * Pharmacy [facility] * Preadmission Environment Home with Family * ADLs Independent * Other Equipment WALKER, W/C, CANE, NEBULIZER, HOME 02 - [facility] * List name and contact numbers for known caregivers / representatives who currently or will assist patient after discharge: KAVITHA CESPEDES - SON - [phone] BRENDA SALGADO - SPOUSE - [phone] * Verbal permission to speak to the caregivers and representatives has been obtained from the patient. Yes * Community resources currently utilized Home Health * Please name any agencies selected above. [facility] * Additional services required to return to the preadmission environment? No * Can the patient safely return to the preadmission environment? Yes * Has this patient been hospitalized within the prior 30 days at any hospital? No Coverage Notice Reviewer: [id number] Bill German Notice Issued Date-Time: 06/11/2019 14:44 Notice Type: IM Discharge Notice Notice Delivered To: Patient Relationship to Patient: Self Truck Bench Mechanic Name: Delivery Method: HAND - Hand Delivered Rimma Days: Prior Verbal Notification: Recipient Understood Notice: Yes Recipient Signature: Yes Med Rec Note Co-signed by Attending: Coverage Notice Comment: Last DP export: 06/11/19 5:29 pm Patient Name: SAMPSON SALGADO Page [id number] at 1836 All edits/amendments must be made on the electronic document DICTATION DATE: 06/11/191835 CIGAR PACKER AND GRADER: SHANTI 06/11/191835 RPT#: [id number] DC DATE:06/11/19 STATUS: DIS IN [facility] [address] [place] [address] END OF REPORT
--- NOTE | 2019-06-11 18:43 | MORECARE ---
CASE MANAGEMENT DISCHARGE SUMMARY PATIENT: SAMPSON SALGADO UNIT: [id number] ADM DATE: 06/06/19 AGE: 48 : 70 SEX: F ROOM/BED: D.6657 AUTHOR: CHERYL DOTY PHYSICIAN: REFERRING PHYSICIAN: CHARO MEDINA DO DATE OF SERVICE: 06/11/19 Discharge Plan Patient Name: SAMPSON SALGADO Facility: [facility]:[place] : 1970 Planned Disposition: Home with Home Health Anticipated Discharge Date: Discharge Date: 06/11/2019 Expected LOS: Initial Reviewer: [email or web address] Initial Review Date: 06/06/2019 Generated: 06/11/19 7:43 pm Comments DCP- Discharge Planning Updated by [id number]: Shabnam German on 06/11/19 5:[address] Patient Name: SAMPSON SALGADO Admission Status: Elective Accout number: [id number] Admission Date: 06-06-2019 : 1970 Admission Diagnosis:CHRONIC OBSTRUCTIVE PULMONARY DISEASE W (ACUTE) EXACERB Attending: CHARO MEDINA Current LOS: 5 Anticipated DC Date: Planned Disposition: Home with Home Health Primary Insurance: [facility] MEDICARE SOLUTIONS Discharge Planning Comments: CM met with patient to complete initial dc planning assessment. CM educated patient on the CM role and verbal consent given by patient to complete assessment. Patient lives at home with her son where she is independent with her care. At discharge patient plans to return home and feels this is a safe discharge. CM discussed availability of home health, rehab services, and medical equipment. Her son will be her hearse driver home. [facility] ( [facility] ) Patient states that she has [facility] and wants to resume care with them. JIMI signed. d/c IMM signed Patient denied known discharge needs at this time. CM will continue to follow and will assist as needed with dc plans/needs. Career Resource Technician: Shabnam German Appended by Shabnam German on 06/11/2019 18:29 CDT: CM faxed d/c records to [facility] for resumption of care. DCPIA - Discharge Planning Initial Assessment Updated by [id number]: Shabnam German on 06/11/19 6:25 pm * Is the patient Alert and Oriented? Yes * How many steps to enter\exit or inside your home? * PCP CAROL * Pharmacy [facility] * Preadmission Environment Home with Family * ADLs Independent * Other Equipment WALKER, W/C, CANE, NEBULIZER, HOME 02 - [facility] * List name and contact numbers for known caregivers / representatives who currently or will assist patient after discharge: KAVITHA CESPEDES - SON - [phone] BRENDA SALGADO - SPOUSE - [phone] * Verbal permission to speak to the caregivers and representatives has been obtained from the patient. Yes * Community resources currently utilized Home Health * Please name any agencies selected above. [facility] * Additional services required to return to the preadmission environment? No * Can the patient safely return to the preadmission environment? Yes * Has this patient been hospitalized within the prior 30 days at any hospital? No Coverage Notice Reviewer: [id number] German Notice Issued Date-Time: 06/11/2019 14:44 Notice Type: IM Discharge Notice Notice Delivered To: Patient Relationship to Patient: Self Ceramic Painter Name: Delivery Method: HAND - Hand Delivered Rimma Days: Prior Verbal Notification: Recipient Understood Notice: Yes Recipient Signature: Yes Med Rec Note Co-signed by Attending: Coverage Notice Comment: Reviewer: [id number] German Notice Issued Date-Time: 06/11/2019 14:44 Notice Type: Patient Choice Letter Notice Delivered To: Patient Relationship to Patient: Self Ceramic Painter Name: Delivery Method: HAND - Hand Delivered Rimma Days: Prior Verbal Notification: Recipient Understood Notice: Yes Recipient Signature: Yes Med Rec Note Co-signed by Attending: Coverage Notice Comment: JIMI YATES Last DP export: 06/11/19 5:36 pm Patient Name: SAMPSON SALGADO Page [id number] at 1843 All edits/amendments must be made on the electronic document DICTATION DATE: 06/11/191841 PROJECT PROGRAM MANAGER: SHANTI 06/11/191841 RPT#: [id number] DC DATE:06/11/19 STATUS: DIS IN [facility] [address] [place] [address] END OF REPORT
== END 2019-06-11 15:32 | disposition home health service (06) | DRG 193 ==
LOC: D.M2 09:06
PROVIDERS: Internal Medicine Pulmonary Disease; ADMIT Family Medicine; ATTEND Family Medicine
DX: J18.9 Pneumonia, unspecified organism (principal); J96.01 Acute respiratory failure with hypoxia; I26.99 Other pulmonary embolism without acute cor pulmonale; J44.1 Chronic obstructive pulmonary disease with (acute) exacerbation; F17.213 Nicotine dependence, cigarettes, with withdrawal; J98.11 Atelectasis; D80.3 Selective deficiency of immunoglobulin G [IgG] subclasses; J44.0 Chronic obstructive pulmonary disease with (acute) lower respiratory infection; M06.9 Rheumatoid arthritis, unspecified; K21.9 Gastro-esophageal reflux disease without esophagitis; K58.9 Irritable bowel syndrome, unspecified; F41.8 Other specified anxiety disorders; E87.6 Hypokalemia; K57.90 Diverticulosis of intestine, part unspecified, without perforation or abscess without bleeding; K76.0 Fatty (change of) liver, not elsewhere classified

== ENCOUNTER → 2019-06-16 13:57 | Outpatient (CLI) | payer MEDICARE, MEDICAID ==
[2019-06-07 13:26] VITALS: BMI 31.2
[~2019-06-16 13:57] MED LIST changes: +ACETAMINOPHEN500 M1 PO; +MEDROL DOSE PACK4 MG PO; +MUCINEX600 MG PO
== END | disposition home or self-care (01) ==
LOC: D.MRI 11:00
PROVIDERS: ATTEND Clinical Nurse Specialist Family Health
DX: M25.552 Pain in left hip (principal)

== ENCOUNTER 2019-06-17 11:04 | Emergency (ER) | payer MEDICARE, MEDICAID ==
[~2019-06-17] VITALS: Ht 157.5 cm; Wt 71.8 kg
[~2019-06-17 11:04] MED LIST changes: -ACETAMINOPHEN500 M1 PO; -MEDROL DOSE PACK4 MG PO
[2019-06-17 11:10] VITALS: Ht 157.5 cm; Wt 71.8 kg
[2019-06-17] MEDS ORDERED: ACETAMINOPHEN500 M1 PO (11:30)
[2019-06-17] MEDS ORDERED: MEDROL DOSE PACK4 MG PO (11:30)
[2019-06-17] MEDS ORDERED: CYCLOBENZAPRINE10 MG PO (11:30)
[2019-06-17 12:10] VITALS: BP 112/68
== END 2019-06-17 12:11 | disposition home or self-care (01) ==
LOC: D.ER 11:04
DX: S93.402A Sprain of unspecified ligament of left ankle, initial encounter (principal); M79.18 Myalgia, other site; M79.662 Pain in left lower leg; T14.8XXA Other injury of unspecified body region, initial encounter; E07.9 Disorder of thyroid, unspecified; J44.9 Chronic obstructive pulmonary disease, unspecified; K21.9 Gastro-esophageal reflux disease without esophagitis; W01.0XXA Fall on same level from slipping, tripping and stumbling without subsequent striking against object, initial encounter; Y93.9 Activity, unspecified; Y92.9 Unspecified place or not applicable

== ENCOUNTER → 2019-08-14 14:18 | Outpatient (CLI) | payer MEDICARE, MEDICAID ==
[2019-06-17 11:10] VITALS: BMI 28.9
[~2019-08-14 14:18] MED LIST changes: +ACETAMINOPHEN500 M1 PO; +MEDROL DOSE PACK4 MG PO
== END | disposition home or self-care (01) ==
LOC: D.MRI 08-11 11:00
PROVIDERS: ATTEND Podiatrist
DX: S93.402A Sprain of unspecified ligament of left ankle, initial encounter (principal)

== ENCOUNTER 2019-08-30 05:45 | Day surgery (SDC) | payer MEDICARE, MEDICAID ==
[2019-08-28 10:17] LABS: HEMATOCRIT 39.5 % (36.0-48.0); HEMOGLOBIN 13.3 g/dL (12-16); MCH 31.4 pg (26.0-34.0); MCHC 33.7 g/dL (31.0-37.0); MCV 93.2 fL (80.0-100.0); MEAN PLATELET VOLUME 9.2 fL (7.4-10.4); RBC 4.24 10x6/uL (4.00-5.40); RDW 13.2 % (11.5-14.5); WBC 8.8 10x3/uL (4.8-10.8)
[2019-08-28 10:38] LABS: ANION GAP 10.7 mmol/L (8-16); CALCIUM 9.7 mg/dL (8.5-10.1); CARBON DIOXIDE 29.7 mmol/L (21.0-32.0); CREATININE - SERUM 1.1 mg/dL (0.6-1.3); POTASSIUM - SERUM 3.4 mmol/L (3.5-5.1)
--- NOTE | 2019-08-28 10:52 | NUR ---
GREWAL: T97.6 P74 R20 BP 100/68 O2SAT 99%
[~2019-08-30] VITALS: Ht 157.5 cm; Wt 62.6 kg
--- NOTE | ~2019-08-30 | OP ---
PATIENT NAME: SAMPSON SALGADO MEDICAL RECORD: [id number] :[birth year] LOCATION:D.OPS ADMISSION DATE: SURGEON: LISSA ABRAMS DPM DATE OF OPERATION: 08/30/2019 PREOPERATIVE DIAGNOSES: 1. Left ankle instability. 2. Left ankle capsulitis. 3. Left ankle bone fragment. 4. Left ankle rupture anterior talofibular ligament. POSTOPERATIVE DIAGNOSES: 1. Left ankle instability. 2. Left ankle capsulitis. 3. Left ankle bone fragment. 4. Left ankle rupture anterior talofibular ligament. PROCEDURES: 1. Left ankle scope. 2. Left ATF reconstruction. ANESTHESIA: Preoperative popliteal block per the anesthesia department as well as intraoperative general anesthesia. HEMOSTASIS: Left thigh tourniquet at 350 mmHg. PREOPERATIVE DETAILS: The patient was taken to the OR and placed on the operating table in supine position. This was followed by induction of general anesthesia. The left extremity was then prepped and draped in usual aseptic technique followed by exsanguination and inflation of tourniquet. PROCEDURE #1: Left ankle scope. A 15-blade was used to create 2 small stab incisions over the anterior lateral and anterior medial shoulder of the ankle. The incision on the lateral portal was deepened down bluntly with a hemostat. The joint was punctured. Trocar and cannula were introduced lateral. Camera was then introduced. Initial visualization of the ankle joint showed some chondromalacia on the anterior distal tip of the tibia as well as capsulitis. The lateral gutter showed that there was hypertrophied capsulitis as well as interruption of the ATF. Incision on the medial shoulder of the ankle was carried down bluntly with a hemostat. The joint was punctured with a hemostat, dilated with a trocar. The synovial shaver was introduced medially and the chondromalacia as well as hypertrophied capsule was extensively debrided. The portals were then switched with the camera introduced medially and the shaver introduced laterally. Continued extensive debridement was performed removing all hypertrophied capsule and capsular tissue that was impinging the joint. The scope and synovial shaver were then removed. PROCEDURE #2: ATF reconstruction, left ankle. The incision over the lateral shoulder was then extended in a J-shape distal and posterior. Incision was deepened down through subcutaneous tissue. The cutaneous nerves were visualized and retracted in the wound. Dissection was carried down to the joint capsule where a capsular incision was made. Upon initial inspection of the lateral gutter with the foot held in maximum inversion, there was no indication of CF rupture as the talus and fibula did not separate from one another. The ATF reconstruction was then performed utilizing internal brace into the distal OPERATIVE REPORT [id number] SAMPSON SALGADO fibula and the talar neck. Once the internal brace was put in place, excellent reduction of the ligamentous laxity was noted and reduction of the lateral ankle instability was achieved. At this time, a modified Brostrom was performed utilizing 0 FiberWire over the top of the internal brace adding an additional level of stability to the lateral ankle. The rest of the joint capsule was repaired with 3-0 Vicryl. The subcutaneous tissue was reapproximated with 4-0 Rapide and the skin was closed with 4-0 Rapide in a subcuticular technique followed by Dermabond. The incision on the medial anterior shoulder of the ankle was also closed in a simple interrupted technique utilizing 4-0 Rapide and Dermabond. Adaptic, 4 x 4 and Conform were used to dress the wound followed by application of a modified Becker compression dressing. Tourniquet was deflated. POSTOPERATIVE DETAILS: The patient tolerated the procedure well and left the OR with vital signs stable and vascular status at preoperative levels. The patient was transported to recovery per anesthesia in stable condition. TRANSINT:[id number] Voice Confirmation ID: [id number] DOCUMENT ID: [id number] LISSA ABRAMS DPM CC: [id number] DICTATION DATE: 08/30/19 1005 FARM MORTGAGE AGENT: 08/30/19 1504 [facility] 08/30/19 [place] [id number] [place] [id number]
[~2019-08-30 05:45] MED LIST changes: +VALIUM10 MG PO; -VALIUM5 MG PO
[2019-08-30] MEDS ORDERED: VITAMIN D1000 UNIT PO (06:15)
[2019-08-30] MEDS ORDERED: SINGULAIR10 MG PO (06:16)
[2019-08-30] MEDS ORDERED: XELJANZ5 MG PO (06:16)
[2019-08-30] MEDS ORDERED: FUROSEMIDE20 MG PO (06:17)
[2019-08-30] MEDS ORDERED: ZOFRAN4 MG PO (06:19)
[2019-08-30] MEDS ORDERED: POTASSIUM CHLO10 ME1 PO (06:19)
[2019-08-30] MEDS ORDERED: LOVENOX60 MG/0.6 SC (06:21)
[2019-08-30] MEDS ORDERED: PROAIR HFA8.5 G1 INH (06:23)
[2019-08-30 06:25] VITALS: BP 99/60; Ht 157.5 cm; Wt 62.6 kg
--- NOTE | 2019-08-30 07:20 | NUR ---
DR TAYLOR NOTIFIED AND REVIEWED PT's BEHAVIOR AND ASSESSMENT RESULTS. PT IS A LOW RISK PER DR TAYLOR. DR TAYLOR STATED TO GIVE RESOURCES TO PT AT TIME OF DISCHARGE. NO FURTHER ORDERS AT THIS TIME. RESOURCES REVIEWED WITH PT AND SHE VERBALIZED UNDERSTANDING.
--- NOTE | 2019-08-30 08:18 | NUR ---
0810 BLOCK COMPLETED. O2. SPOUSE AT SIDE.
--- NOTE | 2019-08-30 10:29 | NUR ---
PT REMAINS ASLEEP, NOT ROUSABLE WITH MODERATE STIMULATION. DR BETTY MAGANA AT BEDSIDE
--- NOTE | 2019-08-30 10:44 | NUR ---
PT OPENED EYES TO STIMULATION, WILL NOT FOLLOW COMMANDS, VSS, NOW BACK TO SLEEP, WILL NOT ROUSE TO MODERATE STIMULATION
--- NOTE | 2019-08-30 10:50 | NUR ---
PT AWAKENED TO STIMULUS, KNODDED HEAD TO ANSWER QUESTION, PULSEOX ELIZABETH TO 100% FROM 93%, THEN BACK TO SLEEP
--- NOTE | 2019-08-30 11:27 | NUR ---
PT STABLE BUT SLEEPY. RETURN TO OUTPT PER DR HERNÁNDEZ
--- NOTE | 2019-08-30 12:07 | NUR ---
6364 DR. ALIZA CASTELLON
--- NOTE | 2019-08-30 12:51 | NUR ---
1245-DISCHARGE INSTRUCTIONS GIVEN TO PATIENT AND FAMILY. ASSISTED PATIENT TO DRESS. ESCORTED PATIENT VIA WHEELCHAIR TO PERSONAL CAR, LEFT WITH FAMILY MEMBER DRIVING.
== END 2019-08-30 12:45 | disposition home or self-care (01) ==
LOC: D.OPS 05:45
PROVIDERS: Anesthesiology; ATTEND Podiatrist
DX: M25.372 Other instability, left ankle (principal); M77.9 Enthesopathy, unspecified; S93.492A Sprain of other ligament of left ankle, initial encounter; X58.XXXA Exposure to other specified factors, initial encounter; J45.909 Unspecified asthma, uncomplicated

== ENCOUNTER 2019-10-08 02:28 | Emergency (ER) | payer MEDICARE, MEDICAID ==
[~2019-10-08] VITALS: Ht 157.5 cm; Wt 60.5 kg
[~2019-10-08 02:28] MED LIST changes: +LOVENOX60 MG/0.6 SC; +POTASSIUM CHLO10 ME1 PO; +PROAIR HFA8.5 G1 INH; +VITAMIN D1000 UNIT PO; +XELJANZ5 MG PO
[2019-10-08 02:36] VITALS: Ht 157.5 cm; Wt 60.5 kg
[2019-10-08 02:52] LABS: BASOPHILS 0.1 % (0-2); EOSINOPHILS 0.5 % (0-7); HEMATOCRIT 31.8 % (36.0-48.0); HEMOGLOBIN 10.7 g/dL (12-16); IMMATURE GRANULOCYTES 0.2 % (0-5); LYMPHOCYTES 14.4 % (15-50); MCH 31.1 pg (26.0-34.0); MCHC 33.6 g/dL (31.0-37.0); MCV 92.4 fL (80.0-100.0); MEAN PLATELET VOLUME 9.2 fL (7.4-10.4); NEUTROPHILS 74.8 % (40-80); PLATELET COUNT 240 10x3/uL (130-400); RBC 3.44 10x6/uL (4.00-5.40); WBC 10.9 10x3/uL (4.8-10.8)
[2019-10-08 02:59] LABS: ANION GAP 11.7 mmol/L (8-16); CALCIUM 9.4 mg/dL (8.5-10.1); CARBON DIOXIDE 28.1 mmol/L (21.0-32.0); CREATININE - SERUM 1.1 mg/dL (0.6-1.3); POTASSIUM - SERUM 3.8 mmol/L (3.5-5.1)
[2019-10-08 03:04] LABS: ALBUMIN 3.1 g/dL (3.4-5.0); BILIRUBIN - TOTAL 0.35 mg/dL (0.2-1.3); PROTEIN - SERUM 6.5 g/dL (6.4-8.2)
[2019-10-08 03:32] LABS: BILIRUBIN NEGATIVE (NEGATIVE); KETONE NEGATIVE (NEGATIVE); NITRITE NEGATIVE (NEGATIVE); UROBILINOGEN NORMAL (NORMAL)
[2019-10-08 03:40] LABS: UDS - AMPHET NEGATIVE QUAL (NEGATIVE); UDS - BARB NEGATIVE QUAL (NEGATIVE); UDS - BENZO POSITIVE QUAL (NEGATIVE); UDS - COCAINE NEGATIVE QUAL (NEGATIVE); UDS - OPIATE POSITIVE QUAL (NEGATIVE); UDS - PCP NEGATIVE QUAL (NEGATIVE); UDS - THC NEGATIVE QUAL (NEGATIVE)
[2019-10-08 04:37] LABS: C-REACTIVE PROTEIN 6.4 mg/dL (0.0-0.9)
[2019-10-08 05:12] VITALS: BP 120/77
== END 2019-10-08 05:04 | disposition home or self-care (01) ==
LOC: D.ER 02:28
PROVIDERS: Family Medicine
DX: F11.90 Opioid use, unspecified, uncomplicated (principal); T42.4X5A Adverse effect of benzodiazepines, initial encounter; J44.9 Chronic obstructive pulmonary disease, unspecified; Z99.81 Dependence on supplemental oxygen; K21.9 Gastro-esophageal reflux disease without esophagitis; Z72.0 Tobacco use

== ENCOUNTER 2019-10-11 20:46 | Emergency (ER) | payer MEDICARE, MEDICAID ==
[~2019-10-11] VITALS: Ht 157.5 cm; Wt 60.5 kg
[2019-10-11 20:57] VITALS: Ht 157.5 cm; Wt 60.5 kg
[2019-10-11 21:51] LABS: HEMATOCRIT 29.2 % (36.0-48.0); HEMOGLOBIN 10.1 g/dL (12-16); LYMPHOCYTES 12.3 % (15-50); MCH 31.3 pg (26.0-34.0); MCHC 34.6 g/dL (31.0-37.0); MCV 90.4 fL (80.0-100.0); MEAN PLATELET VOLUME 8.4 fL (7.4-10.4); NEUTROPHILS 74.6 % (40-80); PLATELET COUNT 328 10x3/uL (130-400); RBC 3.23 10x6/uL (4.00-5.40); WBC 7.9 10x3/uL (4.8-10.8)
[2019-10-11 22:10] LABS: ANION GAP 12.5 mmol/L (8-16); CALCIUM 8.5 mg/dL (8.5-10.1); CARBON DIOXIDE 25.8 mmol/L (21.0-32.0); CREATININE - SERUM 0.9 mg/dL (0.6-1.3); POTASSIUM - SERUM 3.3 mmol/L (3.5-5.1)
[2019-10-11 22:16] LABS: ALBUMIN 2.9 g/dL (3.4-5.0); BILIRUBIN - TOTAL 0.23 mg/dL (0.2-1.3); C-REACTIVE PROTEIN 44.3 mg/dL (0.0-0.9); PROTEIN - SERUM 6.8 g/dL (6.4-8.2)
[2019-10-12 01:47] VITALS: BP 105/66
== END 2019-10-11 23:05 | disposition home or self-care (01) ==
LOC: D.ER 20:46
PROVIDERS: Family Medicine
DX: R41.82 Altered mental status, unspecified (principal); D64.9 Anemia, unspecified; K08.89 Other specified disorders of teeth and supporting structures; K02.9 Dental caries, unspecified; M06.9 Rheumatoid arthritis, unspecified; J44.9 Chronic obstructive pulmonary disease, unspecified; J45.909 Unspecified asthma, uncomplicated; K21.9 Gastro-esophageal reflux disease without esophagitis

== ENCOUNTER → 2019-11-21 13:02 | Outpatient (CLI) | payer MEDICARE, MEDICAID ==
[2019-10-11 20:57] VITALS: BMI 24.4
== END | disposition home or self-care (01) ==
LOC: D.US 13:02
PROVIDERS: ATTEND Internal Medicine Hematology & Oncology
DX: I26.99 Other pulmonary embolism without acute cor pulmonale (principal); J44.9 Chronic obstructive pulmonary disease, unspecified; R07.9 Chest pain, unspecified

== ENCOUNTER 2020-04-28 12:24 | Emergency (ER) | payer MEDICARE, MEDICAID ==
[~2020-04-28] VITALS: Ht 157.5 cm; Wt 56.8 kg
[~2020-04-28 12:24] MED LIST changes: +BUMEX2 MG PO; +K-DUR20 MEQ PO
[2020-04-28 12:30] VITALS: BP 113/73; Ht 157.5 cm; Wt 56.8 kg
[2020-04-28 13:04] LABS: BASOPHILS 0.2 % (0-2); EOSINOPHILS 1.5 % (0-7); HEMATOCRIT 35.1 % (36.0-48.0); HEMOGLOBIN 11.7 g/dL (12-16); IMMATURE GRANULOCYTES 0.2 % (0-5); LYMPHOCYTE ABS# 1.95 10x3/uL (1.18-3.74); LYMPHOCYTES 20.4 % (15-50); MCH 28.6 pg (26.0-34.0); MCHC 33.3 g/dL (31.0-37.0); MCV 85.8 fL (80.0-100.0); NEUTROPHIL ABS# 6.49 10x3/uL (1.56-6.13); NEUTROPHILS 67.7 % (40-80); PLATELET COUNT 421 10x3/uL (130-400); RBC 4.09 10x6/uL (4.00-5.40); RDW 15.1 % (11.5-14.5); WBC 9.6 10x3/uL (4.8-10.8)
[2020-04-28 13:09] LABS: CALC OSMOLALITY 274 mosm/kg (275-300); CALCIUM 9.2 mg/dL (8.5-10.1); CARBON DIOXIDE 26.5 mmol/L (21.0-32.0); CHLORIDE - SERUM 103 mmol/L (98-107); CREATININE - SERUM 0.9 mg/dL (0.6-1.3); GLUCOSE 104 mg/dL (74-106); POTASSIUM - SERUM 3.3 mmol/L (3.5-5.1); SODIUM 138 mmol/L (136-145); UREA NITROGEN 9 mg/dL (7-18); eGFR NON AFRICAN AMERICAN 70 mL/min (90-120)
[2020-04-28 13:11] LABS: APTT 27.2 SECONDS (22.8-39.4); INR 1.13 (0.85-1.17); PROTIME 13.4 SECONDS (11.6-15.0)
[2020-04-28 13:20] LABS: D-DIMER-QUANTITATIVE 4.5 ug/mLFEU (0.20-0.54)
[2020-04-28 13:27] LABS: ALBUMIN 3.1 g/dL (3.4-5.0); ALKALINE PHOSPHATASE 145 U/L (30-120); ALT (SGPT) 21 U/L (10-68); BILIRUBIN - TOTAL 0.12 mg/dL (0.2-1.3); CKMB 3.7 U/L (0.0-3.6); CREATINE KINASE 158 UL (21-215); PRO BNP 143 pg/mL (0-125); PROTEIN - SERUM 7.4 g/dL (6.4-8.2)
[2020-04-28 13:28] LABS: TROPONIN-I < 0.017 ng/mL (0.000-0.060)
[2020-04-28 14:32] LABS: SARS-CoV-2 ANTIGEN NEGATIVE- SARS-COV-2 (NEGATIVE)
[2020-04-28 15:02] LABS: BILIRUBIN NEGATIVE (NEGATIVE); KETONE NEGATIVE (NEGATIVE); NITRITE NEGATIVE (NEGATIVE); UROBILINOGEN NORMAL mg/dL (< 2)
[2020-04-28 15:13] LABS: UDS - AMPHET NEGATIVE QUAL (NEGATIVE); UDS - BARB NEGATIVE QUAL (NEGATIVE); UDS - BENZO POSITIVE QUAL (NEGATIVE); UDS - COCAINE NEGATIVE QUAL (NEGATIVE); UDS - OPIATE NEGATIVE QUAL (NEGATIVE); UDS - PCP NEGATIVE QUAL (NEGATIVE); UDS - THC NEGATIVE QUAL (NEGATIVE)
== END 2020-04-28 15:22 | disposition home or self-care (01) ==
LOC: D.ER 12:24
PROVIDERS: Family Medicine
DX: R07.89 Other chest pain (principal)

== ENCOUNTER 2020-06-04 19:52 | Observation (INO) | payer MEDICARE, MEDICAID ==
[~2020-06-04] VITALS: Ht 157.5 cm; Wt 65.0 kg
[2020-06-04 20:34] LABS: BASOPHILS 0.3 % (0-2); EOSINOPHILS 3.4 % (0-7); IMMATURE GRANULOCYTES 0.1 % (0-5); LYMPHOCYTE ABS# 2.12 10x3/uL (1.18-3.74); LYMPHOCYTES 29.8 % (15-50); MCH 28.8 pg (26.0-34.0); MCHC 33.3 g/dL (31.0-37.0); MCV 86.3 fL (80.0-100.0); MEAN PLATELET VOLUME 9.2 fL (7.4-10.4); MONOCYTES 11.8 % (2-11); NEUTROPHIL ABS# 3.88 10x3/uL (1.56-6.13); NEUTROPHILS 54.6 % (40-80); PLATELET COUNT 366 10x3/uL (130-400); RBC 4.17 10x6/uL (4.00-5.40); RDW 16.2 % (11.5-14.5); WBC 7.1 10x3/uL (4.8-10.8)
[2020-06-04 20:39] LABS: APTT 33.8 SECONDS (22.8-39.4); CALC OSMOLALITY 275 mosm/kg (275-300); CALCIUM 9.4 mg/dL (8.5-10.1); CARBON DIOXIDE 27.8 mmol/L (21.0-32.0); CHLORIDE - SERUM 100 mmol/L (98-107); CREATININE - SERUM 1.2 mg/dL (0.6-1.3); GLUCOSE 104 mg/dL (74-106); INR 1.11 (0.85-1.17); POTASSIUM - SERUM 3.3 mmol/L (3.5-5.1); PROTIME 13.2 SECONDS (11.6-15.0); SODIUM 138 mmol/L (136-145); UREA NITROGEN 12 mg/dL (7-18); eGFR NON AFRICAN AMERICAN 51 mL/min (90-120)
[2020-06-04 20:55] LABS: ALBUMIN 3.5 g/dL (3.4-5.0); ALKALINE PHOSPHATASE 181 U/L (30-120); ALT (SGPT) 25 U/L (10-68); BILIRUBIN - TOTAL 0.33 mg/dL (0.2-1.3); CREATINE KINASE 356 UL (21-215); MAGNESIUM - SERUM 1.9 mg/dL (1.8-2.4); PROTEIN - SERUM 7.5 g/dL (6.4-8.2); THYROID STIMULATING HORMONE 1.04 uIU/mL (0.36-3.74); TROPONIN-I < 0.017 ng/mL (0.000-0.060)
[2020-06-04 21:21] VITALS: BP 94/61
[2020-06-04 22:18] LABS: UDS - AMPHET NEGATIVE QUAL (NEGATIVE); UDS - BARB NEGATIVE QUAL (NEGATIVE); UDS - BENZO POSITIVE QUAL (NEGATIVE); UDS - COCAINE NEGATIVE QUAL (NEGATIVE); UDS - OPIATE POSITIVE QUAL (NEGATIVE); UDS - PCP NEGATIVE QUAL (NEGATIVE); UDS - THC NEGATIVE QUAL (NEGATIVE)
[2020-06-04 22:43] LABS: BILIRUBIN NEGATIVE (NEGATIVE); KETONE NEGATIVE (NEGATIVE); NITRITE NEGATIVE (NEGATIVE); UROBILINOGEN NORMAL mg/dL (< 2)
[2020-06-05 01:01] VITALS: BP 106/62; BMI 26.2
--- NOTE | 2020-06-05 03:51 | NUR ---
PATIENT CAME FROM ED, WAS LETHARGIC, BUT ORIENTED, SHE IS CURRENTLY RESTING IN BED WITH HER EYES CLOSED.
[2020-06-05 04:00] VITALS: BP 96/56
[2020-06-05 07:00] LABS: BASOPHILS 0.6 % (0-2); EOSINOPHILS 5.1 % (0-7); HEMATOCRIT 36.1 % (36.0-48.0); HEMOGLOBIN 11.9 g/dL (12-16); IMMATURE GRANULOCYTES 0.2 % (0-5); LYMPHOCYTE ABS# 1.79 10x3/uL (1.18-3.74); LYMPHOCYTES 33.5 % (15-50); MCH 28.7 pg (26.0-34.0); MEAN PLATELET VOLUME 9.2 fL (7.4-10.4); MONOCYTES 15.2 % (2-11); NEUTROPHIL ABS# 2.43 10x3/uL (1.56-6.13); NEUTROPHILS 45.4 % (40-80); PLATELET COUNT 335 10x3/uL (130-400); RBC 4.15 10x6/uL (4.00-5.40); RDW 16.6 % (11.5-14.5)
[2020-06-05 07:09] LABS: WBC 5.3 10x3/uL (4.8-10.8)
[2020-06-05 07:28] LABS: CALC OSMOLALITY 278 mosm/kg (275-300); CALCIUM 9.1 mg/dL (8.5-10.1); CARBON DIOXIDE 28.3 mmol/L (21.0-32.0); CHLORIDE - SERUM 105 mmol/L (98-107); CHOL - HDL RATIO 5.8 ratio (2.3-4.1); CHOLESTEROL, TOTAL 232 mg/dL (0-200); CKMB 10.1 U/L (0.0-3.6); CREATINE KINASE 290 UL (21-215); CREATININE - SERUM 0.9 mg/dL (0.6-1.3); GLUCOSE 84 mg/dL (74-106); HDL CHOLESTEROL 40 mg/dL (32-96); LDL CHOLESTEROL 154 mg/dL (0-100); LDL-HDL RATIO 3.9 ratio (1.5-3.5); PHOSPHOROUS 4.4 mg/dL (2.5-4.9); POTASSIUM - SERUM 3.2 mmol/L (3.5-5.1); SODIUM 141 mmol/L (136-145); T4 THYROXIN - FREE 0.63 ng/dL (0.76-1.46); THYROID STIMULATING HORMONE 0.52 uIU/mL (0.36-3.74); TRIGLYCERIDE 190 mg/dL (30-200); TROPONIN-I < 0.017 ng/mL (0.000-0.060); UREA NITROGEN 9 mg/dL (7-18); eGFR NON AFRICAN AMERICAN 70 mL/min (90-120)
--- NOTE | 2020-06-05 09:00 | NUR ---
RECIEVED BEDSIDE REPORT. AROUSES TO VOICE. DENIES NEEDS AT THIS TIME. BED LOW POSITION, CALL LIGHT IN REACH. WILL CONTINUE TO MONITOR.
[2020-06-05 09:23] VITALS: BP 173/79
[2020-06-05 12:01] LABS: CKMB 8.4 U/L (0.0-3.6); CREATINE KINASE 268 UL (21-215); TROPONIN-I < 0.017 ng/mL (0.000-0.060)
[2020-06-05 13:28] VITALS: BP 100/58
[2020-06-05 14:51] VITALS: Ht 157.5 cm; Wt 65.0 kg
[2020-06-05] MEDS ORDERED: LIPITOR20 MG PO (15:34)
[2020-06-05 17:47] VITALS: BP 95/67
--- NOTE | 2020-06-05 18:33 | NUR ---
DISCHARGE PAPERS COMPLETE. NO FURTHER QUESTIONS. TWO IV CATHS REMOVED, CATH TIPS INTACT. BELONGINGS GATHERED. LEFT UNIT VIA WHEELCHAIR TO HOME.
== END 2020-06-05 18:35 | disposition home or self-care (01) ==
LOC: D.ER 19:52 → D.MS 23:40 → OBSVTIME 23:40 → D.MS 23:40
PROVIDERS: Family Medicine; ADMIT Family Medicine; ATTEND Family Medicine
DX: G93.41 Metabolic encephalopathy (principal); Z79.01 Long term (current) use of anticoagulants; J44.9 Chronic obstructive pulmonary disease, unspecified; E11.40 Type 2 diabetes mellitus with diabetic neuropathy, unspecified; E03.9 Hypothyroidism, unspecified; M54.16 Radiculopathy, lumbar region; M79.7 Fibromyalgia; M06.9 Rheumatoid arthritis, unspecified; F41.8 Other specified anxiety disorders; E87.6 Hypokalemia; Z86.711 Personal history of pulmonary embolism; R53.1 Weakness

== ENCOUNTER 2020-06-18 07:24 | Emergency (ER) | payer MEDICARE, MEDICAID ==
[~2020-06-18] VITALS: Ht 157.5 cm; Wt 64.5 kg
[~2020-06-18 07:24] MED LIST changes: +LIPITOR20 MG PO
[2020-06-18 07:41] VITALS: BP 115/61; Ht 157.5 cm; Wt 64.5 kg
[2020-06-18] MEDS ORDERED: NAPROXEN250 MG PO (09:06)
== END 2020-06-18 09:24 | disposition home or self-care (01) ==
LOC: D.ER 07:24
DX: M25.562 Pain in left knee (principal); Z86.73 Personal history of transient ischemic attack (TIA), and cerebral infarction without residual deficits; I50.9 Heart failure, unspecified; E78.5 Hyperlipidemia, unspecified; J44.9 Chronic obstructive pulmonary disease, unspecified; K21.9 Gastro-esophageal reflux disease without esophagitis; Z72.0 Tobacco use

== ENCOUNTER → 2020-06-20 14:01 | Outpatient (CLI) | payer MEDICARE, MEDICAID ==
[2020-06-18 07:41] VITALS: BMI 26.0
[~2020-06-20 14:01] MED LIST changes: +NAPROXEN250 MG PO
[2020-06-20 16:20] LABS: NEUT - BF 90 %
[2020-06-20 16:44] LABS: PROTEIN - BODY FLUID 6.1 G/DL
== END | disposition home or self-care (01) ==
LOC: D.LABREF 14:01
PROVIDERS: ATTEND Clinical Nurse Specialist Family Health
DX: M25.462 Effusion, left knee (principal)

== ENCOUNTER → 2020-06-21 14:25 | Outpatient (CLI) | payer MEDICARE, MEDICAID ==
[2020-06-18 07:41] VITALS: BMI 26.0
== END | disposition home or self-care (01) ==
LOC: D.MRI 14:25
PROVIDERS: ATTEND Clinical Nurse Specialist Family Health
DX: M25.562 Pain in left knee (principal)

== ENCOUNTER 2020-06-27 08:32 | Observation (INO) | payer MEDICARE, MEDICAID ==
[~2020-06-27] VITALS: Ht 157.5 cm; Wt 60.5 kg
[2020-06-27 09:06] LABS: BASOPHILS 0.7 % (0-2); EOSINOPHILS 1.5 % (0-7); HEMATOCRIT 33.7 % (36.0-48.0); LYMPHOCYTES 13.9 % (15-50); MCH 27.5 pg (26.0-34.0); MCHC 32.6 g/dL (31.0-37.0); MCV 84.4 fL (80.0-100.0); MEAN PLATELET VOLUME 6.3 fL (7.4-10.4); MONOCYTES 10.7 % (2-11); NEUTROPHILS 73.2 % (40-80); RBC 3.99 10x6/uL (4.00-5.40); RDW 16.2 % (11.5-14.5); WBC 11.9 10x3/uL (4.8-10.8)
[2020-06-27 09:08] LABS: PLATELET COUNT 774 10x3/uL (130-400)
[2020-06-27 09:14] LABS: ANION GAP 9.7 mmol/L (8-16); CALCIUM 9.2 mg/dL (8.5-10.1); CARBON DIOXIDE 28.8 mmol/L (21.0-32.0); POTASSIUM - SERUM 3.5 mmol/L (3.5-5.1)
[2020-06-27 09:20] LABS: ALBUMIN 2.9 g/dL (3.4-5.0); BILIRUBIN - TOTAL 0.31 mg/dL (0.2-1.3); PROTEIN - SERUM 7.9 g/dL (6.4-8.2)
[2020-06-27 11:26] VITALS: BP 95/41
[2020-06-27 12:21] VITALS: Ht 157.5 cm; Wt 60.5 kg
[2020-06-27 17:08] VITALS: BP 85/50
[2020-06-27 20:00] VITALS: BP 91/48
--- NOTE | 2020-06-27 21:00 | NUR ---
PT SITTING UP IN BED WITHOUT DISTRESS, AOX4. IV LEFT AC SL. SCD TO RIGHT LEG. LEFT ANKLE RED AND WARM TO TOUCH. REQUESTED PAIN MEDICATION. GAVE WITH HS MEDS. DENIES OTHER NEEDS. CL IN REACH, BED ALARM ON
[2020-06-28] VITALS: BP 83/56
[2020-06-28 04:00] VITALS: BP 101/60
[2020-06-28 09:11] VITALS: BP 104/63
[2020-06-28 11:26] LABS: BASOPHILS 0.7 % (0-2); EOSINOPHILS 1.2 % (0-7); HEMATOCRIT 34.8 % (36.0-48.0); HEMOGLOBIN 11.6 g/dL (12-16); LYMPHOCYTES 17.5 % (15-50); MCHC 33.2 g/dL (31.0-37.0); MCV 84.4 fL (80.0-100.0); MEAN PLATELET VOLUME 6.4 fL (7.4-10.4); MONOCYTES 9.1 % (2-11); NEUTROPHILS 71.5 % (40-80); PLATELET COUNT 842 10x3/uL (130-400); RBC 4.12 10x6/uL (4.00-5.40); RDW 16.3 % (11.5-14.5)
[2020-06-28 11:34] LABS: CALC OSMOLALITY 283 mosm/kg (275-300); CALCIUM 8.8 mg/dL (8.5-10.1); CARBON DIOXIDE 31.7 mmol/L (21.0-32.0); CHLORIDE - SERUM 104 mmol/L (98-107); CREATININE - SERUM 0.8 mg/dL (0.6-1.3); GLUCOSE 106 mg/dL (74-106); POTASSIUM - SERUM 3.2 mmol/L (3.5-5.1); SODIUM 143 mmol/L (136-145); UREA NITROGEN 11 mg/dL (7-18); eGFR NON AFRICAN AMERICAN 81 mL/min (90-120)
[2020-06-28 11:38] LABS: WBC 7.9 10x3/uL (4.8-10.8)
[2020-06-28 11:40] LABS: ALBUMIN 2.5 g/dL (3.4-5.0); ALKALINE PHOSPHATASE 135 U/L (30-120); ALT (SGPT) 14 U/L (10-68); BILIRUBIN - TOTAL 0.14 mg/dL (0.2-1.3); PROTEIN - SERUM 7.2 g/dL (6.4-8.2)
[2020-06-28 12:35] VITALS: BP 92/64
[2020-06-28] MEDS ORDERED: DOXYCYCLINE HY100 M2 PO (13:34)
== END 2020-06-28 15:54 | disposition home or self-care (01) ==
LOC: D.ER 08:32 → D.MS 10:40 → OBSVTIME 10:40 → D.MS 17:52
PROVIDERS: Emergency Medicine; Family Medicine Adult Medicine; ADMIT Family Medicine; ATTEND Family Medicine
DX: L03.116 Cellulitis of left lower limb (principal); M25.562 Pain in left knee; F41.8 Other specified anxiety disorders; E03.9 Hypothyroidism, unspecified; E11.9 Type 2 diabetes mellitus without complications; M06.9 Rheumatoid arthritis, unspecified; D47.3 Essential (hemorrhagic) thrombocythemia

== ENCOUNTER → 2020-07-05 13:52 | Outpatient (CLI) | payer MEDICARE, MEDICAID ==
[2020-06-27 12:21] VITALS: BMI 24.4
[~2020-07-05 13:52] MED LIST changes: +DOXYCYCLINE HY100 M2 PO
[2020-07-05 16:32] LABS: BASOPHILS 1.2 % (0-2); EOSINOPHILS 1.6 % (0-7); HEMATOCRIT 38.4 % (36.0-48.0); HEMOGLOBIN 12.4 g/dL (12-16); LYMPHOCYTES 27.6 % (15-50); MCH 27.5 pg (26.0-34.0); MCHC 32.3 g/dL (31.0-37.0); MCV 85.1 fL (80.0-100.0); MEAN PLATELET VOLUME 7.1 fL (7.4-10.4); MONOCYTES 11.1 % (2-11); NEUTROPHILS 58.5 % (40-80); PLATELET COUNT 546 10x3/uL (130-400); RBC 4.52 10x6/uL (4.00-5.40); RDW 16.4 % (11.5-14.5); WBC 7.8 10x3/uL (4.8-10.8)
[2020-07-05 17:37] LABS: ERYTHROCYTE SEDIMENTATION RATE 75 mm/hr (0-20)
[2020-07-07 12:08] LABS: ANA REFLEX - DIRECT Negative (Negative)
== END | disposition home or self-care (01) ==
LOC: D.LABREF 13:52
PROVIDERS: ATTEND Clinical Nurse Specialist Family Health
DX: M25.562 Pain in left knee (principal)

== ENCOUNTER 2020-07-23 17:28 | Emergency (ER) | payer MEDICARE, MEDICAID ==
[~2020-07-23] VITALS: Ht 157.5 cm; Wt 65.5 kg
[2020-07-23 17:55] VITALS: BP 112/72; Ht 157.5 cm; Wt 65.5 kg
[2020-07-23 19:14] LABS: SARS-CoV-2 ANTIGEN NEGATIVE- SARS-COV-2 (NEGATIVE)
== END 2020-07-23 21:04 | disposition left against medical advice (07) ==
LOC: D.ER 17:28
PROVIDERS: Emergency Medicine
DX: R69 Illness, unspecified (principal)

== ENCOUNTER 2020-07-26 12:14 | Emergency (ER) | payer MEDICARE, MEDICAID ==
[~2020-07-26] VITALS: Ht 157.5 cm; Wt 62.3 kg
[2020-07-26 12:25] VITALS: Ht 157.5 cm; Wt 62.3 kg
[2020-07-26 12:54] LABS: BASOPHILS 0.7 % (0-2); EOSINOPHILS 3.8 % (0-7); HEMATOCRIT 38.1 % (36.0-48.0); HEMOGLOBIN 12.8 g/dL (12-16); LYMPHOCYTES 28.8 % (15-50); MCH 28.2 pg (26.0-34.0); MCHC 33.7 g/dL (31.0-37.0); MCV 83.6 fL (80.0-100.0); MEAN PLATELET VOLUME 6.8 fL (7.4-10.4); NEUTROPHILS 54.7 % (40-80); PLATELET COUNT 469 10x3/uL (130-400); RBC 4.56 10x6/uL (4.00-5.40); RDW 16.5 % (11.5-14.5); WBC 8.1 10x3/uL (4.8-10.8)
[2020-07-26 13:20] LABS: ANION GAP 8.9 mmol/L (8-16); CALCIUM 9.4 mg/dL (8.5-10.1); CARBON DIOXIDE 32.2 mmol/L (21.0-32.0); CREATININE - SERUM 0.9 mg/dL (0.6-1.3); POTASSIUM - SERUM 3.1 mmol/L (3.5-5.1)
[2020-07-26 13:33] LABS: ALBUMIN 3.4 g/dL (3.4-5.0); BILIRUBIN - TOTAL 0.19 mg/dL (0.2-1.3); PROTEIN - SERUM 8.3 g/dL (6.4-8.2)
[2020-07-26 14:23] LABS: UDS - AMPHET NEGATIVE QUAL (NEGATIVE); UDS - BARB NEGATIVE QUAL (NEGATIVE); UDS - BENZO POSITIVE QUAL (NEGATIVE); UDS - COCAINE NEGATIVE QUAL (NEGATIVE); UDS - OPIATE POSITIVE QUAL (NEGATIVE); UDS - PCP NEGATIVE QUAL (NEGATIVE); UDS - THC NEGATIVE QUAL (NEGATIVE)
[2020-07-26 14:49] LABS: BACTERIA FEW HPF (<MOD); BILIRUBIN NEGATIVE (NEGATIVE); KETONE NEGATIVE mg/dL (< 1+); NITRITE NEGATIVE (NEGATIVE); SQUAMOUS EPITHELIAL 2 HPF (0-4); UROBILINOGEN NORMAL mg/dL (< 2); WHITE CELLS - URINE 1 HPF (0-4)
[2020-07-26 15:47] VITALS: BP 122/68
== END 2020-07-26 15:46 | disposition home or self-care (01) ==
LOC: D.ER 12:14
PROVIDERS: Family Medicine
DX: M79.89 Other specified soft tissue disorders (principal); Z79.01 Long term (current) use of anticoagulants; W19.XXXA Unspecified fall, initial encounter; Z86.73 Personal history of transient ischemic attack (TIA), and cerebral infarction without residual deficits; I50.9 Heart failure, unspecified; E78.5 Hyperlipidemia, unspecified; J44.9 Chronic obstructive pulmonary disease, unspecified; K21.9 Gastro-esophageal reflux disease without esophagitis; E07.9 Disorder of thyroid, unspecified

== ENCOUNTER → 2020-07-29 09:42 | Outpatient (CLI) | payer MEDICARE, MEDICAID ==
[2020-07-26 12:25] VITALS: BMI 25.1
== END | disposition home or self-care (01) ==
LOC: D.RT 05-20 10:00
PROVIDERS: ATTEND Internal Medicine Pulmonary Disease
DX: J44.9 Chronic obstructive pulmonary disease, unspecified (principal)